=== PATIENT | male | born 1965 | race Caucasian/White ===

== ENCOUNTER 2019-10-06 18:04 | Inpatient (IN) | payer MEDICARE ==
[2019-10-06] MEDS ORDERED: SODIUM CHLORIDE 0.9% 1,000 ML IV STA (18:42)
--- NOTE | 2019-10-06 18:43 | ED ---
Neuro HPI - General Chief Complaint: Neuro Symptoms/Deficit Stated Complaint: lt sided weakness Time Seen by Provider: 10/06/19 18:40 Source: patient, RN notes reviewed, old records reviewed Mode of arrival: ambulatory Limitations: no limitations - History of Present Illness Is the patient presenting with stroke symptoms?: Yes -: days(s) Initial Comments: This is a 54-year-old male to the ER for evaluation. Patient has a long medical history coming in to the ED for some speech and left arm weakness symptoms began last night. Less than persistent and progressing. Slurred speech has worsened weakness is about the same. His appetite also slurred speech. Aside from most complaints patient has not no history of CVA no history of heart disease Location: speech, dysarthria, left arm History of same: No Place: home Severity: mild Quality: weak, tingling Improves With: none Worsens With: none Context: gradual onset Associated Symptoms: denies other symptoms Treatments Prior to Arrival: none - Related Data Allergies/Adverse Reactions: Allergies Allergy/AdvReac Type Severity Reaction Status Date / Time Unable to Assess Allergy Verified 10/06/19 18:25 Review of Systems ROS Statement: Those systems with pertinent positive or pertinent negative responses have been documented in the HPI. ROS Other: All systems not noted in ROS Statement are negative. General Exam Limitations: no limitations General appearance: alert, in no apparent distress Head exam: Present: atraumatic, normocephalic, normal inspection Eye exam: Present: normal appearance, PERRL, EOMI. Absent: scleral icterus, conjunctival injection, periorbital swelling ENT exam: Present: normal exam, mucous membranes moist Neck exam: Present: normal inspection. Absent: tenderness, meningismus, ly mphadenopathy Respiratory exam: Present: normal lung sounds bilaterally. Absent: respiratory distress, wheezes, rales, rhonchi, stridor Cardiovascular Exam: Present: regular rate, normal rhythm, normal heart sounds. Absent: systolic murmur, diastolic murmur, rubs, gallop, clicks GI/Abdominal exam: Present: soft, normal bowel sounds. Absent: distended, tenderness, guarding, rebound, rigid Extremities exam: Present: normal inspection, full ROM, normal capillary refill. Absent: tenderness, pedal edema, joint swelling, calf tenderness Back exam: Present: normal inspection Neurological exam: Present: alert, oriented X3, CN II-XII intact Psychiatric exam: Present: normal affect, normal mood Skin exam: Present: warm, dry, intact, normal color. Absent: rash Stroke MDM - Lab Data Result diagrams: 10/06/19 18:43 10/06/19 18:43 Lab Results 10/06/19 10/06/19 10/06/19 Range/Units 18:43 18:43 18:43 WBC 8.7 (3.8-10.6) k/uL RBC 4.19 L (4.30-5.90) m/uL Hgb 12.5 L (13.0-17.5) gm/dL Hct 37.7 L (39.0-53.0) % MCV 90.0 (80.0-100.0) fL MCH 29.9 (25.0-35.0) pg MCHC 33.3 (31.0-37.0) g/dL RDW 13.9 (11.5-15.5) % Plt Count 211 (150-450) k/uL Neutrophils % 84 % Lymphocytes % 8 % Monocytes % 6 % Eosinophils % 1 % Basophils % 0 % Neutrophils # 7.3 (1.3-7.7) k/uL Lymphocytes # 0.7 L (1.0-4.8) k/uL Monocytes # 0.5 (0-1.0) k/uL Eosinophils # 0.1 (0-0.7) k/uL Basophils # 0.0 (0-0.2) k/uL PT 9.6 (9.0-12.0) sec INR 0.9 (<1.2) APTT 22.0 (22.0-30.0) sec Sodium 139 (137-145) mmol/L Potassium 5.6 H (3.5-5.1) mmol/L Chloride 108 H (98-107) mmol/L Carbon Dioxide 23 (22-30) mmol/L Anion Gap 8 mmol/L BUN 51 H (9-20) mg/dL Creatinine 2.05 H (0.66-1.25) mg/dL Est GFR (CKD-EPI)AfAm 42 (>60 ml/min/1.73 sqM) Est GFR (CKD-EPI)NonAf 36 (>60 ml/min/1.73 sqM) Glucose 160 H (74-99) mg/dL Calcium 9.4 (8.4-10.2) mg/dL Total Bilirubin 0.5 (0.2-1.3) mg/dL AST 17 (17-59) U/L ALT 17 L (21-72) U/L Alkaline Phosphatase 124 (38-126) U/L Troponin I (0.000-0.034) ng/mL Total Protein 6.3 (6.3-8.2) g/dL Albumin 3.7 (3.5-5.0) g/dL Lipase 28 (23-300) U/L Urine Color Urine Appearance (Clear) Urine pH (5.0-8.0) Ur Specific [place] (1.001-1.035) Urine Protein (Negative) Urine Glucose (UA) (Negative) Urine Ketones (Negative) Urine Blood (Negative) Urine Nitrite (Negative) Urine Bilirubin (Negative) Urine Urobilinogen (<2.0) mg/dL Ur Leukocyte Esterase (Negative) Urine RBC (0-5) /hpf Urine WBC (0-5) /hpf 10/06/19 10/06/19 Range/Units 18:43 20:20 WBC (3.8-10.6) k/uL RBC (4.30-5.90) m/uL Hgb (13.0-17.5) gm/dL Hct (39.0-53.0) % MCV (80.0-100.0) fL MCH (25.0-35.0) pg MCHC (31.0-37.0) g/dL RDW (11.5-15.5) % Plt Count (150-450) k/uL Neutrophils % % Lymphocytes % % Monocytes % % Eosinophils % % Basophils % % Neutrophils # (1.3-7.7) k/uL Lymphocytes # (1.0-4.8) k/uL Monocytes # (0-1.0) k/uL Eosinophils # (0-0.7) k/uL Basophils # (0-0.2) k/uL PT (9.0-12.0) sec INR (<1.2) APTT (22.0-30.0) sec Sodium (137-145) mmol/L Potassium (3.5-5.1) mmol/L Chloride (98-107) mmol/L Carbon Dioxide (22-30) mmol/L Anion Gap mmol/L BUN (9-20) mg/dL Creatinine (0.66-1.25) mg/dL Est GFR (CKD-EPI)AfAm (>60 ml/min/1.73 sqM) Est GFR (CKD-EPI)NonAf (>60 ml/min/1.73 sqM) Glucose (74-99) mg/dL Calcium (8.4-10.2) mg/dL Total Bilirubin (0.2-1.3) mg/dL AST (17-59) U/L ALT (21-72) U/L Alkaline Phosphatase (38-126) U/L Troponin I 0.036 H* (0.000-0.034) ng/mL Total Protein (6.3-8.2) g/dL Albumin (3.5-5.0) g/dL Lipase (23-300) U/L Urine Color Yellow Urine Appearance Clear (Clear) Urine pH 6.5 (5.0-8.0) Ur Specific [place] 1.020 (1.001-1.035) Urine Protein 1+ H (Negative) Urine Glucose (UA) Negative (Negative) Urine Ketones Negative (Negative) Urine Blood Negative (Negative) Urine Nitrite Negative (Negative) Urine Bilirubin Negative (Negative) Urine Urobilinogen 2.0 (<2.0) mg/dL Ur Leukocyte Esterase Negative (Negative) Urine RBC 1 (0-5) /hpf Urine WBC 2 (0-5) /hpf - NIH Stroke Scale 1a. Level of Consciousness: (0) alert 1b. LOC Questions: (0) answers correctly 1c. LOC Commands: (0) performs tasks correctly 2. Best Gaze: (0) normal 3. Visual: (0) no visual loss 4. Facial Palsy: (0) normal symmetrical movement 5a. Motor Arm Left: (1) drift 5b. Motor Arm Right: (0) no drift 6a. Motor Leg Left: (0) no drift 6b. Motor Leg Right: (0) no drift 7. Limb Ataxia: (0) absent 8. Sensory: (0) normal 9. Best Language: (1) mild/moderate aphasia 10. Dysarthria: (1) mild/moderate dysarthria 11. Extinction/Inattention: (0) no abnormality - Thrombolytic Inclusion/Exclusion Thrombolytic Exclusion Criteria: Symptom Onset > 4.5 Hours - Medical Decision Making 54 -year-old male to ED w complicated medical history coming to the ED for evaluation of positive CVA symptoms would not for neurological evaluation monitor - Radiology Data Radiology results: report reviewed (CT brain is negative disease), image rev iewed - EKG Data -: EKG Interpreted by Me (EKG shows normal sinus over 69, LA 166, QRS 90, QTC 450) Past Medical History Past Medical History: Renal Disease Additional Past Medical History / Comment(s): pancreatitis History of Any Multi-Drug Resistant Organisms: None Reported Additional Past Surgical History / Comment(s): kidney and pancreases transplant, lt arm fistula Past Psychological History: No Psychological Hx Reported Smoking Status: Current every day smoker Past Alcohol Use History: Rare Past Drug Use History: None Reported Course Vital Signs 10/06/19 18:20 Temperature 98.2 F Pulse Rate 82 Respiratory 20 Rate Blood Pressure 161/91 O2 Sat by Pulse 98 Oximetry - Reevaluation(s) Reevaluation #1: 10/06/19 21:48 Medical history and medical record is reviewed Disposition Clinical Impression: Cerebrovascular accident (CVA) Disposition: ADMITTED IP TO THIS [facility] Condition: Fair Is patient prescribed a controlled substance at d/c from ED?: No Referrals: None,Stated [Primary Care Provider] - 1-2 days
--- NOTE | 2019-10-06 19:48 | XR ---
EXAMINATION TYPE: XR chest 2V DATE OF EXAM: 10/06/2019 COMPARISON: NONE HISTORY: Weakness TECHNIQUE: Frontal and lateral views of the chest are obtained. FINDINGS: Heart and mediastinum are within normal limits. Lungs are clear. Diaphragm is normal. Bony thorax is intact. IMPRESSION: Normal chest
--- NOTE | 2019-10-06 19:54 | CT ---
EXAMINATION TYPE: CT brain wo con for TPA DATE OF EXAM: 10/06/2019 COMPARISON: None HISTORY: possible stroke left sided weekness hx renal disease CT DLP: 1080.4 mGycm Automated exposure control for dose reduction was used. FINDINGS: There is cerebral cortical atrophy. There is no mass effect nor midline shift. There is no sign of in tracranial hemorrhage. Calvarium is intact. IMPRESSION: CEREBRAL ATROPHY. NO ACUTE INTRACRANIAL ABNORMALITY.
[2019-10-06 20:10] LABS: Basophils % (A) 0 %; Eosinophils # (A) 0.1 k/uL (0-0.7); Eosinophils % (A) 1 %; HCT 37.7 % (39.0-53.0); HGB 12.5 gm/dL (13.0-17.5); Lymphocytes # (A) 0.7 k/uL (1.0-4.8); Lymphocytes % (A) 8 %; MCH 29.9 pg (25.0-35.0); MCHC 33.3 g/dL (31.0-37.0); Mean Platelet Volume 6.2; Monocytes # (A) 0.5 k/uL (0-1.0); Monocytes % (A) 6 %; Neutrophils # (A) 7.3 k/uL (1.3-7.7); Neutrophils % (A) 84 %; Platelet Count 211 k/uL (150-450); RBC 4.19 m/uL (4.30-5.90); RDW 13.9 % (11.5-15.5); WBC 8.7 k/uL (3.8-10.6)
[2019-10-06 20:17] LABS: Albumin 3.7 g/dL (3.5-5.0); Calcium 9.4 mg/dL (8.4-10.2); Potassium 5.6 mmol/L (3.5-5.1); Total Bilirubin 0.5 mg/dL (0.2-1.3); Total Protein 6.3 g/dL (6.3-8.2)
[2019-10-06 20:26] LABS: Appearance,Urine Clear (Clear); Bilirubin,Urine Negative (Negative); Blood,Urine Negative (Negative); Color,Urine Yellow; Glucose,Urine (UA) Negative (Negative); Ketones,Urine Negative (Negative); Leukocyte Esterase,Urine Negative (Negative); Nitrite,Urine Negative (Negative); PH, Urine 6.5 (5.0-8.0); Protein,Urine 1+ (Negative); RBC,Urine 1 /hpf (0-5); WBC,Urine 2 /hpf (0-5)
[2019-10-06 20:30] LABS: INR 0.9 (<1.2); Prothrombin Time 9.6 sec (9.0-12.0)
[2019-10-06] MEDS ORDERED: ASPIRIN 325 MG TAB PO STA (21:45)
[2019-10-06] MEDS ORDERED: ASPIRIN 325 MG TAB ONE (23:43)
[2019-10-07 05:02] LABS: Glucose,Whole Blood 230 mg/dL (75-99)
[2019-10-07 06:50] LABS: Glucose,Whole Blood 137 mg/dL (75-99)
[2019-10-07 08:39] LABS: Calcium 8.7 mg/dL (8.4-10.2); Potassium 4.9 mmol/L (3.5-5.1)
[2019-10-07] MEDS ORDERED: HYDROcodone/APAP 5-325MG 1 EACH TAB PO PRN (08:58)
[2019-10-07] MEDS ORDERED: METOCLOPRAMIDE 5 MG TAB PO PRN (08:58)
[2019-10-07] MEDS ORDERED: ACETAMINOPHEN TAB 500 MG TAB PO PRN (08:58)
[2019-10-07] MEDS ORDERED: SIMETHICONE 80 MG CHEWABLE PO PRN (08:58)
[2019-10-07] MEDS ORDERED: LORATADINE 10 MG TAB PO PRN (08:58)
[2019-10-07] MEDS ORDERED: hydrALAZINE HCL 50 MG TAB PO SCH (09:00)
[2019-10-07] MEDS: SODIUM CHLORIDE 0.9% 1,000 ML IV SCH ×3 (09:42→17:28)
[2019-10-07] MEDS: SODIUM BICARBONATE TAB 650 MG TAB PO SCH ×4 (09:43→21:03)
[2019-10-07] MEDS: LOSARTAN 25 MG TAB PO SCH (09:43)
[2019-10-07] MEDS: predniSONE 5 MG TAB PO SCH (09:43)
[2019-10-07] MEDS: GABAPENTIN 300 MG CAP PO SCH ×3 (09:43→21:03)
[2019-10-07] MEDS: MYCOPHENOLATE MOFETIL 500 MG TAB PO SCH ×2 (09:44→20:46)
[2019-10-07] MEDS: TACROLIMUS 1 MG CAP PO SCH ×2 (09:44→20:47)
--- NOTE | 2019-10-07 09:46 | P.CNNES ---
History of Present Illness Consult date: 10/07/19 Reason for Consult: Stroke Chief complaint: Speech difficulty and LUE weakness History of Present Illness: HISTORY OF PRESENT ILLNESS: Thank you for allowing me to evaluate Mr. Richar Olson. Mr. Olson is a 54-year-old R-handed man with past medical history of pancreatitis and renal disease (from diabetes per patient), s/p kidney and pancreas transplant, diabetes, who presents with [facility] for having speech difficulty and left arm weakness. Initial NIH stroke scale 3. Patient states that he started having symptoms since Sunday, but he only came to the hospital yesterday because his sisters pressured him to. Patient states he still has slurred speech and some weakness in his L arm and leg, but slightly improved since yesterday. Patient denies ever having similar symptoms in the past. Denies headache, nausea, vomiting, double/blurry vision, numbness, tingling, SOB, CP, diarrhea, recent sickness or fevers. Pt does not have a PCP although his transplant and diabetes doctor recommended him to get one. PAST MEDICAL HISTORY: Pancreatitis and renal disease s/p kidney and pancreas transplant, PAST SURGICAL HISTORY: Kidney and pancreas transplant, left arm fistula HOME MEDICATIONS: Cialis, insulin pump, prednisone, atorvastatin, tacrolimus, losartan, sodium bicarbonate, hydralazine, omeprazole, CellCept, carvedilol, gabapentin, Percocet, Jachin, loratadine ALLERGIES: "a strong antibiotic" but does not remember name SOCIAL HISTORY: Current every day smoker. REVIEW OF SYSTEMS: The 14 systems are reviewed and no additional points are identified compared to the review of systems documented history and physical PHYSICAL EXAMINATION: VITAL SIGNS: T 97.9 HR 72 RR 18 BP 141/76 O2 sat 92% on RA GEN.: NAD, pleasant and cooperative HEENT: NCAT, sclera without icterus NECK: Supple, no carotid bruit SKIN AND EXTREMITIES: Warm to touch, no edema NEURO: MENTAL STATUS: Patient alert and oriented to self, place, time. Able to name the current president. Speech fluent, able to name and repeat, following all commands readily. Mild dysarthria. No right and left disorientation, neglect. CRANIAL NERVES II THROUGH XII: II: Pupils are equal and reactive to light symmetrically. No afferent pupillary defect. Visual gonzalez are intact. III, IV, : No ptosis. Extraocular movements full. No nystagmus. V: Facial sensation intact from V1-3. VII. mild L nasolabial fold flattening VIII: Hearing intact to finger rub bilaterally. IX, X: Symmetric palate elevation. XI: Shoulder shrug intact. XII: Tongue midline without fasciculation or atrophy. MOTOR: Normal bulk/tone. + LUE pronator drift. No tremor. LUE proximal strength 4/5, biceps triceps 4+5, finger gasket inspector 4+/5. LLE hip flexion 4+/5, knee flexion/extension 4/5, plantarflexion/dorsiflexion 5/5. RUE/RLE 5/5 strength. SENSORY: Decreased to light touch, temperature in LUE and LLE. Romberg is negative. REFLEXES: 2+ throughout. Toes are downgoing. COORDINATION: Finger to nose intact. No dysmetria. GAIT: Narrow-based and stable. Able to toe/heel/tandem walk DIAGNOSTIC TESTING: LABORATORY: WBC 8.7 hemoglobin 12.5 platelets 12/23/2017 and 0.6 INR 1.9 sodium 139 potassium 5.6 chloride 108 bicarb 23 BUN 51 creatinine 2.05 glucose 160 AST 17 ALT 17 alk phos 124 troponin 0.036 lipase 28 urinalysis 1+ protein TSH 2.860 Total Cholesterol 133 LDL 76 HDL 32 TG 127 IMAGING: CT head without contrast 10/06/2019: Cerebral atrophy. No acute intracranial abnormality. EKG: Normal SR. ASSESSMENT: 54-year-old R-handed man with past medical history of pancreatitis and renal disease (from diabetes per patient), s/p kidney and pancreas transplant, diabetes, who presents with [facility] for having speech difficulty and left arm weakness. Patient's NIH stroke scale today is a 4. Patient with dysarthria, LUE/LLE weakness and numbness. Most likely etiology small vessel disease. Risk factors include diabetes and current smoking status. RECOMMENDATIONS: 1. MRI brain without contrast 2. Carotid US 3. Transthoracic echocardiogram obtained. 4. Cardiac monitoring: no atrial arrhythmia since admission 5. ASA 81mg qday and Plavix 75mg qday (dual antiplatelet therapy for 3 weeks per POINT trial, then Plavix 75mg qday only as patient had been taking ASA previously) 7. increase dose of Atorvastatin 40mg qhs 8. Labs: A1C 9. PT/OT/ST per protocol 10. Discussed with patient about stroke prevention guidelines. Medication compliance, hypertension/diabetes control, lifestyle changes including no sm oking, drinking in moderation, losing weight, exercising, eating healthier 11. Neurology will continue to follow. Patient can be discharged after MRI brain and Carotid US obtained. 12. Patient needs to follow up with neurologist as outpatient with her 1-2 weeks of discharge Past Medical History Past Medical History: Dialysis, Hyperlipidemia, Renal Disease Additional Past Medical History / Comment(s): pancreatitis, last dialysis 2012, hernia, History of Any Multi-Drug Resistant Organisms: None Reported Additional Past Surgical History / Comment(s): kidney and pancreases transplant 2012, lt arm fistul which has been reserved june 2019 Past Anesthesia/Blood Transfusion Reactions: No Reported Reaction Past Psychological History: Depression Smoking Status: Current every day smoker Past Alcohol Use History: Rare Past Drug Use History: None Reported Medications and Allergies Home Medications Medication Instructions Recorded Confirmed Type Acetaminophen Tab [Tylenol Tab] 1,000 mg PO Q6HR PRN 10/06/19 10/06/19 History Atorvastatin [Lipitor] 20 mg PO HS 10/06/19 10/06/19 History Carvedilol 25 mg PO BID 10/06/19 10/06/19 History Gabapentin [Neurontin] 300 mg PO TID 10/06/19 10/06/19 History Hydrocodone/Acetaminophen [Jachin 1 tab PO Q4H PRN 10/06/19 10/06/19 History 5-325] Insulin Aspart (For Pump) [NovoLOG 0.01 unit SQ-PUMP CONTINUOUS 10/06/19 10/06/19 History (For Pump)] Loratadine 10 mg PO DAILY PRN 10/06/19 10/06/19 History Losartan [Cozaar] 25 mg PO DAILY 10/06/19 10/06/19 History Metoclopramide [Reglan] 5 mg PO TID PRN 10/06/19 10/06/19 History Mycophenolate Mofetil [Cellcept] 1,000 mg PO BID 10/06/19 10/06/19 History Omeprazole 40 mg PO DAILY 10/06/19 10/06/19 History Simethicone [Gas-X] 125 mg PO QID PRN 10/06/19 10/06/19 History Sodium Bicarbonate Tab 650 mg PO QID 10/06/19 10/06/19 History Tacrolimus [Prograf] 2 mg PO BID 10/06/19 10/06/19 History Tadalafil [Cialis] 5 mg PO DAILY PRN 10/06/19 10/06/19 History hydrALAZINE HCL [Apresoline] 50 mg PO TID 10/06/19 10/06/19 History oxyCODONE-APAP 5-325MG [Percocet 1 tab PO Q4HR PRN 10/06/19 10/06/19 History 5-325 mg] predniSONE 5 mg PO DAILY 10/06/19 10/06/19 History Allergies Allergy/AdvReac Type Severity Reaction Status Date / Time Unable to Assess Allergy Verified 10/06/19 21:59 Physical Examination - Vital Signs Vital Signs: Vital Signs Temp Pulse Resp BP Pulse Ox 10/07/19 06:00 68 18 157/89 94 L 10/07/19 05:00 68 17 155/83 93 L 10/07/19 04:00 97.9 F 72 18 141/76 92 L 10/07/19 03:00 72 17 141/76 94 L 10/07/19 02:00 74 19 155/78 94 L 10/07/19 01:00 73 22 155/78 94 L 10/07/19 00:30 73 16 160/96 95 10/07/19 00:15 75 24 96 10/07/19 00:00 97.6 F 80 21 167/87 96 10/06/19 18:20 98.2 F 82 20 161/91 98 Intake and Output 10/06/19 10/06/19 10/07/19 14:59 22:59 06:59 Intake Total 1600 Output Total 450 Balance 1150 Intake: IV 1600 Sodium Chloride 0.9% 1, 600 000 ml @ 100 mls/hr IV . Q10H [facility] Rx#:[id number] Sodium Chloride 0.9% 1, 1000 000 ml @ 999 mls/hr IV . Q1H1M STA Rx#:[id number] Output: Urine 450 Other: # Voids 1 Weight 83.915 kg 83.915 kg Results - Laboratory Findings CBC and BMP: 10/06/19 18:43 10/07/19 03:17 Abnormal Lab Findings: Abnormal Labs 11/25/19 11/25/19 11/25/19 18:43 18:43 18:43 RBC 4.19 L Hgb 12.5 L Hct 37.7 L Lymphocytes # 0.7 L Potassium 5.6 H Chloride 108 H BUN 51 H Creatinine 2.05 H Glucose 160 H POC Glucose (mg/dL) ALT 17 L Troponin I 0.036 H* Urine Protein 10/06/19 10/06/19 10/07/19 20:20 23:58 06:39 RBC Hgb Hct Lymphocytes # Potassium Chloride BUN Creatinine Glucose POC Glucose (mg/dL) 230 H 137 H ALT Troponin I Urine Protein 1+ H
[2019-10-07 09:51] LABS: Basophils % (A) 0 %; Eosinophils # (A) 0.1 k/uL (0-0.7); Eosinophils % (A) 1 %; HCT 34.1 % (39.0-53.0); HGB 11.5 gm/dL (13.0-17.5); Lymphocytes % (A) 14 %; MCH 30.3 pg (25.0-35.0); MCHC 33.6 g/dL (31.0-37.0); MCV 90.2 fL (80.0-100.0); Mean Platelet Volume 6.1; Monocytes # (A) 0.5 k/uL (0-1.0); Monocytes % (A) 7 %; Neutrophils # (A) 5.2 k/uL (1.3-7.7); Neutrophils % (A) 76 %; Platelet Count 175 k/uL (150-450); RBC 3.78 m/uL (4.30-5.90); RDW 13.9 % (11.5-15.5); WBC 6.9 k/uL (3.8-10.6)
[2019-10-07] MEDS: CARVEDILOL 12.5 MG TAB PO SCH ×2 (10:10→16:26)
[2019-10-07] MEDS: ASPIRIN 81 MG PO SCH (10:10)
[2019-10-07] MEDS: CLOPIDOGREL 75 MG TAB PO SCH (10:10)
--- NOTE | 2019-10-07 10:12 | ECHOF ---
Referral Reason:Thrombus MEASUREMENTS -------- HEIGHT: 172.7 cm WEIGHT: 83.9 kg BP: 157/89 RVIDd: 3.2 cm (< 3.3) IVSd: 1.3 cm (0.6 - 1.1) LVIDd: 4.2 cm (3.9 - 5.3) LVPWd: 1.5 cm (0.6 - 1.1) IVSs: 1.8 cm LVIDs: 3.6 cm LVPWs: 1.8 cm LA Diam: 3.3 cm (2.7 - 3.8) LAESV Index (A-L): 19.94 ml/m Ao Diam: 3.0 cm (2.0 - 3.7) AV Cusp: 1.5 cm (1.5 - 2.6) LA Diam: 4.1 cm (2.7 - 3.8) MV EXCURSION: 14.924 mm (> 18.000) MV EF SLOPE: 64 mm/s (70 - 150) EPSS: 1.2 cm MV E Magdiel: 0.68 m/s MV DecT: 171 ms MV A Magdiel: 0.75 m/s MV E/A Ratio: 0.91 RAP: 5.00 mmHg RVSP: 20.32 mmHg FINDINGS -------- Sinus rhythm. This was a technically good study. The left ventricular size is normal. There is mild concentric left ventricular hypertrophy. Overa ll left ventricular systolic function is normal with, an EF between 55 - 60 %. The right ventricle is normal in size. The left atrial size is normal. Normal LA size by volume 22+/-6 ml/m2. The right atrial size is normal. The aortic valve is trileaflet, and appears structurally normal. No aortic stenosis or regurgitation. Mild mitral annular calcification present. Mild mitral regurgitation is present. Mild tricuspid regurgitation present. There is no evidence of pulmonary hypertension. The right v entricular systolic pressure, as measured by Doppler, is 20.32mmHg. There is no pulmonic regurgitation present. The aortic root size is normal. There is no pericardial effusion. CONCLUSIONS -------- 1. Sinus rhythm. 2. This was a technically good study. 3. The left ventricular size is normal. 4. There is mild concentric left ventricular hypertrophy. 5. Overall left ventricular systolic function is normal with, an EF between 55 - 60 %. 6. The right ventricle is normal in size. 7. The left atrial size is normal. 8. Normal LA size by volume 22+/-6 ml/m2. 9. The right atrial size is normal. 10. The aortic valve is trileaflet, and appears structurally normal. No aortic stenosis or regurgitat ion. 11. Mild mitral annular calcification present. 12. Mild mitral regurgitation is present. 13. Mild tricuspid regurgitation present. 14. There is no evidence of pulmonary hypertension. 15. The right ventricular systolic pressure, as measured by Doppler, is 20.32mmHg. 16. There is no pulmonic regurgitation present. 17. The aortic root size is normal. 18. There is no pericardial effusion. WEAVING INSTRUCTOR: Rand Bazzi RDCS
--- NOTE | 2019-10-07 11:28 | P.HPIM ---
History of Present Illness this is a pleasant 54 years old male with past medical history of kidney and pancreatic transplant in 2012 , hyperlipidemia and chronic kidney disease since 2013,followed by pericardial effusion status post drainage as per patient,he presents because of his third speech and left upper extremity weakness of 2 days' duration with partial improvement prior to coming to the hospital. Patient states that he is a full [place] he came to [place] about 3 weeks ago for hunting season, Sunday morning he fell on ice, however later on he started developing weakness in his left upper and lower extremity associated with slurred speech. However he denies chest pain or dyspnea, no headache, no blurred vision or difficulty swallowing. Vitas looks stable and blood pressure is 157/89.labs show an unremarkable CBC, troponin is elevated at 0.03,liver enzymes not elevated, TSH 2.8,UA is not suspicious of infection.echocardiogram showed ejection fraction of 55-60%, mild valvular heart disease.EKG: Showed normal sinus rhythm at 69 with possible LVH. Chest x-ray: No acute process.CT of the brain showing cerebral atrophy with no acute intracranial process. neurologist already evaluated the patient and recommended an MRI of the brain without contrast, corrected Dopplex, echocardiogram, continue with aspirin and Plavix, Review of Systems CONSTITUTIONAL: No fever, no malaise, no fatigue. HEENT: No recent visual problems or hearing problems. Denied any sore throat. CARDIOVASCULAR: No orthopnea, PND, no palpitations, no syncope. PULMONARY: No shortness of breath, no cough, no hemoptysis. GASTROINTESTINAL: No diarrhea, no nausea, no vomiting, no abdominal pain. Normoactive bowel sounds. NEUROLOGICAL: No headaches, no weakness, no numbness. HEMATOLOGICAL: Denies any bleeding or petechiae. GENITOURINARY: Denies any burning micturition, frequency, or urgency. MUSCULOSKELETAL/RHEUMATOLOGICAL: Denies any joint pain, swelling, or any muscle pain. ENDOCRINE: Denies any polyuria or polydipsia. Past Medical History Past Medical History: Dialysis, Hyperlipidemia, Renal Disease Additional Past Medical History / Comment(s): pancreatitis, last dialysis 2012, hernia, History of Any Multi-Drug Resistant Organisms: None Reported Additional Past Surgical History / Comment(s): kidney and pancreases transplant 2012, lt arm fistul which has been reserved june 2019 Past Anesthesia/Blood Transfusion Reactions: No Reported Reaction Past Psychological History: Depression Smoking Status: Current every day smoker Past Alcohol Use History: Rare Past Drug Use History: None Reported Medications and Allergies Home Medications Medication Instructions Recorded Confirmed Type Acetaminophen Tab [Tylenol Tab] 1,000 mg PO Q6HR PRN 10/06/19 10/06/19 History Atorvastatin [Lipitor] 20 mg PO HS 10/06/19 10/06/19 History Carvedilol 25 mg PO BID 10/06/19 10/06/19 History Gabapentin [Neurontin] 300 mg PO TID 10/06/19 10/06/19 History Hydrocodone/Acetaminophen [[place] 1 tab PO Q4H PRN 10/06/19 10/06/19 History 5-325] Insulin Aspart (For Pump) [NovoLOG 0.01 unit SQ-PUMP CONTINUOUS 10/06/19 History (For Pump)] Loratadine 10 mg PO DAILY PRN 10/06/19 10/06/19 History Losartan [Cozaar] 25 mg PO DAILY 10/06/19 10/06/19 History Metoclopramide [Reglan] 5 mg PO TID PRN 10/06/19 10/06/19 History Mycophenolate Mofetil [Cellcept] 1,000 mg PO BID 10/06/19 10/06/19 History Omeprazole 40 mg PO DAILY 10/06/19 10/06/19 History Simethicone [Gas-X] 125 mg PO QID PRN 10/06/19 10/06/19 History Sodium Bicarbonate Tab 650 mg PO QID 10/06/19 10/06/19 History Tacrolimus [Prograf] 2 mg PO BID 10/06/19 10/06/19 History Tadalafil [Cialis] 5 mg PO DAILY PRN 10/06/19 10/06/19 History hydrALAZINE HCL [Apresoline] 50 mg PO TID 10/06/19 10/06/19 History oxyCODONE-APAP 5-325MG [Percocet 1 tab PO Q4HR PRN 10/06/19 10/06/19 History 5-325 mg] predniSONE 5 mg PO DAILY 10/06/19 10/06/19 History Allergies Allergy/AdvReac Type Severity Reaction Status Date / Time Unable to Assess Allergy Verified 10/06/19 21:59 Physical Exam Vitals: Vital Signs Temp Pulse Resp BP Pulse Ox 10/07/19 06:00 68 18 157/89 94 L 10/07/19 05:00 68 17 155/83 93 L 10/07/19 04:00 97.9 F 72 18 141/76 92 L 10/07/19 03:00 72 17 141/76 94 L 10/07/19 02:00 74 19 155/78 94 L 10/07/19 01:00 73 22 155/78 94 L 10/07/19 00:30 73 16 160/96 95 10/07/19 00:15 75 24 96 10/07/19 00:00 97.6 F 80 21 167/87 96 10/06/19 18:20 98.2 F 82 20 161/91 98 Intake and Output 10/06/19 10/07/19 10/07/19 22:59 06:59 14:59 Intake Total 1600 Output Total 450 Balance 1150 Intake: IV 1600 Sodium Chloride 0.9% 1, 600 000 ml @ 100 mls/hr IV . Q10H [facility] Rx#:[id number] Sodium Chloride 0.9% 1, 1000 000 ml @ 999 mls/hr IV . Q1H1M [facility] Rx#:[id number] Output: Urine 450 Other: Voiding Method Urinal # Voids 1 Weight 83.915 kg 83.915 kg GENERAL: The patient is alert and oriented x3, not in any acute distress. Well developed, well nourished. HEENT: Pupils are round and equally reacting to light. EOMI. No scleral icterus. No conjunctival pallor. Normocephalic, atraumatic. No pharyngeal erythema. No thyromegaly. CARDIOVASCULAR: S1 and S2 present. No murmurs, rubs, or gallops. PULMONARY: Chest is clear to auscultation, no wheezing or crackles. ABDOMEN: Soft, nontender, nondistended, normoactive bowel sounds. No palpable organomegaly. MUSCULOSKELETAL: No joint swelling or deformity. EXTREMITIES: No cyanosis, clubbing, or pedal edema. -NEUROLOGICAL: cranial nerves are grossly intact he has mild weakness in his left upper lower extremity, other extremities and limbs are 5/5 in strength. Sensation is intact. SKIN: No rashes. No petechiae Results CBC & Chem 7: 10/07/19 03:17 10/07/19 03:17 Labs: Abnormal Lab Results - Last 24 Hours (Table) 10/06/19 10/06/19 10/06/19 Range/Units 18:43 18:43 18:43 RBC 4.19 L (4.30-5.90) m/uL Hgb 12.5 L (13.0-17.5) gm/dL Hct 37.7 L (39.0-53.0) % Lymphocytes # 0.7 L (1.0-4.8) k/uL Potassium 5.6 H (3.5-5.1) mmol/L Chloride 108 H (98-107) mmol/L BUN 51 H (9-20) mg/dL Creatinine 2.05 H (0.66-1.25) mg/dL Glucose 160 H (74-99) mg/dL POC Glucose (mg/dL) (75-99) mg/dL ALT 17 L (21-72) U/L Troponin I 0.036 H* (0.000-0.034) ng/mL HDL Cholesterol (40-60) mg/dL Urine Protein (Negative) 10/06/19 10/06/19 10/07/19 Range/Units 20:20 23:58 03:17 RBC (4.30-5.90) m/uL Hgb (13.0-17.5) gm/dL Hct (39.0-53.0) % Lymphocytes # (1.0-4.8) k/uL Potassium (3.5-5.1) mmol/L Chloride (98-107) mmol/L BUN (9-20) mg/dL Creatinine (0.66-1.25) mg/dL Glucose (74-99) mg/dL POC Glucose (mg/dL) 230 H (75-99) mg/dL ALT (21-72) U/L Troponin I (0.000-0.034) ng/mL HDL Cholesterol 32 L (40-60) mg/dL Urine Protein 1+ H (Negative) 10/07/19 10/07/19 10/07/19 Range/Units 03:17 03:17 03:17 RBC 3.78 L (4.30-5.90) m/uL Hgb 11.5 L (13.0-17.5) gm/dL Hct 34.1 L (39.0-53.0) % Lymphocytes # (1.0-4.8) k/uL Potassium (3.5-5.1) mmol/L Chloride 112 H (98-107) mmol/L BUN 45 H (9-20) mg/dL Creatinine 1.95 H (0.66-1.25) mg/dL Glucose 173 H (74-99) mg/dL POC Glucose (mg/dL) (75-99) mg/dL ALT (21-72) U/L Troponin I 0.039 H* (0.000-0.034) ng/mL HDL Cholesterol (40-60) mg/dL Urine Protein (Negative) 10/07/19 Range/Units 06:39 RBC (4.30-5.90) m/uL Hgb (13.0-17.5) gm/dL Hct (39.0-53.0) % Lymphocytes # (1.0-4.8) k/uL Potassium (3.5-5.1) mmol/L Chloride (98-107) mmol/L BUN (9-20) mg/dL Creatinine (0.66-1.25) mg/dL Glucose (74-99) mg/dL POC Glucose (mg/dL) 137 H (75-99) mg/dL ALT (21-72) U/L Troponin I (0.000-0.034) ng/mL HDL Cholesterol (40-60) mg/dL Urine Protein (Negative) Thrombosis Risk Factor Assmnt - Choose All That Apply Any of the Below Risk Factors Present?: Yes Each Factor Represents 1 point: Age 41-60 years, Medical pt on bed rest, Obesity (BMI >25) Other Risk Factors: No Other congenital or acquired thrombophilia - If yes, enter type in comment: Yes Each Risk Factor Represents 5 Points: Stroke (< 1 month) Thrombosis Risk Factor Assessment Total Risk Factor Score: 8 Thrombosis Risk Factor Assessment Level: High Risk Assessment and Plan Assessment: acute cerebrovascular accident with left hemiparesis elevated troponin status post kidney and pancreatic transplant, since 2013 Chronic kidney disease, patient has elevated creatinine with unknown baseline. Plan: this is a pleasant 54 years old male who presents with acute stroke. continue with aspirin and Plavix, follow-up recommendation by neurologist and pulmonary/critical care team.elevated troponincall cardiology consult. Labs and medication were reviewed.. Continue same treatment. Continue with symptomatic treatment. Resume home medication. Monitor lytes and vitals. DVT and GI prophylaxis. Further recommendations of the clinical course of the patient DVT prophylaxis: Subcutaneous heparin GI Prophylaxis: Pepcid PT/OT: Pending Prognosis is guarded
[2019-10-07 11:43] LABS: Glucose,Whole Blood 167 mg/dL (75-99)
--- NOTE | 2019-10-07 12:35 | MR ---
MR brain without contrast HISTORY: Slurred speech, cerebrovascular accident, left-sided weakness and numbness Multiplanar multisequence imaging through the brain. Correlation to CT brain 10/06/2019. There is restricted diffusion in the brainstem to the right of midline in the manjeet with corresponding abnormal increased signal seen on inversion recovery T2-weighted sequences, intermediate signal on T 1-weighted images. No significant mass effect. Scattered and confluent periventricular, pericallosal, subcortical hyperintensity present on inversion recovery T2-weighted sequences. Corpus callosum, pit uitary, cervical measurement junction, cerebellopontine angles are unremarkable. Some focal encephalo malacia is present in the manjeet on the left. There are normal vascular flow voids. There is no hemorrh age or hydrocephalus. Orbits show symmetric appearance. Paranasal sinuses and mastoid air cells are w ell aerated. There is cortical atrophy. IMPRESSION: Subacute infarct. Evidence of chronic small vessel ischemia.
[2019-10-07] MEDS ORDERED: INSULIN PUMP BASAL RATES 1 EACH MISC MISCELLANE PRN (14:51)
[2019-10-07] MEDS ORDERED: INSPUCOR MISCELLANE PRN (14:51)
[2019-10-07] MEDS ORDERED: INSULIN PUMP TARGET GLUCOSE 1 EACH MISC MISCELLANE PRN (14:51)
[2019-10-07] MEDS ORDERED: INSULIN ASPART (NovoLOG) 100 UNIT/ML VIAL SQ PRN (14:51)
[2019-10-07] MEDS ORDERED: INSULIN PUMP ACTIVE INSULIN 1 EACH MISC MISCELLANE PRN (14:51)
--- NOTE | 2019-10-07 14:52 | US ---
EXAMINATION TYPE: US carotid duplex BILAT DATE OF EXAM: 10/07/2019 COMPARISON: NONE CLINICAL HISTORY: Stenosis. TIA EXAM MEASUREMENTS: RIGHT: Peak Systolic Velocity (PSV) cm/sec ----- Right CCA: 69.7 ----- Right ICA: 79.8 ----- Right ECA: 98.7 ICA/CCA ratio: 1.1 RIGHT: End Diastole cm/sec ----- Right CCA: 14.4 ----- Right ICA: 26.0 ----- Right ECA: 7.1 LEFT: Peak Systolic Velocity (PSV) cm/sec ----- Left CCA: 63.8 ----- Left ICA: 58.0 ----- Left ECA: 85.6 ICA/CCA ratio: 0.9 LEFT: End Diastole cm/sec ----- Left CCA: 11.5 ----- Left ICA: 18.8 ----- Left ECA: 14.4 VERTEBRALS (direction of flow): Right Vertebral: Antegrade Left Vertebral: Antegrade Rhythm: Normal No significant stenosis seen IMPRESSION: No evidence for hemodynamically significant stenosis. Criteria for Assigning % of Stenosis / Diameter reduction (Estimation based on the indirect measurements of the internal carotid artery velocities (ICA PSV). 1. Normal (no stenosis)=ICA PSV < 125 cm/s: ratio < 2.0: ICA EDV<40 cm/s. 2. Less than 50% stenosis=ICA PSV < 125 cm/s: ratio < 2.0: ICA EDV<40 cm/s. 3. 50 to 69% stenosis=ICA PSV of 125 to 230 cm/s: ration 2.0 ? 4.0: ICA EDV 40-100 cm/s. 4. Greater than 70% stenosis to near occlusion= ICA PSV > 230 cm/s: ratio > 4.0: ICA EDV > 100 cm/s. 5. Near occlusion= ICA PSV velocities may be low or undetectable: variable ratio and ICA EDV. 6. Total occlusion=unable to detect flow.
--- NOTE | 2019-10-07 14:52 | CONS ---
CONSULTATION Mr. Olson is a 54-year-old male who is visiting from [place], has a history of pancreatic and renal transplant but apparently his pancreas is not working, who presented with slurred speech and numbness and weakness on the left side. Cardiology consultation was requested because of mild elevation of the troponin. The patient denies any prior history of obstructive coronary artery disease. Apparently, he had pericardial effusion in the past with strain, but he had no evidence of obstructive coronary artery disease. According to him, he has no significant chest discomfort. His breathing has been stable. No dizziness. No palpitation. He has chronic peripheral edema unchanged. He has no history of PND or orthopnea. His coronary risk factors are positive for chronic tobacco user, diabetes and hyperlipidemia and hypertension. MEDICATIONS: Include Coreg 25 mg twice a day, CellCept, [place], Neurontin, Apresoline 50 mg 3 times a day, sodium bicarb, Percocet, losartan 25 mg daily, Reglan, Prograf, Lipitor 20 mg daily, prednisone, Cialis, and insulin. REVIEW OF SYSTEMS: RESPIRATORY SYSTEM: He has dyspnea on exertion. No recent wheezing or cough. GI SYSTEM: No recent GI bleed. No peptic ulcer disease. SYSTEM: No dysuria, hematuria. NERVOUS SYSTEM: No prior history of stroke or seizure. He feels that his numbness and weakness have improved. PHYSICAL EXAMINATION: He is a 54-year-old male, alert, oriented, in no apparent distress. Blood pressure running in the 150s with a diastolic of 100. Heart rate in the 60s. HEAD: Normocephalic. EYES: Sclerae nonicteric NECK: Good upstroke, no bruit. LUNGS: Clear to auscultation. HEART: Regular rate and rhythm, S1, S2. No S3 with a systolic murmur 2/6 heard at the base. No diastolic murmur no rub. ABDOMEN: Soft, nontender. Positive bowel sounds, no organomegaly. EXTREMITIES: +1 edema, intact pulses. LAB DATA: Revealed a BUN and creatinine of 51 and 2.05. Troponin 0.036 and 0.039. Cholesterol 133, LDL of 76, potassium 4.9, hemoglobin of 11.5. Echocardiogram revealed a preserved left ventricular size systolic function with no significant valvular disease. EKG revealed a sinus mechanism with evidence of limb fibers in and nonspecific ST-T wave changes. The brain MRI shows evidence of subacute infarct and evidence of chronic small-vessel disease. IMPRESSION: 1. Evidence to suggestive cerebrovascular accident with slurred speech and numbness and weakness on the left side with recovery. 2. Mild troponin elevation with no evidence of acute coronary artery syndrome, could be related to his chronic kidney disease. Patient has a high risk of having obstructive lung disease in view of multiple risk factors we had no clear symptoms. 3. Status post pancreatic and renal transplant. 4. History of hypertension. 5. Hyperlipidemia. 6. Diabetes mellitus. 7. Chronic tobacco use. RECOMMENDATION: From the cardiac standpoint, I will increase the dose of his hydralazine in view of his elevated blood pressure. Continue with his medical regimen. I discussed with the patient smoking cessation. I have discussed with him the importance of followup with a dragline engineer when he gets back in [place] and he may benefit from a nuclear scan that can be done as an outpatient. Thank you for this consult. Will follow with you. EVELIN / ION: [id number] /
[2019-10-07] MEDS: hydrALAZINE HCL 50 MG TAB PO SCH ×2 (16:26→21:03)
[2019-10-07 16:43] LABS: Glucose,Whole Blood 99 mg/dL (75-99)
[2019-10-07] MEDS: INSULIN PUMP MEAL BOLUS 1 UNIT MISC MISCELLANE SCH (17:30)
[2019-10-07 18:50] LABS: Hemoglobin A1C 11.1 % (4.0-6.0)
[2019-10-07] MEDS: FAMOTIDINE 20 MG/2 ML VIAL IV SCH (20:47)
[2019-10-07] MEDS: HEPARIN SODIUM,PORCINE 5,000 UNIT/ML 1 ML VIAL SQ SCH (20:50)
[2019-10-07 20:53] LABS: Glucose,Whole Blood 145 mg/dL (75-99)
[2019-10-07] MEDS ORDERED: ATORVASTATIN 20 MG TAB PO SCH (21:00)
[2019-10-07] MEDS ORDERED: ATORVASTATIN 40 MG TAB PO SCH (21:00)
[2019-10-07] MEDS ORDERED: ASPIRIN 325 MG TAB PO SCH (21:00)
[2019-10-08] MEDS: SODIUM CHLORIDE 0.9% 1,000 ML IV SCH (02:28)
[2019-10-08 05:46] LABS: HCT 34.7 % (39.0-53.0); MCH 29.2 pg (25.0-35.0); MCHC 31.8 g/dL (31.0-37.0); MCV 92.1 fL (80.0-100.0); Mean Platelet Volume 6.8; Platelet Count 170 k/uL (150-450); RBC 3.77 m/uL (4.30-5.90); RDW 13.8 % (11.5-15.5); WBC 6.2 k/uL (3.8-10.6)
[2019-10-08 05:56] LABS: Potassium 5.6 mmol/L (3.5-5.1)
[2019-10-08 05:57] LABS: Albumin 2.9 g/dL (3.5-5.0); Calcium 8.5 mg/dL (8.4-10.2); Total Bilirubin 0.5 mg/dL (0.2-1.3); Total Protein 5.3 g/dL (6.3-8.2)
[2019-10-08 06:57] LABS: Glucose,Whole Blood 386 mg/dL (75-99)
[2019-10-08] MEDS: INSULIN PUMP MEAL BOLUS 1 UNIT MISC MISCELLANE SCH ×3 (07:30→11:54)
--- NOTE | 2019-10-08 07:41 | PN ---
PROGRESS NOTE Mr. Olson is a 54-year-old male status post pancreatic and renal transplant who presented with left arm weakness and numbness with slurred speech. His symptoms have resolved. He is feeling well today. He denies any chest pain. He is breathing stable. He denies any dizziness, palpitation. He denies any nausea. He continues to be at this time on aspirin 81 mg daily, Lipitor 40 mg daily, carvedilol 25 mg twice a day, Plavix 75 mg daily, hydralazine 75 mg 3 times a day, losartan 25 mg daily, prednisone 5 mg daily, Prograf. PHYSICAL EXAMINATION: Blood pressure running in the 150s with a heart rate in the 70s. LUNGS: Clear. HEART: Regular rate and rhythm, S1, S2. No S3. No rub appreciated. ABDOMEN: Soft, nontender. EXTREMITIES: No edema. LAB DATA: Revealed BUN and creatinine 35 and 1.7, potassium 5.6, hemoglobin of 11. His carotid duplex scan revealed no evidence of significant obstructive carotid disease. IMPRESSION: 1. Evidence of neurological event with left arm weakness and numbness. 2. Mild troponin elevation with no evidence for acute coronary syndrome in a patient with multiple risk factors. 3. Status post pancreatic and renal transplant. 4. Hypertension. 5. Hyperlipidemia. 6. Diabetes mellitus. 7. Chronic tobacco use. RECOMMENDATION: I have discussed with the patient the need for smoking cessation. I will add to his regimen isosorbide mononitrate 60 mg daily to optimize his blood pressure control with a combination with hydralazine. I would expect he should be able to be discharged home soon and he is fine to return to [place] and we encouraged him to see a curriculum and assessment director in [place]. Patient will benefit from a further evaluation for his chronic effusion. MMODL / IJN: [id number] /
[2019-10-08] MEDS: CARVEDILOL 12.5 MG TAB PO SCH (07:51)
[2019-10-08] MEDS: CLOPIDOGREL 75 MG TAB PO SCH (07:52)
[2019-10-08] MEDS: ASPIRIN 81 MG PO SCH (07:52)
[2019-10-08] MEDS: FAMOTIDINE 20 MG/2 ML VIAL IV SCH (07:53)
[2019-10-08] MEDS: GABAPENTIN 300 MG CAP PO SCH (07:53)
[2019-10-08] MEDS: hydrALAZINE HCL 50 MG TAB PO SCH (07:53)
[2019-10-08] MEDS: LOSARTAN 25 MG TAB PO SCH (07:56)
[2019-10-08] MEDS: HEPARIN SODIUM,PORCINE 5,000 UNIT/ML 1 ML VIAL SQ SCH (07:57)
[2019-10-08] MEDS: MYCOPHENOLATE MOFETIL 500 MG TAB PO SCH (07:58)
[2019-10-08] MEDS: predniSONE 5 MG TAB PO SCH (07:58)
[2019-10-08] MEDS: SODIUM BICARBONATE TAB 650 MG TAB PO SCH ×2 (07:58→12:29)
[2019-10-08] MEDS: TACROLIMUS 1 MG CAP PO SCH (07:59)
[2019-10-08] MEDS ORDERED: ASPIRIN 81 MG PO SCH (09:00)
[2019-10-08] MEDS ORDERED: ISOSORBIDE MONONITRATE ER 30 MG TAB.ER.24H PO SCH (09:00)
[2019-10-08 09:06] VITALS: RESP 16
[2019-10-08 09:58] VITALS: BMI 28.0
[2019-10-08 10:25] LABS: Glucose,Whole Blood 73 mg/dL (75-99)
--- NOTE | 2019-10-08 10:56 | P.NPCON ---
History of Present Illness - Reason for Consult acute renal failure - History of Present Illness Reason for consultation: Chronic kidney disease and renal transplant management History of present illness: Patient is a 54-year-old male seen in renal consultation for chronic kidney disease and renal transplant management. Patient presented to the hospital on October 06 due to difficulty with his speech and generalized weakness. There was concern for stroke. Patient's brain CT was negative. However brain MRI revealed subacute infarct. He is being followed by neurology. Patient underwent simultaneous kidney and pancreatic transplant in 2012 in [place]. Patient states his pancreatic transplant failed and is currently on an insulin pump for diabetes. He denies any rejection episodes in his renal allograft. Patient states his baseline creatinine is near 2. Patient lives in [place] and is visiting here for the month of September. He denies chest pain or shortness of breath. Oral intake is good. Urine output is good. No hematuria or dysuria. Denies use of nonsteroidals. Hemodynamically stable. Blood sugars are in the 300s. Potassium was also slightly elevated. Vital signs are stable. General: The patient appeared well nourished and normally developed. HEENT: Head exam is unremarkable. Neck is without jugular venous distension. LUNGS: Lungs are clear to auscultation and percussion. Breath sounds decreased. HEART: Rate and Rhythm are regular. First and second heart sounds normal. No murmurs, rubs or gallops. ABDOMEN: Abdominal exam reveals normal bowel sounds. Non-tender and non- distended. No evidence of peritonitis. EXTREMITITES: No clubbing, cyanosis, or edema. Past Medical History Past Medical History: Dialysis, Hyperlipidemia, Renal Disease Additional Past Medical History / Comment(s): pancreatitis, last dialysis 2012, hernia, History of Any Multi-Drug Resistant Organisms: None Reported Additional Past Surgical History / Comment(s): kidney and pancreases transplant 2012, lt arm fistul which has been reserved june 2019 Past Anesthesia/Blood Transfusion Reactions: No Reported Reaction Past Psychological History: Depression Smoking Status: Current every day smoker Past Alcohol Use History: Rare Past Drug Use History: None Reported Medications and Allergies Home Medications Medication Instructions Recorded Confirmed Type Acetaminophen Tab [Tylenol Tab] 1,000 mg PO Q6HR PRN 10/06/19 10/06/19 History Atorvastatin [Lipitor] 20 mg PO HS 10/06/19 10/06/19 History Carvedilol 25 mg PO BID 10/06/19 10/06/19 History Gabapentin [Neurontin] 300 mg PO TID 10/06/19 10/06/19 History Hydrocodone/Acetaminophen [[place] 1 tab PO Q4H PRN 10/06/19 10/06/19 History 5-325] Insulin Aspart (For Pump) [NovoLOG 0.01 unit SQ-PUMP CONTINUOUS 10/06/19 10/06/19 History (For Pump)] Loratadine 10 mg PO DAILY PRN 10/06/19 10/06/19 History Losartan [Cozaar] 25 mg PO DAILY 10/06/19 10/06/19 History Metoclopramide [Reglan] 5 mg PO TID PRN 10/06/19 10/06/19 History Mycophenolate Mofetil [Cellcept] 1,000 mg PO BID 10/06/19 10/06/19 History Omeprazole 40 mg PO DAILY 10/06/19 10/06/19 History Simethicone [Gas-X] 125 mg PO QID PRN 10/06/19 10/06/19 History Sodium Bicarbonate Tab 650 mg PO QID 10/06/19 10/06/19 History Tacrolimus [Prograf] 2 mg PO BID 10/06/19 10/06/19 History Tadalafil [Cialis] 5 mg PO DAILY PRN 10/06/19 10/06/19 History hydrALAZINE HCL [Apresoline] 50 mg PO TID 10/06/19 10/06/19 History oxyCODONE-APAP 5-325MG [Percocet 1 tab PO Q4HR PRN 10/06/19 10/06/19 History 5-325 mg] predniSONE 5 mg PO DAILY 10/06/19 10/06/19 History Allergies Allergy/AdvReac Type Severity Reaction Status Date / Time No Known Drug Allergies Allergy Unknown Verified 10/07/19 12:31 Physical Exam Vitals: Vital Signs Temp Pulse Resp BP Pulse Ox 10/08/19 08:00 97.1 F L 76 16 146/83 95 10/08/19 06:30 71 18 10/08/19 06:00 67 26 H 10/08/19 05:30 80 23 10/08/19 05:00 70 31 H 10/08/19 04:30 70 19 163/82 10/08/19 04:00 76 19 10/08/19 03:30 72 18 10/08/19 03:00 70 20 156/77 10/08/19 02:30 82 20 156/77 10/08/19 02:00 82 13 156/77 10/08/19 01:30 66 19 156/77 10/08/19 01:00 66 18 10/08/19 00:30 98.1 F 66 17 156/77 10/08/19 00:00 65 19 10/07/19 23:30 66 19 10/07/19 23:00 66 15 10/07/19 22:30 68 18 10/07/19 22:05 71 20 162/90 10/07/19 22:00 72 18 10/07/19 21:30 67 8 L 10/07/19 21:00 97.8 F 74 17 162/90 10/07/19 20:30 72 15 10/07/19 20:00 69 19 10/07/19 16:00 97.9 F 80 14 156/82 96 10/07/19 13:45 72 18 171/91 10/07/19 13:30 75 27 H 171/91 96 10/07/19 13:15 82 158/106 96 10/07/19 12:00 68 22 158/106 96 Intake and Output 10/07/19 10/08/19 10/08/19 22:59 06:59 14:59 Intake Total 700 150 Output Total 1350 775 350 Balance -650 -625 -350 Intake: IV 200 150 Sodium Chloride 0.9% 1, 200 150 000 ml @ 75 mls/hr IV . [id number] [facility] Rx#:[id number] Oral 500 Output: Urine 1350 500 350 Post Void Residual 275 Other: Voiding Method Urinal Urinal Urinal # Voids 1 Weight 83.5 kg 83.5 kg Results - Lab Results Most recent lab results Calcium 8.5 mg/dL (8.4-10.2) 10/08/19 05:19 10/08/19 05:16 10/08/19 05:19 Assessment and Plan Plan: Assessment: 1. Mild acute allograft dysfunction mostly prerenal improved with IV hydration. Creatinine 1.75 today. 2. Chronic kidney disease stage III with baseline creatinine near 2 per the patient. He follows with transplant team in [place]. 3. Status post simultaneous kidney and pancreatic transplant in 2012. 4. Subacute CVA. Maintained on aspirin and Plavix. Neurology following. 5. Insulin-dependent diabetes mellitus. Patient has an insulin pump. 6. Hypertension with chronic kidney disease. 7. Mild hyperkalemia secondary to hyperglycemia. 8. Metabolic acidosis hyperchloremic, secondary to IV fluids. Maintained on oral sodium bicarbonate. Plan: Hep-Lock IV fluids. Tight blood sugar control. Repeat potassium level receiving. Maintain home antirejection medications. Continue to monitor renal function and urine output. Increase hydralazine 200 mg 3 times daily. Thank you for the consultation. I will continue to follow patient with you during his hospital stay.
[2019-10-08 11:38] LABS: Glucose,Whole Blood 77 mg/dL (75-99)
[2019-10-08 12:07] VITALS: BP 118/82; PULSE 72; TEMP 97.6
--- NOTE | 2019-10-08 13:34 | P.PN ---
Progress Note - Text Progress Note Date: 10/08/19 SUBJECTIVE/INTERVAL EVENTS: No acute overnight events. Denies any headache, nausea, vomiting, worsening/new weakness, numbness or tingling, dizziness. Patient states that he basically has gotten used to the L-sided symptoms. No complaints. Discussed with patient again in depth about his diabetes control and need to quit smoking. PHYSICAL EXAMINATION: VITAL SIGNS: T 97.1 HR 76 RR 16 BP 146/83 O2 sat 95% on RA GEN.: NAD, pleasant and cooperative HEENT: NCAT, sclera without icterus NECK: Supple, no carotid bruit SKIN AND EXTREMITIES: Warm to touch, no edema NEURO: MENTAL STATUS: Patient alert and oriented to self, place, time. Able to name the current president. Speech fluent, able to name and repeat, following all commands readily. Mild dysarthria. No right and left disorientation, neglect. CRANIAL NERVES II THROUGH XII: II: Pupils are equal and reactive to light symmetrically. No afferent pupillary defect. Visual gonzalez are intact. III, IV, : No ptosis. Extraocular movements full. No nystagmus. V: Facial sensation intact from V1-3. VII. mild L nasolabial fold flattening VIII: Hearing intact to finger rub bilaterally. IX, X: Symmetric palate elevation. XI: Shoulder shrug intact. XII: Tongue midline without fasciculation or atrophy. MOTOR: Normal bulk/tone. + LUE pronator drift. No tremor. LUE proximal strength 4/5, biceps triceps 4+5, finger farm management professor 4+/5. LLE hip flexion 4+/5, knee flexion/extension 4/5, plantarflexion/dorsiflexion 5/5. RUE/RLE 5/5 strength. SENSORY: Decreased to light touch, temperature in LUE and LLE. Romberg is negative. REFLEXES: 2+ throughout. Toes are downgoing. COORDINATION: Finger to nose intact. No dysmetria. GAIT: Narrow-based and stable. Able to toe/heel/tandem walk DIAGNOSTIC TESTING: LABORATORY: WBC 8.7 hemoglobin 12.5 platelets 12/23/2017 and 0.6 INR 1.9 sodium 139 potassium 5.6 chloride 108 bicarb 23 BUN 51 creatinine 2.05 glucose 160 AST 17 ALT 17 alk phos 124 troponin 0.036 lipase 28 urinalysis 1+ protein TSH 2.860 Total Cholesterol 133 LDL 76 HDL 32 TG 127 A1C 11.1 IMAGING: MRI brain without contrast 10/07/2019: Subacute infarct in the right manjeet. Evidence of chronic small vessel ischemia. CT head without contrast 10/06/2019: Cerebral atrophy. No acute intracranial abnormality. Carotid Doppler bilateral 10/07/2019: No evidence for hemodynamically significant stenosis. TTE 10/07/2019: Sinus rhythm. LA, RA, RV, LV sizes are normal. EF 55-60%. EKG: Normal SR. Cardiac monitoring: no atrial arrhythmia since admission ASSESSMENT: 54-year-old R-handed man with past medical history of pancreatitis and renal disease (from diabetes per patient), s/p kidney and pancreas transplant, diabetes, who presents with Dana Hagerman for having speech difficulty and left arm weakness. Patient's NIH stroke scale today is a 4. Patient with dysarthria, LUE/LLE weakness and numbness. Most likely etiology small vessel disease. Risk factors include diabetes and current smoking status. MRI brain without contrast showing a subacute infarct in the right manjeet. RECOMMENDATIONS: 1. ASA 81mg qday and Plavix 75mg qday (dual antiplatelet therapy for 3 weeks per POINT trial, then Plavix 75mg qday only as patient had been taking ASA previously) 2. c/w Atorvastatin 40mg qhs 3. PT/OT/ST per protocol 4. Discussed with patient about stroke prevention guidelines. Medication compliance, hypertension/diabetes control, lifestyle changes including no smo gus, drinking in moderation, losing weight, exercising, eating healthier 5. Neurology will sign off at this time. Please feel free to contact Neurology again if with additional questions or concerns. 6. Patient needs to follow up with neurologist as outpatient with her 1-2 weeks of discharge
[2019-10-08] MEDS ORDERED: hydrALAZINE HCL 50 MG TAB PO SCH (16:00)
--- NOTE | 2019-10-08 23:11 | DS ---
DISCHARGE SUMMARY DATE OF SERVICE: 10/08/2019 FINAL DIAGNOSES: 1. Acute left-sided stroke caused by right hemispheric lesion. 2. Elevated troponin. 3. Status post kidney and pancreatic transplant since 2012. 4. Chronic kidney disease, stage III. 5. Transplant kidney disease. 6. Anemia, normocytic; anemia of chronic disease. 7. Mild hyperkalemia. 8. Hyponatremia. 9. NO CODE, NO CPR, NO VENT. DISCHARGE DISPOSITION: The patient will be discharged in stable condition with guarded prognosis. Total time taken 35 minutes. Patient is extremely keen on going home. Discharge cleared by multiple consultants on the case. HISTORY OF PRESENT ILLNESS: This 54-year-old gentleman with past medical history of multiple medical problems was admitted with weakness on the left side and right subcortical subacute infarct was considered. The patient was seen by Neurology, Cardiology and nephrology. The patient improved significantly. A brain MRI was done which showed a subacute infarct, evidence of chronic small ischemia, also. The patient is extremely keen on going home at this time. The patient will be discharged by multiple consultants. Please refer to the consultation notes and progress notes for further details. So the patient will be discharged in a stable condition with guarded prognosis. Other neurovascular workup was basically negative. On exam, vitals are stable. CARDIOVASCULAR SYSTEM: S1, S2 muffled. ABDOMEN: Soft. NERVOUS SYSTEM: Minimal weakness on the left side. The patient is able to ambulate without support. DISCHARGE ADVICE AND MEDICATIONS: 1. Diet is cardiac. 2. Activity limited until followup. 3. Follow up with Dr. Gomez, primary physician, in 2-3 days. 4. Follow up with Dr. Hyde in one week. 5. Coreg 25 mg p.o. b.i.d. 6. CellCept 1000 mg p.o. b.i.d. 7. Cialis 5 mg p.r.n. 8. Cozaar 25 mg p.o. daily. 9. Gas-X 120 mg q.i.d. p.r.n. 10.Neurontin 300 mg p.o. t.i.d. 11.[place] 5 mg q.4 p.r.n. 12.NovoLog insulin pump. 13.Omeprazole 40 mg p.o. daily. 14.Percocet 5 mg q.4 p.r.n. 15.Prednisone 5 mg p.o. daily. 16.Prograf 2 mg p.o. b.i.d. 17.Reglan 5 mg p.o. t.i.d. p.r.n. 18.Sodium bicarb 650 mg p.o. q.i.d. 19.Tylenol 1000 mg q.6 p.r.n. 20.Apresoline 100 mg p.o. t.i.d. 21.Aspirin 81 mg p.o. daily. 22.Imdur 30 mg p.o. daily. 23.Lipitor 40 mg at bedtime. 24.Plavix 75 mg p.o. daily. 25.Follow up with Nephrology as recommended. Once again, the patient will be discharged in stable condition with guarded prognosis. MMODL / IJN: [id number] /
[2019-10-09] MEDS ORDERED: FAMOTIDINE 20 MG TAB PO SCH (09:00)
== END 2019-10-08 16:02 | disposition home or self-care (01) | DRG 65 ==
LOC: EC 18:04 → 2SICU 21:45
PROVIDERS: ADMIT Hospitalist; ATTEND Hospitalist
DX: I63.89 Other cerebral infarction (principal); G81.94 Hemiplegia, unspecified affecting left nondominant side; Z94.0 Kidney transplant status; T86.891 Other transplanted tissue failure; N17.9 Acute kidney failure, unspecified; E87.2 Acidosis; E87.1 Hypo-osmolality and hyponatremia; E11.22 Type 2 diabetes mellitus with diabetic chronic kidney disease; N18.3 Chronic kidney disease, stage 3 (moderate); E11.51 Type 2 diabetes mellitus with diabetic peripheral angiopathy without gangrene; E87.8 Other disorders of electrolyte and fluid balance, not elsewhere classified; R47.01 Aphasia; E11.65 Type 2 diabetes mellitus with hyperglycemia; E87.5 Hyperkalemia; Z66 Do not resuscitate; I12.9 Hypertensive chronic kidney disease with stage 1 through stage 4 chronic kidney disease, or unspecified chronic kidney disease; R47.1 Dysarthria and anarthria; R40.2363 Coma scale, best motor response, obeys commands, at hospital admission; R40.2143 Coma scale, eyes open, spontaneous, at hospital admission; R40.2253 Coma scale, best verbal response, oriented, at hospital admission; R29.703 NIHSS score 3; D63.1 Anemia in chronic kidney disease; F32.9 Major depressive disorder, single episode, unspecified; E78.5 Hyperlipidemia, unspecified; R79.89 Other specified abnormal findings of blood chemistry; F17.200 Nicotine dependence, unspecified, uncomplicated; Z71.6 Tobacco abuse counseling; Z79.4 Long term (current) use of insulin; Z79.52 Long term (current) use of systemic steroids; Z79.899 Other long term (current) drug therapy; Z96.41 Presence of insulin pump (external) (internal); Z87.19 Personal history of other diseases of the digestive system; Z86.79 Personal history of other diseases of the circulatory system; Z88.1 Allergy status to other antibiotic agents; W00.0XXA Fall on same level due to ice and snow, initial encounter; Y92.73 Farm field as the place of occurrence of the external cause; Y83.0 Surgical operation with transplant of whole organ as the cause of abnormal reaction of the patient, or of later complication, without mention of misadventure at the time of the procedure
CPT/HCPCS: 36415; 70450; 70551; 71046; 80048; 80053; 80061; 81001; 83036; 83690; 84132; 84443; 84484; 85025; 85027; 85610; 85730; 93005; 93306; 93880; 96360; 96361; 99285

== ENCOUNTER 2023-09-03 10:13 | Inpatient (IN) | payer MEDICARE ==
--- NOTE | 2023-09-03 11:06 | ED ---
General Adult HPI - General Chief complaint: Recheck/Abnormal Lab/Rx Stated complaint: hernia pain Time Seen by Provider: 09/03/23 10:37 Source: patient Mode of arrival: ambulatory Limitations: no limitations - History of Present Illness Initial comments: 58-year-old male with a past medical history significant for coronary artery disease and status post pancreas and kidney transplant presents to the ED with a chief complaint of leg swelling. Patient states for the past week has had swelling of his bilateral lower extremity up to his abdomen. Additionally notes increased dyspnea. Denies chest, shortness of breath. No abdominal pain. No changes in bowel or bladder habits. No other complaints. - Related Data Home Medications Medication Instructions Recorded Confirmed Acetaminophen Tab [Tylenol] 1,000 mg PO Q6HR PRN 10/06/19 10/06/19 Gabapentin [Neurontin] 300 mg PO TID 10/06/19 10/06/19 Hydrocodone/Acetaminophen [[place] 1 tab PO Q4H PRN 10/06/19 10/06/19 5-325] Insulin Aspart (For Pump) [NovoLOG 0.01 unit SQ-PUMP CONTINUOUS 10/06/19 10/06/19 (For Pump)] Loratadine 10 mg PO DAILY PRN 10/06/19 10/06/19 Losartan [Cozaar] 25 mg PO DAILY 10/06/19 10/06/19 Metoclopramide [Reglan] 5 mg PO TID PRN 10/06/19 10/06/19 Omeprazole 40 mg PO DAILY 10/06/19 10/06/19 Simethicone [Gas-X] 125 mg PO QID PRN 10/06/19 10/06/19 Sodium Bicarbonate Tab 650 mg PO QID 10/06/19 10/06/19 Tacrolimus [Prograf] 2 mg PO BID 10/06/19 10/06/19 carvediloL 25 mg PO BID 10/06/19 10/06/19 mycophenolate mofetiL [Cellcept] 1,000 mg PO BID 10/06/19 10/06/19 oxyCODONE-APAP 5-325MG [Percocet 1 tab PO Q4HR PRN 10/06/19 10/06/19 5-325 mg] predniSONE 5 mg PO DAILY 10/06/19 10/06/19 tadalafiL [Cialis] 5 mg PO DAILY PRN 10/06/19 10/06/19 Previous Rx's Medication Instructions Recorded Aspirin 81 mg PO DAILY #30 chew 10/08/19 Atorvastatin [Lipitor] 40 mg PO HS #30 tab 10/08/19 Clopidogrel [Plavix] 75 mg PO DAILY #30 tab 10/08/19 Insulin Aspart (For Pump) [NovoLOG 0.01 unit SQ-PUMP CONTINUOUS #1 10/08/19 (For Pump)] vial Isosorbide Mononitrate ER [Imdur] 30 mg PO DAILY #30 tab.er.24h 10/08/19 hydrALAZINE HCL [Apresoline] 100 mg PO TID #30 tab 10/08/19 Allergies Allergy/AdvReac Type Severity Reaction Status Date / Time No Known Drug Allergies Allergy Unknown Verified 09/03/23 10:32 Review of Systems ROS Statement: Those systems with pertinent positive or pertinent negative responses have been documented in the HPI. ROS Other: All systems not noted in ROS Statement are negative. Past Medical History Past Medical History: Dialysis, Hyperlipidemia, Renal Disease Additional Past Medical History / Comment(s): pancreatitis, last dialysis 2012, hernia, History of Any Multi-Drug Resistant Organisms: None Reported Additional Past Surgical History / Comment(s): kidney and pancreases transplant 2012, lt arm fistul which has been reserved june 2019 Past Anesthesia/Blood Transfusion Reactions: No Reported Reaction Past Psychological History: Depression Smoking Status: Current every day smoker Past Alcohol Use History: Occasional Past Drug Use History: None Reported General Exam Limitations: no limitations General appearance: alert, in no apparent distress ENT exam: Present: mucous membranes moist Respiratory exam: Present: rhonchi (Right ) GI/Abdominal exam: Present: soft Extremities exam: Present: other (2+ pitting edema bilaterally. Tenderness to palpation. Negative Homans sign.) Neurological exam: Present: alert, oriented X3 Skin exam: Present: warm, dry Course Vital Signs 09/03/23 10:30 Temperature 98.4 F Pulse Rate 70 Respiratory 24 Rate Blood Pressure 142/78 O2 Sat by Pulse 92 L Oximetry Medical Decision Making - Medical Decision Making Was pt. sent in by a medical professional or institution (, PA, STEAM ROLLER OPERATOR, urgent care, hospital, or halfway...) When possible be specific @ -No Did you speak to anyone other than the patient for history (EMS, parent, family, police, friend...)? What history was obtained from this source @ -No Did you review nursing and triage notes (agree or disagree)? Why? @ -I reviewed and agree with nursing and triage notes Were old charts reviewed (outside hosp., previous admission, EMS record, old EKG, old radiological studies, urgent care reports/EKG's, halfway records)? Report findings @ -No old charts were reviewed Differential Diagnosis (chest pain, altered mental status, abdominal pain women, abdominal pain men, vaginal bleeding, weakness, fever, dyspnea, syncope, headache, dizziness, GI bleed, back pain, seizure, CVA, palpatations, mental health, musculoskeletal)? @ -Differential Dyspnea: Coronary syndrome, arrhythmia, tamponade, asthma, COPD, pulmonary embolism, pneumonia, pneumothorax, pulmonary effusion, anaphylaxis, diabetic ketoacidosis, flailed chest, pulmonary contusion, diaphragmatic rupture, anemia, neuromuscular, this is not meant to be an all-inclusive list. EKG interpreted by me (3pts min.). @ -As above X-rays interpreted by me (1pt min.). @ -Chest x-ray interpreted by me showing bilateral pleural effusions. CT interpreted by me (1pt min.). @ -None done U/S interpreted by me (1pt. min.). @ -Doppler ultrasound by me showing no evidence of DVT. What testing was considered but not performed or refused? (CT, X-rays, U/S, labs)? Why? @ -None What meds were considered but not given or refused? Why? @ -None Did you discuss the management of the patient with other professionals (professionals i.e. , PA, STEAM ROLLER OPERATOR, lab, RT, psych nurse, sr. social media & mobile manager, river pilot, teacher, investment officer, adult protective caseworker)? Give summary @ -Case discussed with Dr. Hugo, who accepts admission Was smoking cessation discussed for >3mins.? @ -No Was critical care preformed (if so, how long)? @ -No Were there social determinants of health that impacted care today? How? (Homelessness, low income, unemployed, alcoholism, drug addiction, transportat ion, low edu. Level, literacy, decrease access to med. care, detention, rehab)? @ -No Was there de-escalation of care discussed even if they declined (Discuss DNR or withdrawal of care, Hospice)? DNR status @ -No What co-morbidities impacted this encounter? (DM, HTN, Smoking, COPD, CAD, Cancer, CVA, ARF, Chemo, Hep., AIDS, mental health diagnosis, sleep apnea, morbid obesity)? @ -Renal transplant Was patient admitted / discharged? Hospital course, mention meds given and route, prescriptions, significant lab abnormalities, going to OR and other pertinent info. @ -Admission 68-year-old male presents to the ED with complaints of bilateral lower extremity edema and dyspnea. Chest x-ray did show bilateral pleural effusion. Laboratory studies significant for an elevated potassium of 6.5, BUN of 94, creatinine of 4.02, BNP of 64,900. Hyperkalemia treatment initiated here in the ED. Patient will be admitted with consults to nephrology and cardiology. Plan of care discussed with patient and family who are in agreement. Undiagnosed new problem with uncertain prognosis? @ -No Drug Therapy requiring intensive monitoring for toxicity (Heparin, Nitro, Insulin, Cardizem)? @ -No Were any procedures done? @ -No Diagnosis/symptom? @ -Congestive heart failure, acute kidney injury Acute, or Chronic, or Acute on Chronic? @ -Acute on chronic Uncomplicated (without systemic symptoms) or Complicated (systemic symptoms)? @ -Complicated Side effects of treatment? @ -No Exacerbation, Progression, or Severe Exacerbation? @ -Exacerbation Poses a threat to life or bodily function? How? (Chest pain, [place], [place], pneumonia, PE, COPD, DKA, ARF, appy, cholecystitis, CVA, Diverticulitis, Homicidal, Suicidal, threat to staff... and all critical care pts) @ -Yes, hyperkalemia - Lab Data Result diagrams: 09/03/23 11:32 09/03/23 11:32 Lab Results 09/03/23 09/03/23 09/03/23 Range/Units 11:32 11:32 11:32 WBC 5.7 (3.8-10.6) k/uL RBC 2.61 L (4.30-5.90) m/uL Hgb 8.0 L (13.0-17.5) gm/dL Hct 26.7 L (39.0-53.0) % MCV 102.0 H (80.0-100.0) fL MCH 30.7 (25.0-35.0) pg MCHC 30.1 L (31.0-37.0) g/dL RDW 14.8 (11.5-15.5) % Plt Count 169 (150-450) k/uL MPV 8.8 Neutrophils % 82 % Lymphocytes % 9 % Monocytes % 6 % Eosinophils % 1 % Basophils % 0 % Neutrophils # 4.7 (1.3-7.7) k/uL Lymphocytes # 0.5 L (1.0-4.8) k/uL Monocytes # 0.4 (0-1.0) k/uL Eosinophils # 0.1 (0-0.7) k/uL Basophils # 0.0 (0-0.2) k/uL Hypochromasia Marked Macrocytosis Slight PT 11.5 (10.0-12.5) sec INR 1.1 (<1.2) APTT 23.4 (22.0-30.0) sec Sodium 138 (137-145) mmol/L Potassium 6.5 H* (3.5-5.1) mmol/L Chloride 112 H (98-107) mmol/L Carbon Dioxide 16 L (22-30) mmol/L Anion Gap 10 mmol/L BUN 94 H (9-20) mg/dL Creatinine 4.02 H (0.66-1.25) mg/dL Est GFR (CKD-EPI)AfAm 18 (>60 ml/min/1.73 sqM) Est GFR (CKD-EPI)NonAf 16 (>60 ml/min/1.73 sqM) Glucose 252 H (74-99) mg/dL Plasma Lactic Acid Kulwant (0.7-2.0) mmol/L Calcium 8.5 (8.4-10.2) mg/dL Total Bilirubin 0.5 (0.2-1.3) mg/dL AST 39 (17-59) U/L ALT 29 (4-49) U/L Alkaline Phosphatase 174 H (38-126) U/L Troponin I (0.000-0.034) ng/mL NT-Pro-B Natriuret Pep 53278 pg/mL Total Protein 5.3 L (6.3-8.2) g/dL Albumin 3.1 L (3.5-5.0) g/dL 09/03/23 09/03/23 Range/Units 11:32 11:32 WBC (3.8-10.6) k/uL RBC (4.30-5.90) m/uL Hgb (13.0-17.5) gm/dL Hct (39.0-53.0) % MCV (80.0-100.0) fL MCH (25.0-35.0) pg MCHC (31.0-37.0) g/dL RDW (11.5-15.5) % Plt Count (150-450) k/uL MPV Neutrophils % % Lymphocytes % % Monocytes % % Eosinophils % % Basophils % % Neutrophils # (1.3-7.7) k/uL Lymphocytes # (1.0-4.8) k/uL Monocytes # (0-1.0) k/uL Eosinophils # (0-0.7) k/uL Basophils # (0-0.2) k/uL Hypochromasia Macrocytosis PT (10.0-12.5) sec INR (<1.2) APTT (22.0-30.0) sec Sodium (137-145) mmol/L Potassium (3.5-5.1) mmol/L Chloride (98-107) mmol/L Carbon Dioxide (22-30) mmol/L Anion Gap mmol/L BUN (9-20) mg/dL Creatinine (0.66-1.25) mg/dL Est GFR (CKD-EPI)AfAm (>60 ml/min/1.73 sqM) Est GFR (CKD-EPI)NonAf (>60 ml/min/1.73 sqM) Glucose (74-99) mg/dL Plasma Lactic Acid Kulwant 1.1 (0.7-2.0) mmol/L Calcium (8.4-10.2) mg/dL Total Bilirubin (0.2-1.3) mg/dL AST (17-59) U/L ALT (4-49) U/L Alkaline Phosphatase (38-126) U/L Troponin I 0.032 (0.000-0.034) ng/mL NT-Pro-B Natriuret Pep pg/mL Total Protein (6.3-8.2) g/dL Albumin (3.5-5.0) g/dL - EKG Data EKG Comments: G shows a sinus rhythm with nonspecific ST and T-wave changes compared to prior. 67 bpm, IL 180, QRS 110, QT/QTc 411/427. Disposition Clinical Impression: Kidney failure, Heart failure Disposition: ADMITTED IP TO THIS HOSP Referrals: None,Stated [Primary Care Provider] - 1-2 days Time of Disposition: 13:04
--- NOTE | 2023-09-03 11:19 | XR ---
EXAMINATION TYPE: XR chest 2V DATE OF EXAM: 09/03/2023 11:13 AM CLINICAL INDICATION:Male, 58 years old with history of difficulty breathing; [facility] COMPARISON: Chest radiographs from 12/06/2018 TECHNIQUE: XR chest 2V Frontal and lateral views of the chest. FINDINGS: Lungs/Pleura: No evidence of focal consolidation or pneumothorax. Blunting of the costophrenic angles is present. Pulmonary vascularity: Pulmonary vascular congestion. Heart/mediastinum: Cardiomediastinal silhouette is enlarged and stable. Musculoskeletal: No acute osseous pathology. Other findings: None IMPRESSION: Small bilateral pleural effusions which are new. Given cardiomegaly and some pulmonary edema correlat e for congestive heart failure
[2023-09-03 11:43] LABS: Basophils % (A) 0 %; Eosinophils # (A) 0.1 k/uL (0-0.7); Eosinophils % (A) 1 %; HCT 26.7 % (39.0-53.0); Hypochromasia Marked; Lymphocytes # (A) 0.5 k/uL (1.0-4.8); Lymphocytes % (A) 9 %; MCH 30.7 pg (25.0-35.0); MCHC 30.1 g/dL (31.0-37.0); Macrocytosis Slight; Mean Platelet Volume 8.8; Monocytes # (A) 0.4 k/uL (0-1.0); Monocytes % (A) 6 %; Neutrophils # (A) 4.7 k/uL (1.3-7.7); Neutrophils % (A) 82 %; Platelet Count 169 k/uL (150-450); RBC 2.61 m/uL (4.30-5.90); RDW 14.8 % (11.5-15.5); WBC 5.7 k/uL (3.8-10.6)
[2023-09-03 11:53] LABS: ALT 29 U/L (4-49); AST 39 U/L (17-59); African American GFR (CKD) 18 (>60 ml/min/1.73 sqM); Albumin 3.1 g/dL (3.5-5.0); Alkaline Phosphatase 174 U/L (38-126); Anion Gap 10 mmol/L; Blood Urea Nitrogen 94 mg/dL (9-20); Calcium 8.5 mg/dL (8.4-10.2); Carbon Dioxide 16 mmol/L (22-30); Chloride 112 mmol/L (98-107); Glucose 252 mg/dL (74-99); Non-African American GFR(CKD) 16 (>60 ml/min/1.73 sqM); Sodium 138 mmol/L (137-145); Total Bilirubin 0.5 mg/dL (0.2-1.3); Total Protein 5.3 g/dL (6.3-8.2)
--- NOTE | 2023-09-03 12:13 | US ---
EXAMINATION TYPE: US venous doppler duplex LE BI DATE OF EXAM: 09/03/2023 11:23 AM COMPARISON: NONE CLINICAL INDICATION: Male, 58 years old with history of r/o dvt; SIDE PERFORMED: Bilateral TECHNIQUE: The lower extremity deep venous system is examined utilizing real time linear array sonog wade with graded compression, doppler sonography and color-flow sonography. VESSELS IMAGED: Common Femoral Vein Deep Femoral Vein Greater Saphenous Vein * Femoral Vein Popliteal Vein Small Saphenous Vein * Proximal Calf Veins (* superficial vessels) Right Leg: Negative for DVT Left Leg: Negative for DVTGrayscale, color doppler, spectral doppler imaging performed of the deep v eins of the lower extremities. There is normal flow, compressibility, vascular waveforms. Subcutaneous edema bilaterally. IMPRESSION: 1. Negative for DVT 2. Subcutaneous edema bilaterally.
[2023-09-03 12:16] LABS: INR 1.1 (<1.2); Partial Thromboplastin Time 23.4 sec (22.0-30.0); Prothrombin Time 11.5 sec (10.0-12.5)
[2023-09-03 12:22] LABS: NT-Pro-B-Type Natriuretic Pept 64900 pg/mL; Potassium 6.5 mmol/L (3.5-5.1)
[2023-09-03] MEDS ORDERED: ALBUTEROL NEB (CONC) 2.5 MG/0.5 ML INHALATION ONE (12:48)
[2023-09-03] MEDS ORDERED: SODIUM ZIRCONIUM CYCLOSILICATE 10 GM PACKET PO ONE ×2 (12:48→17:46)
[2023-09-03] MEDS ORDERED: CALCIUM GLUCONATE IN NACL 1 GM in SALINE 1 100ML.BAG IVPB ONE (12:48)
[2023-09-03] MEDS ORDERED: INSULIN REGULAR 100 UNIT/ML VIAL (IV) IV ONE ×2 (12:48→17:46)
[2023-09-03] MEDS ORDERED: NALOXONE 0.4 MG/ML 1 ML VIAL IV PRN (13:05)
[2023-09-03] MEDS ORDERED: FUROSEMIDE 10 MG/ML 10 ML VIAL IV STA (13:48)
[2023-09-03 15:02] LABS: Bacteria,Urine Rare /hpf; Mucus,Urine Rare /hpf; RBC,Urine 8 /hpf (0-5); WBC,Urine 1 /hpf (0-5)
[2023-09-03] MEDS ORDERED: ONDANSETRON 4 MG/2 ML VIAL IVP PRN (15:04)
[2023-09-03] MEDS ORDERED: TEMAZEPAM 15 MG CAP PO PRN (15:04)
[2023-09-03] MEDS ORDERED: MELATONIN 3 MG TABLET PO PRN (15:04)
[2023-09-03 15:07] LABS: Appearance,Urine Clear (Clear); Bilirubin,Urine Negative (Negative); Color,Urine Yellow; Glucose,Urine (UA) Negative (Negative); Ketones,Urine Negative (Negative); PH, Urine 5.5 (5.0-8.0); Protein,Urine 1+ (Negative)
[2023-09-03 15:08] LABS: Blood,Urine Small (Negative); Leukocyte Esterase,Urine Negative (Negative); Nitrite,Urine Negative (Negative); Urobilinogen,Urine <2.0 mg/dL (<2.0)
--- NOTE | 2023-09-03 15:14 | P.HPIM ---
History of Present Illness H&P Date: 09/03/23 Patient is a 58 -year-old male with history of diabetes currently on insulin pump status post pancreatic transplant, end-stage renal disease, CVA, coronary artery disease status post 2 stents, and multiple other comorbid conditions who presented with concerns about inguinal hernia is due to increased edema in his scrotal area and lower extremities. In the ER he underwent an extensive evaluation. On arrival his vital signs within normal limits. Laboratory analysis included CBC, coags, basic metabolic profile, AST, ALT, troponin, and BNP which was remarkable for hemoglobin 6, potassium 6.5, chloride 112, carbon dioxide 16, BUN 94, creatinine 4.02, glucose 252, troponin 0.032, and BNP 64,900. In the ER he was given temporizing measures for his hyperkalemia including IV insulin, calcium gluconate, and albuterol. Arrangements are made for admission. Patient seen and examined at bedside. He reports that for the last 1 week he has noted increasing lower extremity edema. His scrotal area now is significantly enlarged and he was worried about having hernias there. He also reports shortness of breath with exertion that has been getting worse, increased lethargy, and shaking starting in his upper extremities. He denies any recent cough, cold, fever, flu. He had his pancreatic and renal transplant in 2013. His pancreatic transplant has failed and he now requires an insulin pump. He follows with a sawmill relief worker out of [facility] on her and states that his kidney function is at 30% but he is unsure when his last creatinine was. He last saw him approximately 2 weeks ago. He also states that he was told he has a "weak heart" after an episode of hospitalization several years ago. He denies any known history of congestive heart failure and states he recently had an echocardiogram performed that his inside sales account manager office. Vital signs reviewed General: nontoxic, no distress, appears at stated age Derm: warm, dry Eyes: EOMI, no lid lag, anicteric sclera, pupils equal round reactive to light ENT: Nose and ears atraumatic, no thrush, no pharyngeal erythema Cardiovascular: S1S2 reg, no murmur, positive posterior tibial pulse bilateral, 4+ lower extremity edema, capillary refill less than 2 seconds Lungs: Coarse breath sounds bilateral, no rhonchi, no rales, no wheeze, no accessory muscle use Abdominal: soft, nontender to palpation, no guarding, no appreciable organomegaly, normal bowel sounds Ext: no gross muscle atrophy, no contractures Neuro: CN II-XII grossly intact, no focal neuro deficits Psych: Alert, oriented, appropriate affect Assessment/Plan: Acute fluid overload suspect secondary to congestive heart failure, unknown ejection fraction Acute kidney injury on probable chronic kidney disease status post renal transplant Hyperkalemia Non-anion gap metabolic acidosis -Case discussed with ER clinician. Admit to 3 S. -Obtain records from patient's inside sales account manager for most recent echocardiogram and transplant sawmill relief worker her most recent creatinine -Patient has already received albuterol 10 mg, insulin regular 10 units IV, and low, 5 mg -Start Lasix 60 mg IV every 12 hours, first dose now -Patient does report some difficulty urinating due to his significant scrotal edema. Insert Koroma catheter -Nephrology to determine whether or not we should ultrasound his renal trans plant -Case discussed with Dr. Garcia. Check mycophenolate and tacrolimus levels in a.m. Agrees with Lasix. Patient is appropriate to remain on our facility. - Check his nose, daily weights -Check echocardiogram -Resume home tacrolimus 2 mg at night and 3 mg in the morning, mycophenolate 720 mg twice daily, sodium bicarb 1300 mg 3 times daily, and prednisone 5 mg daily -Hold Cozaar given hyperkalemia - check UA -Repeat BMP hi1002 and in a.m. Diabetes mellitus type 2, insulin requiring status post pancreatic transplant -Accu-Cheks every before meals and at bedtime, check A1c, patient to continue with his home insulin pump. We will continue to monitor Accu-Cheks despite him having a [employer] Kathleen monitor to ensure there are no signs of insulin toxicity such as hypoglycemia. Coronary artery disease History of CVA Dyslipidemia -Plavix 75 mg daily, Coreg 25 mg oral daily, hydralazine 100 mg oral 3 times daily Imaging: Largely Doppler: Negative for DVT, subcutaneous edema bilaterally Chest x-ray as reviewed by myself: Increased pulmonary vasculature, bilateral pleural effusion left greater than right EKG is reviewed by myself shows sinus rhythm at a rate of 67, normal intervals, normal access with significant T-wave inversion V4 through V6, lead 2, 3, and aVF Data Review: As per HPI The patient is admitted with an anticipated greater than 2 midnight stay for evaluation of Renal failure Surrogate decision-maker: CODE STATUS: Full DVT prophylaxis: [SCDs] Discussed with: Patient, family, nursing, Dr. Garcia Anticipated discharge date: Pending Clinical Course Anticipated discharge place: Pending Clinical Course This dictation was prepared using [employer] voice recognition software. Though every attempt is made to correct errors during dictation some may still exist. Past Medical History Past Medical History: CVA/TIA, Hyperlipidemia, Hypertension, Renal Disease Additional Past Medical History / Comment(s): pancreatitis, last dialysis 2012, hernia, DM, CAD, CVA History of Any Multi-Drug Resistant Organisms: None Reported Additional Past Surgical History / Comment(s): kidney and pancreases transplant 2012, lt arm fistula, peritoneal dialysis catheter inserted and removed Past Anesthesia/Blood Transfusion Reactions: No Reported Reaction Past Psychological History: Depression Smoking Status: Current every day smoker Past Alcohol Use History: Occasional Past Drug Use History: None Reported Medications and Allergies Home Medications Medication Instructions Recorded Confirmed Type Gabapentin [Neurontin] 300 mg PO TID 10/06/19 09/03/23 History Losartan [Cozaar] 25 mg PO DAILY 10/06/19 09/03/23 History Metoclopramide [Reglan] 5 mg PO TID 10/06/19 09/03/23 History Omeprazole 40 mg PO DAILY 10/06/19 09/03/23 History Sodium Bicarbonate Tab 1,300 mg PO TID 10/06/19 09/03/23 History Tacrolimus [Prograf] 3 mg PO DAILY 10/06/19 09/03/23 History carvediloL 25 mg PO BID 10/06/19 09/03/23 History predniSONE 5 mg PO DAILY 10/06/19 09/03/23 History Atorvastatin [Lipitor] 40 mg PO HS #30 tab 10/08/19 09/03/23 Rx Clopidogrel [Plavix] 75 mg PO DAILY #30 tab 10/08/19 09/03/23 Rx Insulin Aspart (For Pump) [NovoLOG 0.01 unit SQ-PUMP CONTINUOUS #1 10/08/19 09/03/23 Rx (For Pump)] vial Mycophenolate Sodium [Mycophenolic 720 mg PO BID 09/03/23 09/03/23 History Acid] Tacrolimus [Prograf] 2 mg PO HS 09/03/23 09/03/23 History hydrALAZINE HCL [Apresoline] 100 mg PO TID 09/03/23 09/03/23 History Allergies Allergy/AdvReac Type Severity Reaction Status Date / Time No Known Drug Allergies Allergy Unknown Verified 09/03/23 13:26 Physical Exam Osteopathic Statement: *. No significant issues noted on an osteopathic structural exam other than those noted in the History and Physical/Consult. Vitals: Vital Signs Temp Pulse Resp BP Pulse Ox 09/03/23 14:13 66 15 125/63 09/03/23 13:55 72 09/03/23 13:45 70 09/03/23 10:30 98.4 F 70 24 142/78 92 L Intake and Output 09/03/23 09/03/23 09/03/23 06:59 14:59 22:59 Other: Weight 83.915 kg Results CBC & Chem 7: 09/03/23 11:32 09/03/23 11:32 Labs: Abnormal Lab Results - Last 24 Hours (Table) 09/03/23 09/03/23 09/03/23 Range/Units 11:32 11:32 14:15 RBC 2.61 L (4.30-5.90) m/uL Hgb 8.0 L (13.0-17.5) gm/dL Hct 26.7 L (39.0-53.0) % MCV 102.0 H (80.0-100.0) fL MCHC 30.1 L (31.0-37.0) g/dL Lymphocytes # 0.5 L (1.0-4.8) k/uL Potassium 6.5 H* (3.5-5.1) mmol/L Chloride 112 H (98-107) mmol/L Carbon Dioxide 16 L (22-30) mmol/L BUN 94 H (9-20) mg/dL Creatinine 4.02 H (0.66-1.25) mg/dL Glucose 252 H (74-99) mg/dL Alkaline Phosphatase 174 H (38-126) U/L Total Protein 5.3 L (6.3-8.2) g/dL Albumin 3.1 L (3.5-5.0) g/dL Urine RBC 8 H (0-5) /hpf Urine Bacteria Rare H (None) /hpf Urine Mucus Rare H (None) /hpf
[2023-09-03 16:04] LABS: Glucose,Whole Blood 93 mg/dL (70-110)
[2023-09-03] MEDS: hydrALAZINE HCL 50 MG TAB PO SCH ×2 (16:04→21:42)
[2023-09-03] MEDS: SODIUM BICARBONATE TAB 650 MG TAB PO SCH ×2 (16:05→21:42)
[2023-09-03] MEDS: METOCLOPRAMIDE 5 MG TAB PO SCH ×2 (16:06→21:42)
[2023-09-03] MEDS: HEPARIN SODIUM,PORCINE 5,000 UNIT/ML 1 ML VIAL SQ SCH (16:06)
[2023-09-03] MEDS: GABAPENTIN 300 MG CAP PO SCH ×2 (16:07→21:41)
[2023-09-03] MEDS ORDERED: SODIUM BICARB 8.4% 50 ML SYR (1 MEQ/ML) IV STA (17:46)
[2023-09-03] MEDS ORDERED: DEXTROSE 50% SYRINGE 50 ML IVP STA (17:46)
[2023-09-03] MEDS: Insulin Aspart (For Pump) 100 UNIT/ML VIAL SQ-PUMP SCH (17:49)
[2023-09-03 21:36] LABS: Glucose,Whole Blood 162 mg/dL (70-110)
[2023-09-03] MEDS: TACROLIMUS 1 MG CAP PO SCH (21:42)
[2023-09-03] MEDS: carvediloL 12.5 MG TAB PO SCH (21:42)
[2023-09-03] MEDS: ATORVASTATIN 40 MG TAB PO SCH (21:42)
[2023-09-03] MEDS: MYCOPHENOLATE SODIUM DR 180 MG TABLET.DR PO SCH (21:43)
[2023-09-03 23:59] LABS: African American GFR (CKD) 19 (>60 ml/min/1.73 sqM); Anion Gap 11 mmol/L; Blood Urea Nitrogen 94 mg/dL (9-20); Calcium 8.2 mg/dL (8.4-10.2); Carbon Dioxide 15 mmol/L (22-30); Chloride 112 mmol/L (98-107); Glucose 162 mg/dL (74-99); Non-African American GFR(CKD) 16 (>60 ml/min/1.73 sqM); Sodium 138 mmol/L (137-145)
[2023-09-04 00:08] LABS: Potassium 6.6 mmol/L (3.5-5.1)
[2023-09-04] MEDS: HEPARIN SODIUM,PORCINE 5,000 UNIT/ML 1 ML VIAL SQ SCH ×4 (00:34→21:54)
[2023-09-04] MEDS ORDERED: DEXTROSE 50% SYRINGE 50 ML IVP STA (06:07)
[2023-09-04] MEDS ORDERED: SODIUM BICARB 8.4% 50 ML SYR (1 MEQ/ML) IV STA (06:07)
[2023-09-04] MEDS ORDERED: SODIUM POLYSTYRENE SULFONATE 15 GM/60 ML BOTTLE PO STA (06:07)
[2023-09-04] MEDS ORDERED: INSULIN REGULAR 100 UNIT/ML VIAL (IM/SQ) SQ ONE (06:15)
[2023-09-04] MEDS ORDERED: CALCIUM GLUCONATE IN NACL 1 GM in SALINE 1 100ML.BAG IVPB ONE (07:00)
--- NOTE | 2023-09-04 07:03 | P.CRDCN ---
History of Present Illness History of present illness: HISTORY OF PRESENT ILLNESS: This is a 58-year-old male with a past medical history significant for hypertension, hyperlipidemia, subacute CVA, diabetes, and kidney and pancreatic transplant in 2012 in [place]. Patient does not follow with a linux security administrator. We have been asked to see the patient in consultation for congestive heart failure. Patient examined at the bedside. * EKG reveals []. * Chest xray small bilateral pleural effusions which are new. Given cardiomeg lucian and some pulmonary edema, correlate for congestive heart failure * Venous Doppler: Negative for DVT bilaterally * Laboratory data: WBC 5.7. Hemoglobin 8.0. Platelet count 169. Sodium 138. Potassium 6.5. BUN 94. Creatinine 4.02. Troponin 0.032. ProBNP 64,900. * Current home cardiac medications include Lipitor 40 mg at night, losartan 25 mg daily, Plavix 75 mg daily, carvedilol 25 mg twice a day, hydralazine 100 mg 3 times a day * Most recent echocardiogram obtained in September 2019 revealing ejection fraction 55-60%, mild MR, mild TR REVIEW OF SYSTEMS: At the time of my exam: CONSTITUTIONAL: Denies fever or chills. HEENT: Denies blurred vision, vision changes, or eye pain. Denies hemoptysis CARDIOVASCULAR: Denies chest pain. Denies orthopnea. Denies PND. Denies palpitations RESPIRATORY: Denies shortness of breath. GASTROINTESTINAL: Denies abdominal pain. Denies nausea or vomiting. HEMATOLOGIC: Denies bleeding disorders. GENITOURINARY: Denies any blood in urine. SKIN: Denies pruitis. Denies rash. PHYSICAL EXAM: VITAL SIGNS: Reviewed. GENERAL: Well-developed in no acute distress. HEENT: Head is normocephalic. Pupils are equal, round. Sclerae anicteric. Mucous membranes of the mouth are moist. Neck supple. No JVD or thyromegaly LUNGS: Respirations even and unlabored. Lungs essentially clear to auscultation bilaterally. HEART: Regular rate and rhythm. S1 and S2 heard. ABDOMEN: Soft. Nondistended. Nontender. EXTREMITIES: Normal range of motion. No clubbing or cyanosis. Peripheral pulses intact. No lower extremity edema NEUROLOGIC: Awake and alert. Oriented x 3. ASSESSMENT: Shortness of breath with increased lower extremity edema Volume overload secondary to acute renal failure proBNP 64,900 Hyperkalemia Acute on chronic renal failure Hypertension Hyperlipidemia History of subacute CVA, on Plavix outpatient Diabetes History of kidney and pancreatic transplant in 2012, in [place] Anemia PLAN: [] Nurse practitioner note has been reviewed by physician. Signing provider agrees with the documented findings, assessment, and plan of care. Past Medical History Past Medical History: Dialysis, Hyperlipidemia, Renal Disease Additional Past Medical History / Comment(s): pancreatitis, last dialysis 2012, hernia, History of Any Multi-Drug Resistant Organisms: None Reported Additional Past Surgical History / Comment(s): kidney and pancreases transplant 2012, lt arm fistul which has been reserved june 2019 Past Anesthesia/Blood Transfusion Reactions: No Reported Reaction Past Psychological History: Depression Smoking Status: Current every day smoker Past Alcohol Use History: Occasional Past Drug Use History: None Reported Medications and Allergies Home Medications Medication Instructions Recorded Confirmed Type Gabapentin [Neurontin] 300 mg PO TID 10/06/19 09/03/23 History Losartan [Cozaar] 25 mg PO DAILY 10/06/19 09/03/23 History Metoclopramide [Reglan] 5 mg PO TID 10/06/19 09/03/23 History Omeprazole 40 mg PO DAILY 10/06/19 09/03/23 History Sodium Bicarbonate Tab 1,300 mg PO TID 10/06/19 09/03/23 History Tacrolimus [Prograf] 3 mg PO DAILY 10/06/19 09/03/23 History carvediloL 25 mg PO BID 10/06/19 09/03/23 History predniSONE 5 mg PO DAILY 10/06/19 09/03/23 History Atorvastatin [Lipitor] 40 mg PO HS #30 tab 10/08/19 09/03/23 Rx Clopidogrel [Plavix] 75 mg PO DAILY #30 tab 10/08/19 09/03/23 Rx Insulin Aspart (For Pump) [NovoLOG 0.01 unit SQ-PUMP CONTINUOUS #1 10/08/19 09/03/23 Rx (For Pump)] vial Mycophenolate Sodium [Mycophenolic 720 mg PO BID 09/03/23 09/03/23 History Acid] Tacrolimus [Prograf] 2 mg PO HS 09/03/23 09/03/23 History hydrALAZINE HCL [Apresoline] 100 mg PO TID 09/03/23 09/03/23 History Allergies Allergy/AdvReac Type Severity Reaction Status Date / Time No Known Drug Allergies Allergy Unknown Verified 09/03/23 13:26 Physical Exam Vitals: Vital Signs Temp Pulse Resp BP Pulse Ox 09/03/23 13:55 72 09/03/23 13:45 70 09/03/23 10:30 98.4 F 70 24 142/78 92 L Intake and Output 09/02/23 09/03/23 09/03/23 22:59 06:59 14:59 Other: Weight 83.915 kg Results 09/03/23 11:32 09/03/23 11:32 Cardiac Enzymes 09/03/23 09/03/23 Range/Units 11:32 11:32 AST 39 (17-59) U/L Troponin I 0.032 (0.000-0.034) ng/mL Coagulation 09/03/23 Range/Units 11:32 PT 11.5 (10.0-12.5) sec APTT 23.4 (22.0-30.0) sec CBC 09/03/23 Range/Units 11:32 WBC 5.7 (3.8-10.6) k/uL RBC 2.61 L (4.30-5.90) m/uL Hgb 8.0 L (13.0-17.5) gm/dL Hct 26.7 L (39.0-53.0) % Plt Count 169 (150-450) k/uL Comprehensive Metabolic Panel 09/03/23 Range/Units 11:32 Sodium 138 (137-145) mmol/L Potassium 6.5 H* (3.5-5.1) mmol/L Chloride 112 H (98-107) mmol/L Carbon Dioxide 16 L (22-30) mmol/L BUN 94 H (9-20) mg/dL Creatinine 4.02 H (0.66-1.25) mg/dL Glucose 252 H (74-99) mg/dL Calcium 8.5 (8.4-10.2) mg/dL AST 39 (17-59) U/L ALT 29 (4-49) U/L Alkaline Phosphatase 174 H (38-126) U/L Total Protein 5.3 L (6.3-8.2) g/dL Albumin 3.1 L (3.5-5.0) g/dL Current Medications Generic Name Dose Route Start Last Admin Trade Name Freq PRN Reason Stop Dose Admin Naloxone HCl 0.2 mg 09/03/23 13:05 Naloxone 0.4 Mg/Ml 1 Ml Vial IV Q2M PRN Opioid Reversal Intake and Output 09/02/23 09/03/23 09/03/23 22:59 06:59 14:59 Other: Weight 83.915 kg Patient Weight 09/04/23 06:59 Weight 83.915 kg 09/03/23 11:32 09/03/23 11:32
[2023-09-04] MEDS: FUROSEMIDE 10 MG/ML 10 ML VIAL IV SCH ×2 (08:09→21:53)
[2023-09-04 09:00] LABS: HCT 25.4 % (39.0-53.0); HGB 7.7 gm/dL (13.0-17.5); Hypochromasia Marked; MCH 31.2 pg (25.0-35.0); MCHC 30.4 g/dL (31.0-37.0); MCV 102.6 fL (80.0-100.0); Macrocytosis Slight; Mean Platelet Volume 8.6; Platelet Count 166 k/uL (150-450); RBC 2.47 m/uL (4.30-5.90); RDW 14.8 % (11.5-15.5); WBC 6.7 k/uL (3.8-10.6)
[2023-09-04 09:05] LABS: ALT 24 U/L (4-49); AST 20 U/L (17-59); African American GFR (CKD) 19 (>60 ml/min/1.73 sqM); Alkaline Phosphatase 124 U/L (38-126); Anion Gap 13 mmol/L; Blood Urea Nitrogen 92 mg/dL (9-20); Calcium 8.5 mg/dL (8.4-10.2); Carbon Dioxide 15 mmol/L (22-30); Chloride 112 mmol/L (98-107); Glucose 209 mg/dL (74-99); Non-African American GFR(CKD) 16 (>60 ml/min/1.73 sqM); Potassium 5.5 mmol/L (3.5-5.1); Sodium 140 mmol/L (137-145); Total Bilirubin 0.5 mg/dL (0.2-1.3)
[2023-09-04] MEDS: PANTOPRAZOLE 40 MG TABLET PO SCH (09:55)
[2023-09-04] MEDS: hydrALAZINE HCL 50 MG TAB PO SCH ×3 (09:55→21:52)
[2023-09-04] MEDS: SODIUM BICARBONATE TAB 650 MG TAB PO SCH ×3 (09:55→21:54)
[2023-09-04] MEDS: METOCLOPRAMIDE 5 MG TAB PO SCH ×3 (09:56→21:51)
[2023-09-04] MEDS: carvediloL 12.5 MG TAB PO SCH ×2 (09:56→17:08)
[2023-09-04] MEDS: CLOPIDOGREL 75 MG TAB PO SCH (09:56)
[2023-09-04] MEDS: TACROLIMUS 1 MG CAP PO SCH ×2 (09:58→21:53)
[2023-09-04] MEDS: predniSONE 5 MG TAB PO SCH (09:58)
[2023-09-04] MEDS: MYCOPHENOLATE SODIUM DR 180 MG TABLET.DR PO SCH ×2 (09:59→21:52)
--- NOTE | 2023-09-04 11:25 | P.NPCON ---
History of Present Illness - Reason for Consult acute renal failure - History of Present Illness Patient is a 58-year-old male who is visiting from [place] for hunting. Patient has a history of simultaneous kidney pancreas transplant in 2012. The pancreas transplant has failed and patient's GFR has been around 30 about 4 weeks ago per patient. Patient is admitted to the hospital with history of increased swelling in the legs and shortness of breath as well. Patient states that his legs have been pr ogressively getting worse over the last 1-2 months. No previous history of CHF No urinary symptoms Maintained on prednisone Prograf and CellCept. EF 55% on previous echocardiogram from [place]. Blood pressure has not been low Patient is being diuresed. Lasix is at 60 mg IV every 12 hours. Serum creatinine was 4.0 on admission and it is 3.8 today. Potassium was also elevated at 6.8 and it is 5.5 this morning. Patient has an indwelling Koroma catheter which was placed in the ER for Is and Os. No obvious retention noted. Review of Systems As per HPI Past Medical History Past Medical History: Dialysis, Hyperlipidemia, Renal Disease Additional Past Medical History / Comment(s): pancreatitis, last dialysis 2012, hernia, History of Any Multi-Drug Resistant Organisms: None Reported Additional Past Surgical History / Comment(s): kidney and pancreases transplant 2012, lt arm fistul which has been reserved june 2019 Past Anesthesia/Blood Transfusion Reactions: No Reported Reaction Past Psychological History: Depression Smoking Status: Current every day smoker Past Alcohol Use History: Occasional Past Drug Use History: None Reported Medications and Allergies Home Medications Medication Instructions Recorded Confirmed Type Gabapentin [Neurontin] 300 mg PO TID 10/06/19 09/03/23 History Losartan [Cozaar] 25 mg PO DAILY 10/06/19 09/03/23 History Metoclopramide [Reglan] 5 mg PO TID 10/06/19 09/03/23 History Omeprazole 40 mg PO DAILY 10/06/19 09/03/23 History Sodium Bicarbonate Tab 1,300 mg PO TID 10/06/19 09/03/23 History Tacrolimus [Prograf] 3 mg PO DAILY 10/06/19 09/03/23 History carvediloL 25 mg PO BID 10/06/19 09/03/23 History predniSONE 5 mg PO DAILY 10/06/19 09/03/23 History Atorvastatin [Lipitor] 40 mg PO HS #30 tab 10/08/19 09/03/23 Rx Clopidogrel [Plavix] 75 mg PO DAILY #30 tab 10/08/19 09/03/23 Rx Insulin Aspart (For Pump) [NovoLOG 0.01 unit SQ-PUMP CONTINUOUS #1 10/08/19 09/03/23 Rx (For Pump)] vial Mycophenolate Sodium [Mycophenolic 720 mg PO BID 09/03/23 09/03/23 History Acid] Tacrolimus [Prograf] 2 mg PO HS 09/03/23 09/03/23 History hydrALAZINE HCL [Apresoline] 100 mg PO TID 09/03/23 09/03/23 History Allergies Allergy/AdvReac Type Severity Reaction Status Date / Time No Known Drug Allergies Allergy Unknown Verified 09/03/23 13:26 Physical Exam Vitals: Vital Signs Temp Pulse Pulse Resp BP BP Pulse Ox 09/04/23 08:00 98.1 F 70 20 157/81 95 09/04/23 04:15 97.9 F 69 18 118/57 92 L 09/04/23 00:51 63 17 143/73 96 09/03/23 22:00 65 21 140/92 96 09/03/23 21:45 68 20 138/71 95 09/03/23 21:40 67 22 138/71 94 L 09/03/23 18:00 18 149/83 95 09/03/23 17:00 127/70 96 09/03/23 16:00 112/65 09/03/23 15:11 18 83 L 09/03/23 14:13 66 15 125/63 09/03/23 13:55 72 09/03/23 13:45 70 Intake and Output 09/03/23 09/04/23 09/04/23 22:59 06:59 14:59 Intake Total 358 Output Total 950 Balance -950 358 Intake: Oral 358 Output: Urine 950 Other: Voiding Method Indwelling Catheter Weight 83.915 kg Patient is awake, alert oriented 3 No acute distress Examination of the heart S1 and S2 Examination of the lungs bilateral breath sounds are heard with decreased breath sounds at the bases and basal crackles. Abdomen is soft distended Examination of the lower extremities shows significant edema 2-3+ bilaterally LEATHER HEEL BREASTER exam grossly intact Results - Lab Results Most recent lab results Calcium 8.5 mg/dL (8.4-10.2) 09/04/23 08:20 Phosphorus 4.9 mg/dL (2.5-4.5) H 09/04/23 08:20 09/04/23 08:20 09/04/23 08:20 Assessment and Plan Assessment: 1. Acute kidney injury, most likely cardiorenal with an element of ATN. Currently nonoliguric. Patient is being diuresed. The UA shows 1+ protein. Previous creatinine 1.7 on 10/08/2019. Per patient his GFR was around 30 about 4 weeks ago. Tacrolimus level is ordered. 2. Status post simultaneous kidney pancreas transplant with failed pancreatic transplant and functioning kidney transplant with chronic kidney disease NKF stage IIIB to 4. Maintained on prednisone Prograf and CellCept. 3. 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 4. Hyperkalemia associated with use of tacrolimus along with metabolic acidosis and acute kidney injury. Rule out GI bleed. 5. Anemia rule out iron deficiency, no obvious bleeding noted. Rule out GI bleed 6. Volume overload currently being diuresed. EF 55% on echocardiogram from [place] Plan: Continue with IV Lasix Repeat potassium this evening Continue with oral sodium bicarb Check ultrasound of transplant kidney Check iron profile Add Aranesp Repeat labs in a.m. May continue with Koroma catheter for now. Follow-up on tacrolimus level Thank you for the consultation. We will continue to follow the patient with you during his hospitalization.
[2023-09-04 11:43] LABS: Glucose,Whole Blood 173 mg/dL (70-110)
--- NOTE | 2023-09-04 12:25 | US ---
EXAMINATION TYPE: US kidneys/renal and bladder DATE OF EXAM: 09/04/2023 COMPARISON: NONE CLINICAL INDICATION: Male, 58 years old with history of transplant kidney; Retention of water - abdom en, legs, and feet. Patient denies any other signs and symptoms. EXAM MEASUREMENTS: Right Kidney: 5.92 x 5.17 x 2.99 cm Left Kidney: 5.64 x 3.22 x 3.44 cm Right Kidney: 5.92 x 5.17 x 2.99 cm Left Kidney: 5.64 x 3.22 x 3.44 cm Bladder: WNL as vis - arias seen within There is no evidence for hydronephrosis at this point in time. No nephrolithiasis is seen. No maximilian s are identified. The urinary bladder is anechoic. Bilateral ureteral jets are seen. IMPRESSION: 1. No evidence for obstructive uropathy. 2. Arias catheter in place.
--- NOTE | 2023-09-04 12:48 | P.CRDCN ---
History of Present Illness Consult date: 09/04/23 History of present illness: HISTORY OF PRESENT ILLNESS: This is a 58-year-old male with a past medical history significant for coronary artery disease hypertension, hyperlipidemia, subacute CVA, diabetes, peripheral vascular disease and kidney and pancreatic transplant in 2012 in [place]. Patient does not follow with a job interviewer. We have been asked to see the patient in consultation for congestive heart failure. The patient lives in [place] and states he is in [place] for hunting. He has had lower extremity edema for the past 1-1/2 weeks. He states he has occasional shortness of breath. No chest pain. He has had swelling in the past in his lower legs but not this severe. Patient is currently on IV Lasix 60 mg every 12 hours and nephrology is cherelle cesar. EKG reveals sinus rhythm. Chest xray small bilateral pleural effusions which are new. Given cardiomegaly and some pulmonary edema, correlate for congestive heart failure Venous Doppler: Negative for DVT bilaterally Laboratory data: WBC 5.7. Hemoglobin 8.0. Platelet count 169. Sodium 138. Po tassium 6.5. BUN 94. Creatinine 4.02. Troponin 0.032. ProBNP 64,900. Current home cardiac medications include Lipitor 40 mg at night, losartan 25 mg daily, Plavix 75 mg daily, carvedilol 25 mg twice a day, hydralazine 100 mg 3 times a day Most recent echocardiogram obtained in September 2019 revealing ejection fraction 55-60%, mild MR, mild TR Echocardiogram performed in [place] 05/29/2023, reveals EF 50-55% with mild hypokinesis of the basal to mild anterior lateral and basal to mid inferior lateral monsalve grade 2 diastolic dysfunction mild left atrial enlargement, aortic sclerosis without stenosis with MR, RVSP 38 mmHg, mild TR. REVIEW OF SYSTEMS: At the time of my exam: CONSTITUTIONAL: Denies fever or chills. HEENT: Denies blurred vision, vision changes, or eye pain. Denies hemoptysis CARDIOVASCULAR: Denies chest pain. Denies orthopnea. Denies PND. Denies palpitations, lower extremity edema RESPIRATORY: Mild shortness of breath. GASTROINTESTINAL: Denies abdominal pain. Denies nausea or vomiting. HEMATOLOGIC: Denies bleeding disorders. GENITOURINARY: Denies any blood in urine. SKIN: Denies pruitis. Denies rash. PHYSICAL EXAM: VITAL SIGNS: Reviewed. GENERAL: Well-developed in no acute distress. HEENT: Head is normocephalic. Pupils are equal, round. Sclerae anicteric. Mucous membranes of the mouth are moist. Neck supple. No JVD or thyromegaly LUNGS: Decreased breath sounds at the bases. Lungs essentially clear to auscultation bilaterally. HEART: Regular rate and rhythm. S1 and S2 heard. ABDOMEN: Soft. Nondistended. Nontender. EXTREMITIES: No clubbing or cyanosis. Peripheral pulses intact. 2-3+ lower extremity edema NEUROLOGIC: Awake and alert. Oriented x 3. ASSESSMENT: Volume overload secondary to acute renal failure proBNP 64,900 Hyperkalemia Acute on chronic renal failure Hypertension Hyperlipidemia History of subacute CVA, on Plavix outpatient Diabetes History of kidney and pancreatic transplant in 2012, in [place] Anemia PLAN: Continue IV Lasix Monitor I&O, daily weights, electrolytes and renal function No need to repeat echocardiogram Further recommendations pending patient's progress Nurse practitioner note has been reviewed by physician. Signing provider agrees with the documented findings, assessment, and plan of care. Past Medical History Past Medical History: Dialysis, Hyperlipidemia, Renal Disease Additional Past Medical History / Comment(s): pancreatitis, last dialysis 2012, hernia, History of Any Multi-Drug Resistant Organisms: None Reported Additional Past Surgical History / Comment(s): kidney and pancreases transplant 2012, lt arm fistul which has been reserved june 2019 Past Anesthesia/Blood Transfusion Reactions: No Reported Reaction Past Psychological History: Depression Smoking Status: Current every day smoker Past Alcohol Use History: Occasional Past Drug Use History: None Reported Medications and Allergies Home Medications Medication Instructions Recorded Confirmed Type Gabapentin [Neurontin] 300 mg PO TID 10/06/19 09/03/23 History Losartan [Cozaar] 25 mg PO DAILY 10/06/19 09/03/23 History Metoclopramide [Reglan] 5 mg PO TID 10/06/19 09/03/23 History Omeprazole 40 mg PO DAILY 10/06/19 09/03/23 History Sodium Bicarbonate Tab 1,300 mg PO TID 10/06/19 09/03/23 History Tacrolimus [Prograf] 3 mg PO DAILY 10/06/19 09/03/23 History carvediloL 25 mg PO BID 10/06/19 09/03/23 History predniSONE 5 mg PO DAILY 10/06/19 09/03/23 History Atorvastatin [Lipitor] 40 mg PO HS #30 tab 10/08/19 09/03/23 Rx Clopidogrel [Plavix] 75 mg PO DAILY #30 tab 10/08/19 09/03/23 Rx Insulin Aspart (For Pump) [NovoLOG 0.01 unit SQ-PUMP CONTINUOUS #1 10/08/19 09/03/23 Rx (For Pump)] vial Mycophenolate Sodium [Mycophenolic 720 mg PO BID 09/03/23 09/03/23 History Acid] Tacrolimus [Prograf] 2 mg PO HS 09/03/23 09/03/23 History hydrALAZINE HCL [Apresoline] 100 mg PO TID 09/03/23 09/03/23 History Allergies Allergy/AdvReac Type Severity Reaction Status Date / Time No Known Drug Allergies Allergy Unknown Verified 09/03/23 13:26 Physical Exam Vitals: Vital Signs Temp Pulse Pulse Resp BP BP Pulse Ox 09/04/23 04:15 97.9 F 69 18 118/57 92 L 09/04/23 00:51 63 17 143/73 96 09/03/23 22:00 65 21 140/92 96 09/03/23 21:45 68 20 138/71 95 09/03/23 21:40 67 22 138/71 94 L 09/03/23 18:00 18 149/83 95 09/03/23 17:00 127/70 96 09/03/23 16:00 112/65 09/03/23 15:11 18 83 L 09/03/23 14:13 66 15 125/63 09/03/23 13:55 72 09/03/23 13:45 70 09/03/23 10:30 98.4 F 70 24 142/78 92 L Intake and Output 09/03/23 09/04/23 09/04/23 22:59 06:59 14:59 Output Total 950 Balance -950 Output: Urine 950 Other: Weight 83.915 kg Results 09/04/23 08:20 09/04/23 08:20 Cardiac Enzymes 09/03/23 09/03/23 Range/Units 11:32 11:32 AST 39 (17-59) U/L Troponin I 0.032 (0.000-0.034) ng/mL Coagulation 09/03/23 Range/Units 11:32 PT 11.5 (10.0-12.5) sec APTT 23.4 (22.0-30.0) sec CBC 09/03/23 Range/Units 11:32 WBC 5.7 (3.8-10.6) k/uL RBC 2.61 L (4.30-5.90) m/uL Hgb 8.0 L (13.0-17.5) gm/dL Hct 26.7 L (39.0-53.0) % Plt Count 169 (150-450) k/uL Comprehensive Metabolic Panel 09/03/23 09/03/23 09/03/23 Range/Units 11:32 16:35 22:39 Sodium 138 138 (137-145) mmol/L Potassium 6.5 H* 6.8 H* 6.6 H* (3.5-5.1) mmol/L Chloride 112 H 112 H (98-107) mmol/L Carbon Dioxide 16 L 15 L (22-30) mmol/L BUN 94 H 94 H (9-20) mg/dL Creatinine 4.02 H 3.91 H (0.66-1.25) mg/dL Glucose 252 H 162 H (74-99) mg/dL Calcium 8.5 8.2 L (8.4-10.2) mg/dL AST 39 (17-59) U/L ALT 29 (4-49) U/L Alkaline Phosphatase 174 H (38-126) U/L Total Protein 5.3 L (6.3-8.2) g/dL Albumin 3.1 L (3.5-5.0) g/dL Current Medications Generic Name Dose Route Start Last Admin Trade Name Elijahq PRN Reason Stop Dose Admin Acetaminophen 650 mg 09/03/23 15:04 Acetaminophen Tab 325 Mg Tab PO Q6HR PRN Mild Pain or Fever > 100.5 Atorvastatin Calcium 40 mg 09/03/23 21:00 09/03/23 21:42 Atorvastatin 40 Mg Tab PO 40 mg HS GIA Administration Carvedilol 25 mg 09/03/23 17:30 09/03/23 21:42 Carvedilol 12.5 Mg Tab PO 25 mg BID-W/MEALS GIA Administration Clopidogrel Bisulfate 75 mg 09/04/23 09:00 Clopidogrel 75 Mg Tab PO DAILY GIA Gabapentin 300 mg 09/03/23 16:00 09/03/23 21:41 Gabapentin 300 Mg Cap PO 300 mg TID GIA Administration Heparin Sodium (Porcine) 5,000 unit 09/03/23 16:00 09/04/23 00:34 Heparin Sodium,Porcine 5,000 Unit/Ml 1 Ml Vial SQ Not Given Q8HR GIA Hydralazine HCl 100 mg 09/03/23 16:00 09/03/23 21:42 Hydralazine Hcl 50 Mg Tab PO 100 mg TID GIA Administration Calcium Gluconate/Sodium 100 mls @ 100 mls/hr 09/04/23 07:00 09/04/23 06:42 Chloride 1 gm/ IV Solution IVPB 09/04/23 07:59 100 mls/hr ONCE ONE Administration Insulin Aspart 0.01 unit 09/03/23 15:15 09/03/23 17:49 Insulin Aspart (For Pump) 100 Unit/Ml Vial SQ-PUMP Not Given CONTINUOUS GIA Melatonin 3 mg 09/03/23 15:04 Melatonin 3 Mg Tablet PO HS PRN Insomnia Metoclopramide HCl 5 mg 09/03/23 16:00 09/03/23 21:42 Metoclopramide 5 Mg Tab PO 5 mg TID GIA Administration Mycophenolate Sodium 720 mg 09/03/23 21:00 09/03/23 21:[address] 180 Mg Tablet.Dr PO 720 mg BID GIA Administration Naloxone HCl 0.2 mg 09/03/23 13:05 Naloxone 0.4 Mg/Ml 1 Ml Vial IV Q2M PRN Opioid Reversal Ondansetron HCl 4 mg 09/03/23 15:04 Ondansetron 4 Mg/2 Ml Vial IVP Q8HR PRN Nausea And Vomiting Pantoprazole Sodium 40 mg 09/04/23 07:30 Pantoprazole 40 Mg Tablet PO AC-BRKFST GIA Prednisone 5 mg 09/04/23 09:00 Prednisone 5 Mg Tab PO DAILY GIA Sodium Bicarbonate 1,300 mg 09/03/23 16:00 09/03/23 21:42 Sodium Bicarbonate Tab 650 Mg Tab PO 1,300 mg TID GIA Administration Tacrolimus 2 mg 09/03/23 21:00 09/03/23 21:42 Tacrolimus 1 Mg Cap PO 2 mg HS GIA Administration Tacrolimus 3 mg 09/04/23 09:00 Tacrolimus 1 Mg Cap PO DAILY GIA Temazepam 15 mg 09/03/23 15:04 Temazepam 15 Mg Cap PO HS PRN Insomnia Intake and Output 10/23/23 10/24/23 10/24/23 22:59 06:59 14:59 Output Total 950 Balance -950 Output: Urine 950 Other: Weight 83.915 kg 09/03/23 11:32 09/03/23 22:39
[2023-09-04] MEDS: DARBEPOETIN ALFA 60 MCG/0.3 ML SYRINGE SQ SCH (14:33)
[2023-09-04 16:44] LABS: Glucose,Whole Blood 147 mg/dL (70-110)
[2023-09-04] MEDS: Insulin Aspart (For Pump) 100 UNIT/ML VIAL SQ-PUMP SCH (17:09)
[2023-09-04 17:22] LABS: % Iron Saturation 31.53 (15.00-50.00)
--- NOTE | 2023-09-04 19:24 | P.PN ---
Subjective Progress Note Date: 09/04/23 (delayed charting seen at 1120) Patient is a 58 -year-old male with history of diabetes currently on insulin pump status post pancreatic transplant, end-stage renal disease, CVA, coronary artery disease status post 2 stents, and multiple other comorbid conditions who presented with concerns about inguinal hernia is due to increased edema in his scrotal area and lower extremities. In the ER he underwent an extensive evaluation. On arrival his vital signs within normal limits. Laboratory analysis included CBC, coags, basic metabolic profile, AST, ALT, troponin, and BNP which was remarkable for hemoglobin 6, potassium 6.5, chloride 112, carbon dioxide 16, BUN 94, creatinine 4.02, glucose 252, troponin 0.032, and BNP 64,900. In the ER he was given temporizing measures for his hyperkalemia including IV insulin, calcium gluconate, and albuterol. Arrangements were made for admission. Case was discussed with nephrology. He required multiple doses of Lasix and lokalema for improvement in his potassium. Patient seen and examined at bedside. He continues to have some lower extremity edema, his breathing is better than yesterday. He denies being nausea or vomit ing. Vital signs reviewed General: nontoxic, no distress, appears at stated age Cardiovascular: S1S2 reg, no murmur, positive posterior tibial pulse bilateral, Lungs: Coarse breath sounds bilateral, no rhonchi, no rales , no accessory muscle use Abdominal: soft, nontender to palpation, no guarding, no appreciable organomegaly Ext: no gross muscle atrophy, 4+ lower extremity edema, no contractures Neuro: CN II-XI grossly intact, no focal neuro deficits Psych: Alert, oriented, appropriate affect Assessment/Plan: Acute fluid overload suspect secondary to congestive heart failure, unknown ejection fraction Acute kidney injury on probable chronic kidney disease status post renal transplant Hyperkalemia Non-anion gap metabolic acidosis - Lasix 60 mg IV every 12 hours, first dose now - Case dsicssed with neprho will continue current treatment regiment -Nephrology to determine whether or not we should ultrasound his renal transplant - Strict I and O, daily weights -Await echocardiogram -tacrolimus 2 mg at night and 3 mg in the morning, mycophenolate 720 mg twice daily, sodium bicarb 1300 mg 3 times daily, and prednisone 5 mg daily -Continue to hold Cozaar given hyperkalemia -Repeat BMP in a.m. Diabetes mellitus type 2, insulin requiring status post pancreatic transplant -Accu-Cheks every before meals and at bedtime, check A1c, patient to continue with his home insulin pump. We will continue to monitor Accu-Cheks despite him having a [employer] Kathleen monitor to ensure there are no signs of insulin toxicity such as hypoglycemia. Coronary artery disease History of CVA Dyslipidemia -Plavix 75 mg daily, Coreg 25 mg oral daily, hydralazine 100 mg oral 3 times daily Imaging: None new Data Review: Labs reviewed are CBC, CMP, iron studies which are remarkable for hemoglobin 7.7, potassium 5.5, chloride 112, carbon dioxide 15, anion gap 13, creatinine 3.84, BUN 92, phosphorus 4.9. DVT prophylaxis: Hepairn Anticipated discharge date: Pending Clinical Course Anticipated discharge place: Pending Clinical Course This dictation was prepared using [employer] voice recognition software. Though every attempt is made to correct errors during dictation some may still exist. Objective - Vital Signs Vital signs: Vital Signs Temp 97.6 F 09/04/23 16:47 Pulse 63 09/04/23 16:47 Resp 20 09/04/23 16:47 BP 139/74 09/04/23 16:47 Pulse Ox 95 09/04/23 16:47 FiO2 Intake & Output 09/04/23 09/04/23 09/05/23 06:59 18:59 06:59 Intake Total 594 Output Total 950 2325 Balance -950 -1731 Weight 83.915 kg Intake: Oral 594 Output: Urine 950 2325 Other: Voiding Method Indwelling Catheter - Labs CBC & Chem 7: 09/04/23 08:20 09/04/23 08:20 Labs: Abnormal Lab Results - Last 24 Hours (Table) 09/03/23 09/03/23 09/04/23 Range/Units 21:34 22:39 08:20 RBC 2.47 L (4.30-5.90) m/uL Hgb 7.7 L (13.0-17.5) gm/dL Hct 25.4 L (39.0-53.0) % MCV 102.6 H (80.0-100.0) fL MCHC 30.4 L (31.0-37.0) g/dL Potassium 6.6 H* (3.5-5.1) mmol/L Chloride 112 H (98-107) mmol/L Carbon Dioxide 15 L (22-30) mmol/L BUN 94 H (9-20) mg/dL Creatinine 3.91 H (0.66-1.25) mg/dL Glucose 162 H (74-99) mg/dL POC Glucose (mg/dL) 162 H (70-110) mg/dL Calcium 8.2 L (8.4-10.2) mg/dL Phosphorus (2.5-4.5) mg/dL Total Protein (6.3-8.2) g/dL Albumin (3.5-5.0) g/dL 09/04/23 09/04/23 09/04/23 Range/Units 08:20 08:20 11:41 RBC (4.30-5.90) m/uL Hgb (13.0-17.5) gm/dL Hct (39.0-53.0) % MCV (80.0-100.0) fL MCHC (31.0-37.0) g/dL Potassium 5.5 H (3.5-5.1) mmol/L Chloride 112 H (98-107) mmol/L Carbon Dioxide 15 L (22-30) mmol/L BUN 92 H (9-20) mg/dL Creatinine 3.84 H (0.66-1.25) mg/dL Glucose 209 H (74-99) mg/dL POC Glucose (mg/dL) 173 H (70-110) mg/dL Calcium (8.4-10.2) mg/dL Phosphorus 4.9 H (2.5-4.5) mg/dL Total Protein 5.0 L (6.3-8.2) g/dL Albumin 3.0 L (3.5-5.0) g/dL 09/04/23 Range/Units 16:42 RBC (4.30-5.90) m/uL Hgb (13.0-17.5) gm/dL Hct (39.0-53.0) % MCV (80.0-100.0) fL MCHC (31.0-37.0) g/dL Potassium (3.5-5.1) mmol/L Chloride (98-107) mmol/L Carbon Dioxide (22-30) mmol/L BUN (9-20) mg/dL Creatinine (0.66-1.25) mg/dL Glucose (74-99) mg/dL POC Glucose (mg/dL) 147 H (70-110) mg/dL Calcium (8.4-10.2) mg/dL Phosphorus (2.5-4.5) mg/dL Total Protein (6.3-8.2) g/dL Albumin (3.5-5.0) g/dL
[2023-09-04 20:09] LABS: Glucose,Whole Blood 203 mg/dL (70-110)
[2023-09-04 21:31] LABS: African American GFR (CKD) 18 (>60 ml/min/1.73 sqM); Anion Gap 10 mmol/L; Blood Urea Nitrogen 91 mg/dL (9-20); Calcium 8.2 mg/dL (8.4-10.2); Carbon Dioxide 20 mmol/L (22-30); Chloride 108 mmol/L (98-107); Glucose 175 mg/dL (74-99); Non-African American GFR(CKD) 15 (>60 ml/min/1.73 sqM); Sodium 138 mmol/L (137-145)
[2023-09-04] MEDS: ATORVASTATIN 40 MG TAB PO SCH (21:52)
--- NOTE | 2023-09-04 22:18 | CA ---
Transthoracic Echo Report Name: Richar Olson Age: 58 Gender: M : 1965 Exam Date: 09/04/2023 12:43 Exam Location: [facility] Ht (in): 66 Wt (lb): 185 Ordering Physician: Wilda Street Attending/Referring Phys: [id number], Yenifer Call Box Wirer Procedure CPT: Indications: LVF Cardiac Hx: Technical Quality: Fair Contrast 1: Total Dose (mL): Contrast 2: Total Dose (mL): MEASUREMENTS (Male / Female) Normal Values 2D ECHO LV Diastolic Diameter PLAX 4.9 cm 4.2 - 5.9 / 3.9 - 5.3 cm LV Systolic Diameter PLAX 3.9 cm IVS Diastolic Thickness 0.9 cm 0.6 - 1.0 / 0.6 - 0.9 cm LVPW Diastolic Thickness 1.1 cm 0.6 - 1.0 / 0.6 - 0.9 cm LV Relative Wall Thickness 0.4 RV Internal Dim ED PLAX 3.2 cm LVOT Diameter 2.1 cm Aortic Root Diameter 2.6 cm LA Systolic Diameter LX 3.1 cm 3.0 - 4.0 / 2.7 - 3.8 cm LV Diastolic Volume MOD BP 102.0 cm??? 67 - 155 / 56 - 104 cm??? LV Systolic Volume MOD BP 46.9 cm??? - / 19 - 49 cm??? LV Ejection Fraction MOD BP 54.0 % >= 55 % LV Cardiac Index MOD BP 1814.5 cm???/min???m??? LV Diastolic Volume MOD 4C 107.5 cm??? LV Systolic Volume MOD 4C 57.9 cm??? LV Ejection Fraction MOD 4C 46.1 % LV Cardiac Index MOD 4C 1635.0 cm???/min???m??? LV Diastolic Length 4C 8.6 cm LV Systolic Length 4C 7.5 cm LV Diastolic Volume MOD 2C 96.3 cm??? LV Systolic Volume MOD 2C 38.3 cm??? LV Ejection Fraction MOD 2C 60.2 % LV Cardiac Index MOD 2C 1911.5 cm???/min???m??? LV Diastolic Length 2C 8.6 cm LV Systolic Length 2C 7.5 cm LA Volume 58.1 cm??? - / 22 - 52 cm??? LA Volume Index 29.0 cm???/m??? 16 - 28 cm???/m??? Ascending Aorta Diameter 2.9 cm DOPPLER AV Peak Velocity 173.6 cm/s AV Peak Gradient 12.1 mmHg LVOT Peak Velocity 107.5 cm/s LVOT Peak Gradient 4.6 mmHg LVOT Velocity Time Integral 25.0 cm LVOT Stroke Volume 83.5 cm??? LVOT Stroke Volume Index 43.1 ml/m??? LVOT Cardiac Index 2752.8 cm???/min???m??? AV Area Cont Eq pk 2.1 cm??? MV Peak Velocity 169.3 cm/s MV Peak Gradient 11.5 mmHg MV Mean Velocity 65.7 cm/s MV Mean Gradient 2.4 mmHg MV Velocity Time Integral 51.8 cm MR Peak Velocity 390.0 cm/s MR Peak Gradient 60.8 mmHg Mitral E Point Velocity 132.2 cm/s Mitral A Point Velocity 93.9 cm/s Mitral E to A Ratio 1.4 MV Deceleration Time 182.3 ms MV E' Velocity 5.9 cm/s Mitral E to MV E' Ratio 22.4 TR Peak Velocity 318.9 cm/s TR Peak Gradient 40.7 mmHg Right Ventricular Systolic Press 45.7 mmHg PV Peak Velocity 156.3 cm/s PV Peak Gradient 9.8 mmHg FINDINGS Left Ventricle Normal LV size and wall thickness. Left ventricular ejection fraction is estimated at 45-50 %. Mid to basal inferior wall appears hypokinetic Right Ventricle Normal right ventricular size. RVSP= 46mmHg. Right Atrium Normal right atrial size. Left Atrium Mildly increased left atrial volume. LA volume index= 30ml/m2 Mitral Valve Structurally normal mitral valve. Aortic Valve Trileaflet aortic valve. No aortic valve stenosis or regurgitation. Tricuspid Valve Structurally normal tricuspid valve. Moderate to severe TR. Pulmonic Valve Pulmonic valve not well visualized. Mild PI. Pericardium Normal pericardium. Aorta Normal size aortic root and proximal ascending aorta. CONCLUSIONS Left ventricular ejection fraction is estimated at 45-50 %. Mid to basal inferior wall appears hypokinetic. RVSP= 46mmHg. Moderate TR Previewed by: Dr Isaiah Frank (Electronically Signed) Final Date: 04 September 2023 22:17
[2023-09-05 06:08] LABS: Glucose,Whole Blood 155 mg/dL (70-110)
[2023-09-05] MEDS: carvediloL 12.5 MG TAB PO SCH ×2 (07:58→17:49)
[2023-09-05] MEDS: PANTOPRAZOLE 40 MG TABLET PO SCH (07:58)
[2023-09-05 09:44] LABS: HCT 24.8 % (39.0-53.0); HGB 7.8 gm/dL (13.0-17.5); Hypochromasia Marked; MCH 31.5 pg (25.0-35.0); MCHC 31.3 g/dL (31.0-37.0); MCV 100.5 fL (80.0-100.0); Macrocytosis Slight; Mean Platelet Volume 8.2; Platelet Count 175 k/uL (150-450); RBC 2.47 m/uL (4.30-5.90); RDW 14.4 % (11.5-15.5); WBC 6.6 k/uL (3.8-10.6)
[2023-09-05] MEDS: HEPARIN SODIUM,PORCINE 5,000 UNIT/ML 1 ML VIAL SQ SCH ×2 (10:19→17:49)
[2023-09-05] MEDS: MYCOPHENOLATE SODIUM DR 180 MG TABLET.DR PO SCH ×2 (10:20→22:29)
[2023-09-05] MEDS: SODIUM BICARBONATE TAB 650 MG TAB PO SCH ×3 (10:20→22:11)
[2023-09-05] MEDS: CLOPIDOGREL 75 MG TAB PO SCH (10:20)
[2023-09-05] MEDS: hydrALAZINE HCL 50 MG TAB PO SCH ×3 (10:20→22:11)
[2023-09-05] MEDS: FUROSEMIDE 10 MG/ML 10 ML VIAL IV SCH ×2 (10:20→22:11)
[2023-09-05] MEDS: TACROLIMUS 1 MG CAP PO SCH ×2 (10:21→22:30)
[2023-09-05] MEDS: METOCLOPRAMIDE 5 MG TAB PO SCH ×3 (10:21→22:12)
[2023-09-05] MEDS: predniSONE 5 MG TAB PO SCH (10:21)
[2023-09-05 10:28] LABS: African American GFR (CKD) 18 (>60 ml/min/1.73 sqM); Anion Gap 11 mmol/L; Blood Urea Nitrogen 91 mg/dL (9-20); Calcium 8.3 mg/dL (8.4-10.2); Carbon Dioxide 19 mmol/L (22-30); Chloride 109 mmol/L (98-107); Glucose 180 mg/dL (74-99); Non-African American GFR(CKD) 16 (>60 ml/min/1.73 sqM); Potassium 5.4 mmol/L (3.5-5.1); Sodium 139 mmol/L (137-145)
[2023-09-05 11:29] LABS: Glucose,Whole Blood 178 mg/dL (70-110)
--- NOTE | 2023-09-05 11:37 | P.PN ---
Subjective Progress Note Date: 09/05/23 HISTORY OF PRESENT ILLNESS: This is a 58-year-old male with a past medical history significant for coronary artery disease hypertension, hyperlipidemia, subacute CVA, diabetes, peripheral vascular disease and kidney and pancreatic transplant in 2012 in [place]. 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 We have been asked to see the patient in consultation for congestive heart failure. The patient lives in [place] and states he is in [place] for hunting. He has had lower extremity edema for the past 1-1/2 weeks. He states he has occasional shortness of breath. No chest pain. He has had swelling in the past in his lower legs but not this severe. Patient is currently on IV Lasix 60 mg every 12 hours and nephrology is following. EKG reveals sinus rhythm. Chest xray small bilateral pleural effusions which are new. Given cardiomegaly and some pulmonary edema, correlate for congestive heart failure Venous Doppler: Negative for DVT bilaterally Laboratory data: WBC 5.7. Hemoglobin 8.0. Platelet count 169. Sodium 138. Potassium 6.5. BUN 94. Creatinine 4.02. Troponin 0.032. ProBNP 64,900. Current home cardiac medications include Lipitor 40 mg at night, losartan 25 mg daily, Plavix 75 mg daily, carvedilol 25 mg twice a day, hydralazine 100 mg 3 times a day Most recent echocardiogram obtained in September 2019 revealing ejection fraction 55-60%, mild MR, mild TR Echocardiogram performed in [place] 05/29/2023, reveals EF 50-55% with mild hypokinesis of the basal to mild anterior lateral and basal to mid inferior lateral monsalve grade 2 diastolic dysfunction mild left atrial enlargement, aortic sclerosis without stenosis with MR, RVSP 38 mmHg, mild TR. 09/05 Patient is seen today in follow-up. He states his breathing is okay and he does not have any chest pain. His only concern is about the lower extremity edema which she continues to have and it slowly improving. Koroma catheter in place. Patient relates today that he did have stents done to his heart year ago. Ec hocardiogram reveals EF of 45-50%. Mid to basal inferior wall hypokinetic. RVSP 46 mmHg. Moderate TR. Renal ultrasound revealed no obstructive uropathy. Repeat blood work reveals hemoglobin of 7.8, BUN 91 creatinine 3.97, potassium 5.4. Patient is currently on Lasix 60 mg IV every 12 hours. PHYSICAL EXAM: VITAL SIGNS: Reviewed. GENERAL: Well-developed in no acute distress. HEENT: Head is normocephalic. Pupils are equal, round. Sclerae anicteric. No JVD or thyromegaly LUNGS: Decreased breath sounds at the bases. Lungs essentially clear to auscultation bilaterally. HEART: Regular rate and rhythm. S1 and S2 heard. ABDOMEN: Soft. Nondistended. Nontender. EXTREMITIES: No clubbing or cyanosis. Peripheral pulses intact. 2-3+ lower extremity edema NEUROLOGIC: Awake and alert. Oriented x 3. ASSESSMENT: Volume overload secondary to acute renal failure proBNP 64,900 Hyperkalemia Acute on chronic renal failure History of coronary artery disease with previous stent 1 year ago Hypertension Hyperlipidemia History of subacute CVA, on Plavix outpatient Diabetes History of kidney and pancreatic transplant in 2013, in [place] Anemia PLAN: Continue IV Lasix Monitor I&O, daily weights, electrolytes and renal function No need to repeat echocardiogram Further recommendations pending patient's progress Nurse practitioner note has been reviewed by physician. Signing provider agrees with the documented findings, assessment, and plan of care. Objective - Vital Signs Vital signs: Vital Signs Temp 98.3 F 09/05/23 08:45 Pulse 72 09/05/23 08:45 Resp 18 09/05/23 08:45 BP 125/60 09/05/23 08:45 Pulse Ox 96 09/05/23 08:45 FiO2 Intake & Output 09/04/23 09/05/23 09/05/23 18:59 06:59 18:59 Intake Total 594 240 Output Total 2325 2200 Balance -1731 -2200 240 Weight 82 kg Intake: Oral 594 240 Output: Urine 2325 2200 Other: Voiding Method Indwelling Catheter Indwelling Catheter - Labs CBC & Chem 7: 09/05/23 08:56 09/05/23 08:56 Labs: Abnormal Lab Results - Last 24 Hours (Table) 09/04/23 09/04/23 09/04/23 Range/Units 11:41 16:42 20:06 Potassium (3.5-5.1) mmol/L Chloride (98-107) mmol/L Carbon Dioxide (22-30) mmol/L BUN (9-20) mg/dL Creatinine (0.66-1.25) mg/dL Glucose (74-99) mg/dL POC Glucose (mg/dL) 173 H 147 H 203 H (70-110) mg/dL Calcium (8.4-10.2) mg/dL 09/04/23 09/05/23 Range/Units 20:28 06:06 Potassium 6.0 H (3.5-5.1) mmol/L Chloride 108 H (98-107) mmol/L Carbon Dioxide 20 L (22-30) mmol/L BUN 91 H (9-20) mg/dL Creatinine 4.10 H (0.66-1.25) mg/dL Glucose 175 H (74-99) mg/dL POC Glucose (mg/dL) 155 H (70-110) mg/dL Calcium 8.2 L (8.4-10.2) mg/dL
[2023-09-05] MEDS: LACTULOSE 20 GM/30 ML CUP PO SCH ×2 (12:55→22:10)
[2023-09-05 16:10] LABS: Glucose,Whole Blood 304 mg/dL (70-110)
--- NOTE | 2023-09-05 17:09 | P.PN ---
Subjective Progress Note Date: 09/05/23 (delayed charting seen at 1030 ) Patient is a 58 -year-old male with history of diabetes currently on insulin pump status post pancreatic transplant, end-stage renal disease, CVA, coronary artery disease status post 2 stents, and multiple other comorbid conditions who presented with concerns about inguinal hernia is due to increased edema in his scrotal area and lower extremities. In the ER he underwent an extensive evaluation. On arrival his vital signs within normal limits. Laboratory analysis included CBC, coags, basic metabolic profile, AST, ALT, troponin, and BNP which was remarkable for hemoglobin 6, potassium 6.5, chloride 112, carbon dioxide 16, BUN 94, creatinine 4.02, glucose 252, troponin 0.032, and BNP 64,900. In the ER he was given temporizing measures for his hyperkalemia including IV insulin, calcium gluconate, and albuterol. Arrangements were made for admission. Case was discussed with nephrology. He required multiple doses of Lasix and lokalema for improvement in his potassium. He had good diuresis with lasix 60 mg IVP. His echo showed EF of 45-50%. Patient seen and examined at bedside. He has no complaints. He is still having some swelling, breathing is doing well. Vital signs reviewed General: nontoxic, no distress, appears at stated age Cardiovascular: S1S2 reg, no murmur, positive posterior tibial pulse bilateral, Lungs: Coarse breath sounds bilateral, no rhonchi, no rales , no accessory mus kirsty use Abdominal: soft, nontender to palpation, no guarding, no appreciable organomegaly Ext: no gross muscle atrophy, 4+ lower extremity edema, no contractures Neuro: CN II-XI grossly intact, no focal neuro deficits Psych: Alert, oriented, appropriate affect Assessment/Plan: Acute fluid overload suspect secondary to congestive systolic and diastolic heart failure, EF 45-50% Acute kidney injury on probable chronic kidney disease status post renal transplant Hyperkalemia Non-anion gap metabolic acidosis - Lasix 60 mg IV every 12 hours - Await further nephrology recs - Renal US without obstructive uropathy - Strict I and O, daily weights -tacrolimus 2 mg at night and 3 mg in the morning, mycophenolate 720 mg twice daily, sodium bicarb 1300 mg 3 times daily, and prednisone 5 mg daily -Continue to hold Cozaar given hyperkalemia -Cardio note reviewed: continue IV Lasix -Repeat BMP in a.m. Diabetes mellitus type 2, insulin requiring status post pancreatic transplant -Accu-Cheks every before meals and at bedtime, Awair A1c, patient to continue with his home insulin pump. We will continue to monitor Accu-Cheks despite him having a [employer] Kathleen monitor to ensure there are no signs of insulin toxicity such as hypoglycemia. Coronary artery disease History of CVA Dyslipidemia -Plavix 75 mg daily, Coreg 25 mg oral daily, hydralazine 100 mg oral 3 times daily Imaging: Echo- EF 45-50% with basal inferior wall hypokinesis, RVSP 46. Renal US: No evidence of obstructive uropathy, arias in place Data Review: Labs reviewed include CBC and BMP remarkable for HgB 7.8, K+5.4, CO2 19, BUN 91, and Cr 3.97, tacro level 8.5. DVT prophylaxis: Hepairn Anticipated discharge date: Pending Clinical Course Anticipated discharge place: Pending Clinical Course This dictation was prepared using [employer] voice recognition software. Though every attempt is made to correct errors during dictation some may still exist. Objective - Vital Signs Vital signs: Vital Signs Temp 98.5 F 09/05/23 12:00 Pulse 102 H 09/05/23 12:00 Resp 16 09/05/23 12:00 BP 150/84 09/05/23 12:00 Pulse Ox 94 L 09/05/23 12:00 FiO2 Intake & Output 09/04/23 09/05/23 09/05/23 18:59 06:59 18:59 Intake Total 594 480 Output Total 2325 2200 2350 Balance -1731 -2200 -1870 Weight 82 kg Intake: Oral 594 480 Output: Urine 2325 2200 2350 Other: Voiding Method Indwelling Catheter Indwelling Catheter Indwelling Catheter - Labs CBC & Chem 7: 09/05/23 08:56 09/05/23 08:56 Labs: Abnormal Lab Results - Last 24 Hours (Table) 09/04/23 09/04/23 09/05/23 Range/Units 20:06 20:28 06:06 RBC (4.30-5.90) m/uL Hgb (13.0-17.5) gm/dL Hct (39.0-53.0) % MCV (80.0-100.0) fL Potassium 6.0 H (3.5-5.1) mmol/L Chloride 108 H (98-107) mmol/L Carbon Dioxide 20 L (22-30) mmol/L BUN 91 H (9-20) mg/dL Creatinine 4.10 H (0.66-1.25) mg/dL Glucose 175 H (74-99) mg/dL POC Glucose (mg/dL) 203 H 155 H (70-110) mg/dL Calcium 8.2 L (8.4-10.2) mg/dL 09/05/23 09/05/23 09/05/23 Range/Units 08:56 08:56 11:28 RBC 2.47 L (4.30-5.90) m/uL Hgb 7.8 L (13.0-17.5) gm/dL Hct 24.8 L (39.0-53.0) % MCV 100.5 H (80.0-100.0) fL Potassium 5.4 H (3.5-5.1) mmol/L Chloride 109 H (98-107) mmol/L Carbon Dioxide 19 L (22-30) mmol/L BUN 91 H (9-20) mg/dL Creatinine 3.97 H (0.66-1.25) mg/dL Glucose 180 H (74-99) mg/dL POC Glucose (mg/dL) 178 H (70-110) mg/dL Calcium 8.3 L (8.4-10.2) mg/dL 09/05/23 Range/Units 16:08 RBC (4.30-5.90) m/uL Hgb (13.0-17.5) gm/dL Hct (39.0-53.0) % MCV (80.0-100.0) fL Potassium (3.5-5.1) mmol/L Chloride (98-107) mmol/L Carbon Dioxide (22-30) mmol/L BUN (9-20) mg/dL Creatinine (0.66-1.25) mg/dL Glucose (74-99) mg/dL POC Glucose (mg/dL) 304 H (70-110) mg/dL Calcium (8.4-10.2) mg/dL
[2023-09-05] MEDS: Insulin Aspart (For Pump) 100 UNIT/ML VIAL SQ-PUMP SCH (17:50)
[2023-09-05 19:39] LABS: Glucose,Whole Blood 349 mg/dL (70-110)
--- NOTE | 2023-09-05 20:04 | P.PN ---
Subjective Patient is seen for f/u for MARIO on top of kidney diseas. S/p donor allograft 10 years ago. Visiting from [place]. Currently being diuresed for severe volume overload. Serum creatinine remains elevated.It is 3.9 today. 24 hr UOP 4.5 L Over all feeling better. BP is not low. Briefly discussed COMFORT STATION SUPERVISOR with patient if renal function continues to worsen. He is diuresing well, therefore, no plans on HD for now. Objective - Vital Signs Vital signs: Vital Signs Temp 98.5 F 09/05/23 12:00 Pulse 72 09/05/23 17:30 Resp 18 09/05/23 17:30 BP 149/69 09/05/23 17:30 Pulse Ox 94 L 09/05/23 17:30 FiO2 Intake & Output 09/05/23 09/05/23 09/06/23 06:59 18:59 06:59 Intake Total 598 Output Total 2200 2350 Balance -2200 -1752 Weight 82 kg Intake: Oral 598 Output: Urine 2200 2350 Other: Voiding Method Indwelling Catheter Indwelling Catheter - Exam Awake, comfortable, no acute distress. Alert and oriented x3 Lungs show decreased breath sounds at bases CVS S1 and S2 Abdomen is soft, nontender. Extremities show 3+ edema bilaterally. WREATH INSPECTOR exam is intact. - Labs CBC & Chem 7: 09/05/23 08:56 09/05/23 08:56 Labs: Abnormal Lab Results - Last 24 Hours (Table) 09/04/23 09/04/23 09/05/23 Range/Units 20:06 20:28 06:06 RBC (4.30-5.90) m/uL Hgb (13.0-17.5) gm/dL Hct (39.0-53.0) % MCV (80.0-100.0) fL Potassium 6.0 H (3.5-5.1) mmol/L Chloride 108 H (98-107) mmol/L Carbon Dioxide 20 L (22-30) mmol/L BUN 91 H (9-20) mg/dL Creatinine 4.10 H (0.66-1.25) mg/dL Glucose 175 H (74-99) mg/dL POC Glucose (mg/dL) 203 H 155 H (70-110) mg/dL Calcium 8.2 L (8.4-10.2) mg/dL 09/05/23 09/05/23 09/05/23 Range/Units 08:56 08:56 11:28 RBC 2.47 L (4.30-5.90) m/uL Hgb 7.8 L (13.0-17.5) gm/dL Hct 24.8 L (39.0-53.0) % MCV 100.5 H (80.0-100.0) fL Potassium 5.4 H (3.5-5.1) mmol/L Chloride 109 H (98-107) mmol/L Carbon Dioxide 19 L (22-30) mmol/L BUN 91 H (9-20) mg/dL Creatinine 3.97 H (0.66-1.25) mg/dL Glucose 180 H (74-99) mg/dL POC Glucose (mg/dL) 178 H (70-110) mg/dL Calcium 8.3 L (8.4-10.2) mg/dL 09/05/23 09/05/23 Range/Units 16:08 19:37 RBC (4.30-5.90) m/uL Hgb (13.0-17.5) gm/dL Hct (39.0-53.0) % MCV (80.0-100.0) fL Potassium (3.5-5.1) mmol/L Chloride (98-107) mmol/L Carbon Dioxide (22-30) mmol/L BUN (9-20) mg/dL Creatinine (0.66-1.25) mg/dL Glucose (74-99) mg/dL POC Glucose (mg/dL) 304 H 349 H (70-110) mg/dL Calcium (8.4-10.2) mg/dL Assessment and Plan Assessment: 1. Acute kidney injury, most likely cardiorenal with an element of ATN. Currently nonoliguric. Patient is being diuresed. The UA shows 1+ protein. Previous creatinine 1.7 on 10/08/2019. Per patient his GFR was around 30 about 4 weeks ago. Tacrolimus level is ordered. No obstruction on USS. 2. Status post simultaneous kidney pancreas transplant with failed pancreatic transplant and functioning kidney transplant with chronic kidney disease NKF stage IIIB to 4. Maintained on prednisone Prograf and CellCept. 3. 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 4. Hyperkalemia associated with use of tacrolimus along with metabolic acidosis and acute kidney injury. Rule out GI bleed. 5. Anemia rule out iron deficiency, no obvious bleeding noted. Rule out GI bleed 6. Volume overload currently being diuresed. EF 45-50% Plan: Continue with IV Lasix Continue with oral sodium bicarb Add Aranesp Repeat labs in a.m. May continue with Koroma catheter for now. Follow-up on tacrolimus level Treat constipation. Discussed RT with patient. Will continue to assess on a daily basis.
[2023-09-05] MEDS: ATORVASTATIN 40 MG TAB PO SCH (22:12)
[2023-09-06] MEDS: HEPARIN SODIUM,PORCINE 5,000 UNIT/ML 1 ML VIAL SQ SCH ×4 (00:32→22:28)
[2023-09-06 06:19] LABS: Glucose,Whole Blood 331 mg/dL (70-110)
[2023-09-06] MEDS: FUROSEMIDE 10 MG/ML 10 ML VIAL IV SCH (08:29)
[2023-09-06 08:35] LABS: HCT 25.1 % (39.0-53.0); HGB 7.7 gm/dL (13.0-17.5); Hypochromasia Moderate; MCH 30.7 pg (25.0-35.0); MCHC 30.6 g/dL (31.0-37.0); MCV 100.3 fL (80.0-100.0); Macrocytosis Slight; Mean Platelet Volume 8.8; Platelet Count 177 k/uL (150-450); RDW 14.6 % (11.5-15.5); WBC 6.3 k/uL (3.8-10.6)
[2023-09-06 09:24] LABS: African American GFR (CKD) 20 (>60 ml/min/1.73 sqM); Anion Gap 11 mmol/L; Blood Urea Nitrogen 87 mg/dL (9-20); Calcium 8.2 mg/dL (8.4-10.2); Carbon Dioxide 22 mmol/L (22-30); Chloride 104 mmol/L (98-107); Glucose 253 mg/dL (74-99); Magnesium 1.4 mg/dL (1.6-2.3); Non-African American GFR(CKD) 17 (>60 ml/min/1.73 sqM); Potassium 4.8 mmol/L (3.5-5.1); Sodium 137 mmol/L (137-145)
[2023-09-06] MEDS: SODIUM BICARBONATE TAB 650 MG TAB PO SCH ×3 (11:20→22:00)
[2023-09-06] MEDS: TACROLIMUS 1 MG CAP PO SCH ×2 (11:21→22:00)
[2023-09-06] MEDS: CLOPIDOGREL 75 MG TAB PO SCH (11:21)
[2023-09-06] MEDS: MYCOPHENOLATE SODIUM DR 180 MG TABLET.DR PO SCH ×2 (11:21→22:00)
[2023-09-06] MEDS: hydrALAZINE HCL 50 MG TAB PO SCH ×3 (11:21→21:59)
[2023-09-06] MEDS: LACTULOSE 20 GM/30 ML CUP PO SCH ×2 (11:21→22:28)
[2023-09-06] MEDS: PANTOPRAZOLE 40 MG TABLET PO SCH (11:21)
[2023-09-06] MEDS: carvediloL 12.5 MG TAB PO SCH ×2 (11:22→16:47)
[2023-09-06] MEDS: predniSONE 5 MG TAB PO SCH (11:22)
[2023-09-06] MEDS: METOCLOPRAMIDE 5 MG TAB PO SCH ×3 (11:22→22:00)
[2023-09-06] MEDS: MAGNESIUM SULFATE-D5W PMX 1 GM in DEXTROSE/WATER 1 100ML.BAG IVPB SCH ×4 (11:22→16:47)
[2023-09-06 11:24] LABS: Glucose,Whole Blood 137 mg/dL (70-110)
--- NOTE | 2023-09-06 11:39 | P.PN ---
Subjective Patient is seen for f/u for MARIO on top of kidney disease. S/p donor allograft 10 years ago. Visiting from [place]. Currently being diuresed for severe volume overload. Serum creatinine at 3.7 today. 24 hr UOP 4.6 L Patient states that his legs are still significantly swollen with difficulty in ambulation. No significant shortness of breath Briefly discussed MEDICAL OFFICE ADMINISTRATOR with patient if renal function continues to worsen. He is diuresing well, therefore, no plans on HD for now. Objective - Vital Signs Vital signs: Vital Signs Temp 98.3 F 09/06/23 08:19 Pulse 70 09/06/23 08:19 Resp 20 09/06/23 08:19 BP 130/71 09/06/23 08:19 Pulse Ox 96 09/06/23 08:19 FiO2 Intake & Output 09/05/23 09/06/23 09/06/23 18:59 06:59 18:59 Intake Total 598 480 Output Total 2350 2300 700 Balance -1752 -2300 -220 Weight 84.3 kg Intake: Oral 598 480 Output: Urine 2350 2300 700 Other: Voiding Method Indwelling Catheter Indwelling Catheter Indwelling Catheter # Bowel Movements 0 - Exam Awake, comfortable, no acute distress. Alert and oriented x3 Lungs show decreased breath sounds at bases CVS S1 and S2 Abdomen is soft, nontender. Extremities show 3+ edema bilaterally. ZONING ASSISTANT exam is intact. - Labs CBC & Chem 7: 09/06/23 07:49 09/06/23 07:49 Labs: Abnormal Lab Results - Last 24 Hours (Table) 09/05/23 09/05/23 09/06/23 Range/Units 16:08 19:37 06:14 RBC (4.30-5.90) m/uL Hgb (13.0-17.5) gm/dL Hct (39.0-53.0) % MCV (80.0-100.0) fL MCHC (31.0-37.0) g/dL BUN (9-20) mg/dL Creatinine (0.66-1.25) mg/dL Glucose (74-99) mg/dL POC Glucose (mg/dL) 304 H 349 H 331 H (70-110) mg/dL Calcium (8.4-10.2) mg/dL Magnesium (1.6-2.3) mg/dL 09/06/23 09/06/23 09/06/23 Range/Units 07:49 07:49 11:23 RBC 2.50 L (4.30-5.90) m/uL Hgb 7.7 L (13.0-17.5) gm/dL Hct 25.1 L (39.0-53.0) % MCV 100.3 H (80.0-100.0) fL MCHC 30.6 L (31.0-37.0) g/dL BUN 87 H (9-20) mg/dL Creatinine 3.71 H (0.66-1.25) mg/dL Glucose 253 H (74-99) mg/dL POC Glucose (mg/dL) 137 H (70-110) mg/dL Calcium 8.2 L (8.4-10.2) mg/dL Magnesium 1.4 L (1.6-2.3) mg/dL Assessment and Plan Assessment: 1. Acute kidney injury, most likely cardiorenal with an element of ATN. Currently nonoliguric. Patient is being diuresed. The UA shows 1+ protein. Previous creatinine 1.7 on 10/08/2019. Per patient his GFR was around 30 about 4 weeks ago. Tacrolimus level is 8.5. No obstruction on USS. 2. Status post simultaneous kidney pancreas transplant with failed pancreatic transplant and functioning kidney transplant with chronic kidney disease NKF stage IIIB to 4. Maintained on prednisone Prograf and CellCept. Tacrolimus was 8.5 therefore dose will be decreased slightly. 3. 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 4. Hyperkalemia associated with use of tacrolimus along with metabolic acidosis and acute kidney injury. Rule out GI bleed. 5. Anemia, iron replete, no obvious bleeding noted. 6. Volume overload currently being diuresed. EF 45-50% Plan: Switch to Lasix drip for about 24 hours Decrease Prograf to 2 mg twice a day Continue with oral sodium bicarb Add Aranesp Repeat labs in a.m. May continue with Koroma catheter for now. Treat constipation. Discussed RT with patient. Will continue to assess on a daily basis.
[2023-09-06] MEDS: NYSTATIN 100,000 UNIT/GM POWD 15 GM TOPICAL SCH ×3 (12:47→22:01)
--- NOTE | 2023-09-06 15:53 | P.PN ---
Subjective HISTORY OF PRESENT ILLNESS: This is a 58-year-old male with a past medical history significant for coronary artery disease hypertension, hyperlipidemia, subacute CVA, diabetes, peripheral vascular disease and kidney and pancreatic transplant in 2012 in [place]. Patient does not follow with a erecting crane operator. We have been asked to see the patient in consultation for congestive heart failure. The patient lives in [place] and states he is in [place] for hunting. He has had lower extremity edema for the past 1-1/2 weeks. He states he has occasional shortness of breath. No chest pain. He has had swelling in the past in his lower legs but not this severe. Patient is currently on IV Lasix 60 mg every 12 hours and nephrology is following. EKG reveals sinus rhythm. Chest xray small bilateral pleural effusions which are new. Given cardiomegaly and some pulmonary edema, correlate for congestive heart failure Venous Doppler: Negative for DVT bilaterally Laboratory data: WBC 5.7. Hemoglobin 8.0. Platelet count 169. Sodium 138. Potassium 6.5. BUN 94. Creatinine 4.02. Troponin 0.032. ProBNP 64,900. Current home cardiac medications include Lipitor 40 mg at night, losartan 25 mg daily, Plavix 75 mg daily, carvedilol 25 mg twice a day, hydralazine 100 mg 3 times a day Most recent echocardiogram obtained in September 2019 revealing ejection fraction 55-60%, mild MR, mild TR Echocardiogram performed in [place] 05/29/2023, reveals EF 50-55% with mild hypokinesis of the basal to mild anterior lateral and basal to mid inferior lateral monsalve grade 2 diastolic dysfunction mild left atrial enlargement, aortic sclerosis without stenosis with MR, RVSP 38 mmHg, mild TR. 09/05 Patient is seen today in follow-up. He states his breathing is okay and he does not have any chest pain. His only concern is about the lower extremity edema which she continues to have and it slowly improving. Koroma catheter in place. Patient relates today that he did have stents done to his heart year ago. Echocardiogram reveals EF of 45-50%. Mid to basal inferior wall hypokinetic. RVSP 46 mmHg. Moderate TR. Renal ultrasound revealed no obstructive uropathy. Repeat blood work reveals hemoglobin of 7.8, BUN 91 creatinine 3.97, potassium 5.4. Patient is currently on Lasix 60 mg IV every 12 hours. 09/06 Patient seen and examined. Patient continues good urine output -4 L yesterday. Denies chest pain or pressure. Creatinine remains stable 3.7. Blood pressures 120s and 130s. PHYSICAL EXAM: VITAL SIGNS: Reviewed. GENERAL: Well-developed in no acute distress. HEENT: Head is normocephalic. Pupils are equal, round. Sclerae anicteric. No JVD or thyromegaly LUNGS: Decreased breath sounds at the bases. Lungs essentially clear to auscul tation bilaterally. HEART: Regular rate and rhythm. S1 and S2 heard. ABDOMEN: Soft. Nondistended. Nontender. EXTREMITIES: No clubbing or cyanosis. Peripheral pulses intact. 2-3+ lower extremity edema NEUROLOGIC: Awake and alert. Oriented x 3. ASSESSMENT: Volume overload secondary to acute renal failure proBNP 64,900 Hyperkalemia Acute on chronic renal failure History of coronary artery disease with previous stent 1 year ago Hypertension Hyperlipidemia History of subacute CVA, on Plavix outpatient Diabetes History of kidney and pancreatic transplant in 2013, in [place] Anemia Acute on chronic diastolic heart failure, left ventricular EF 45-50% PLAN: Continue IV Lasix. May consider addition of Zaroxolyn however has been having good urine output. Monitor I&O, daily weights, electrolytes and renal function Further recommendations pending patient's progress Objective - Vital Signs Vital signs: Vital Signs Temp 98.3 F 09/06/23 08:19 Pulse 70 09/06/23 13:31 Resp 20 09/06/23 13:31 BP 135/67 09/06/23 12:00 Pulse Ox 94 L 09/06/23 12:00 FiO2 Intake & Output 09/05/23 09/06/23 09/06/23 18:59 06:59 18:59 Intake Total 598 800 Output Total 2350 2300 700 Balance -1752 -2300 100 Weight 84.3 kg Intake: Oral 598 800 Output: Urine 2350 2300 700 Other: Voiding Method Indwelling Catheter Indwelling Catheter Indwelling Catheter # Bowel Movements 0 - Labs CBC & Chem 7: 09/06/23 07:49 09/06/23 07:49 Labs: Abnormal Lab Results - Last 24 Hours (Table) 09/05/23 09/05/23 09/06/23 Range/Units 16:08 19:37 06:14 RBC (4.30-5.90) m/uL Hgb (13.0-17.5) gm/dL Hct (39.0-53.0) % MCV (80.0-100.0) fL MCHC (31.0-37.0) g/dL BUN (9-20) mg/dL Creatinine (0.66-1.25) mg/dL Glucose (74-99) mg/dL POC Glucose (mg/dL) 304 H 349 H 331 H (70-110) mg/dL Calcium (8.4-10.2) mg/dL Magnesium (1.6-2.3) mg/dL 09/06/23 09/06/23 09/06/23 Range/Units 07:49 07:49 11:23 RBC 2.50 L (4.30-5.90) m/uL Hgb 7.7 L (13.0-17.5) gm/dL Hct 25.1 L (39.0-53.0) % MCV 100.3 H (80.0-100.0) fL MCHC 30.6 L (31.0-37.0) g/dL BUN 87 H (9-20) mg/dL Creatinine 3.71 H (0.66-1.25) mg/dL Glucose 253 H (74-99) mg/dL POC Glucose (mg/dL) 137 H (70-110) mg/dL Calcium 8.2 L (8.4-10.2) mg/dL Magnesium 1.4 L (1.6-2.3) mg/dL
[2023-09-06] MEDS ORDERED: FUROSEMIDE 10 MG/ML 10 ML VIAL IV SCH (16:00)
[2023-09-06 16:22] LABS: Glucose,Whole Blood 204 mg/dL (70-110)
[2023-09-06] MEDS: Insulin Aspart (For Pump) 100 UNIT/ML VIAL SQ-PUMP SCH (16:52)
[2023-09-06] MEDS: FUROSEMIDE 100 MG in SODIUM CHLORIDE 0.9% 90 ML IV SCH (18:25)
--- NOTE | 2023-09-06 19:30 | P.PN ---
Subjective Progress Note Date: 09/06/23 (delayed charting seen at 1030) Patient is a 58 -year-old male with history of diabetes currently on insulin pump status post pancreatic transplant, end-stage renal disease, CVA, coronary artery disease status post 2 stents, and multiple other comorbid conditions who presented with concerns about inguinal hernia is due to increased edema in his scrotal area and lower extremities. In the ER he underwent an extensive evaluation. On arrival his vital signs within normal limits. Laboratory analysis included CBC, coags, basic metabolic profile, AST, ALT, troponin, and BNP which was remarkable for hemoglobin 6, potassium 6.5, chloride 112, carbon dioxide 16, BUN 94, creatinine 4.02, glucose 252, troponin 0.032, and BNP 64,900. In the ER he was given temporizing measures for his hyperkalem ia including IV insulin, calcium gluconate, and albuterol. Arrangements were made for admission. Case was discussed with nephrology. He required multiple doses of Lasix and lokalema for improvement in his potassium. He had good diuresis with lasix 60 mg IVP. His echo showed EF of 45-50%. Patient seen and examined at bedside. He has no complaints. He is still having some swelling, breathing is doing well. Vital signs reviewed General: nontoxic, no distress, appears at stated age Cardiovascular: S1S2 reg, no murmur, positive posterior tibial pulse bilateral, Lungs: Coarse breath sounds bilateral, no rhonchi, no rales , no accessory muscle use Abdominal: soft, nontender to palpation, no guarding, no appreciable organomegaly Ext: no gross muscle atrophy, 4+ lower extremity edema, no contractures Neuro: CN II-XI grossly intact, no focal neuro deficits Psych: Alert, oriented, appropriate affect Assessment/Plan: Acute fluid overload suspect secondary to congestive systolic and diastolic heart failure, EF 45-50% Acute kidney injury on probable chronic kidney disease status post renal transplant Hyperkalemia, resolved Non-anion gap metabolic acidosis, resolved -Cardiology note reviewed: Continue with Lasix, consider adding Zaroxolyn the patient has been having good urine output. -Nephrology note reviewed. Switch to Lasix drips for 24-hour, decrease Prograf to 2 mg twice daily, add Aranesp, continue with Arias- I had increased Lasix to 40 IV TID but then nephrology recommended lasix gtt. - Renal US without obstructive uropathy - Strict I and O, daily weights -tacrolimus 2 mg at night and 2 mg in the morning, mycophenolate 720 mg twice daily, sodium bicarb 1300 mg 3 times daily, and prednisone 5 mg daily -Continue to hold Cozaar given hyperkalemia -Repeat BMP in a.m. Diabetes mellitus type 1, insulin requiring status post pancreatic transplant -Accu-Cheks every before meals and at bedtime, A1C 7.9, patient to continue with his home insulin pump. We will continue to monitor Accu-Cheks despite him having a [employer] Kathleen monitor to ensure there are no signs of insulin toxicity such as hypoglycemia. Coronary artery disease History of CVA Dyslipidemia -Plavix 75 mg daily, Coreg 25 mg oral daily, hydralazine 100 mg oral 3 times daily Imaging: None new from today Echo- EF 45-50% with basal inferior wall hypokinesis, RVSP 46. Renal US: No evidence of obstructive uropathy, arias in place Data Review: Labs reviewed from today include CBC, basic metabolic profile, hemoglobin A1c and magnesium which are remarkable for BUN 87, creatinine 3.71, glucose 253, hemoglobin 7.7, magnesium 1.4, hemoglobin 7.7, A1c 7.9 DVT prophylaxis: Hepairn Anticipated discharge date: Pending Clinical Course Anticipated discharge place: Pending Clinical Course This dictation was prepared using [employer] voice recognition software. Though every attempt is made to correct errors during dictation some may still exist. Objective - Vital Signs Vital signs: Vital Signs Temp 98.3 F 09/06/23 08:19 Pulse 64 09/06/23 16:00 Resp 20 09/06/23 16:00 BP 138/69 09/06/23 16:00 Pulse Ox 93 L 09/06/23 16:00 FiO2 Intake & Output 09/06/23 09/06/23 09/07/23 06:59 18:59 06:59 Intake Total 1120 Output Total 2300 2300 Balance -2300 -1180 Weight 84.3 kg Intake: Oral 1120 Output: Urine 2300 2300 Other: Voiding Method Indwelling Catheter Indwelling Catheter # Bowel Movements 0 - Labs CBC & Chem 7: 09/06/23 07:49 09/06/23 07:49 Labs: Abnormal Lab Results - Last 24 Hours (Table) 09/05/23 09/06/23 09/06/23 Range/Units 19:37 06:14 07:49 RBC (4.30-5.90) m/uL Hgb (13.0-17.5) gm/dL Hct (39.0-53.0) % MCV (80.0-100.0) fL MCHC (31.0-37.0) g/dL BUN (9-20) mg/dL Creatinine (0.66-1.25) mg/dL Glucose (74-99) mg/dL POC Glucose (mg/dL) 349 H 331 H (70-110) mg/dL Hemoglobin A1c 7.9 H (<=6.0) % Calcium (8.4-10.2) mg/dL Magnesium (1.6-2.3) mg/dL 09/06/23 09/06/23 09/06/23 Range/Units 07:49 07:49 11:23 RBC 2.50 L (4.30-5.90) m/uL Hgb 7.7 L (13.0-17.5) gm/dL Hct 25.1 L (39.0-53.0) % MCV 100.3 H (80.0-100.0) fL MCHC 30.6 L (31.0-37.0) g/dL BUN 87 H (9-20) mg/dL Creatinine 3.71 H (0.66-1.25) mg/dL Glucose 253 H (74-99) mg/dL POC Glucose (mg/dL) 137 H (70-110) mg/dL Hemoglobin A1c (<=6.0) % Calcium 8.2 L (8.4-10.2) mg/dL Magnesium 1.4 L (1.6-2.3) mg/dL 09/06/23 Range/Units 16:20 RBC (4.30-5.90) m/uL Hgb (13.0-17.5) gm/dL Hct (39.0-53.0) % MCV (80.0-100.0) fL MCHC (31.0-37.0) g/dL BUN (9-20) mg/dL Creatinine (0.66-1.25) mg/dL Glucose (74-99) mg/dL POC Glucose (mg/dL) 204 H (70-110) mg/dL Hemoglobin A1c (<=6.0) % Calcium (8.4-10.2) mg/dL Magnesium (1.6-2.3) mg/dL
[2023-09-06 20:37] LABS: Glucose,Whole Blood 258 mg/dL (70-110)
[2023-09-06] MEDS: ATORVASTATIN 40 MG TAB PO SCH (22:00)
[2023-09-07 05:58] LABS: Glucose,Whole Blood 207 mg/dL (70-110)
[2023-09-07 07:32] LABS: HCT 23.9 % (39.0-53.0); HGB 7.6 gm/dL (13.0-17.5); Hypochromasia Moderate; MCH 31.4 pg (25.0-35.0); Mean Platelet Volume 7.9; Platelet Count 191 k/uL (150-450); RBC 2.43 m/uL (4.30-5.90); RDW 14.2 % (11.5-15.5); WBC 6.1 k/uL (3.8-10.6)
[2023-09-07 07:48] LABS: African American GFR (CKD) 20 (>60 ml/min/1.73 sqM); Anion Gap 12 mmol/L; Blood Urea Nitrogen 86 mg/dL (9-20); Calcium 8.4 mg/dL (8.4-10.2); Carbon Dioxide 20 mmol/L (22-30); Chloride 104 mmol/L (98-107); Glucose 187 mg/dL (74-99); Non-African American GFR(CKD) 17 (>60 ml/min/1.73 sqM); Potassium 4.6 mmol/L (3.5-5.1); Sodium 136 mmol/L (137-145)
[2023-09-07] MEDS: HEPARIN SODIUM,PORCINE 5,000 UNIT/ML 1 ML VIAL SQ SCH ×2 (10:02→17:20)
[2023-09-07] MEDS: hydrALAZINE HCL 50 MG TAB PO SCH ×3 (10:06→21:25)
[2023-09-07] MEDS: CLOPIDOGREL 75 MG TAB PO SCH (10:06)
[2023-09-07] MEDS: PANTOPRAZOLE 40 MG TABLET PO SCH (10:06)
[2023-09-07] MEDS: TACROLIMUS 1 MG CAP PO SCH ×2 (10:06→21:24)
[2023-09-07] MEDS: SODIUM BICARBONATE TAB 650 MG TAB PO SCH ×3 (10:06→21:24)
[2023-09-07] MEDS: MYCOPHENOLATE SODIUM DR 180 MG TABLET.DR PO SCH ×2 (10:07→21:25)
[2023-09-07] MEDS: predniSONE 5 MG TAB PO SCH (10:07)
[2023-09-07] MEDS: METOCLOPRAMIDE 5 MG TAB PO SCH ×3 (10:07→21:25)
[2023-09-07] MEDS: LACTULOSE 20 GM/30 ML CUP PO SCH ×3 (10:07→21:34)
[2023-09-07] MEDS: carvediloL 12.5 MG TAB PO SCH ×2 (10:07→17:23)
--- NOTE | 2023-09-07 11:13 | P.PN ---
Subjective Patient is seen in follow-up for chronic kidney disease and renal transplant management. Renal function stable. On Lasix drip. Nonoliguric. Weight trending down. Denies chest pain or shortness of breath. Vital signs are stable. General: No acute distress. HEENT: Head exam is unremarkable. LUNGS: No audible rhonchi or wheezes. HEART: Rate and Rhythm are regular. ABDOMEN: Nontender. EXTREMITITES: 2+ edema. Lower extremity is wrapped. Objective - Vital Signs Vital signs: Vital Signs Temp 98.1 F 09/07/23 04:00 Pulse 70 09/07/23 04:00 Resp 20 09/07/23 04:00 BP 143/74 09/07/23 04:00 Pulse Ox 93 L 09/07/23 04:00 FiO2 Intake & Output 09/06/23 09/07/23 09/07/23 18:59 06:59 18:59 Intake Total 1120 240 Output Total 2300 1600 800 Balance -1180 -1600 -560 Weight 82.5 kg Intake: Oral 1120 240 Output: Urine 2300 1600 800 Other: Voiding Method Indwelling Catheter Indwelling Catheter # Bowel Movements 1 - Labs CBC & Chem 7: 09/07/23 06:49 09/07/23 06:49 Labs: Abnormal Lab Results - Last 24 Hours (Table) 09/06/23 09/06/23 09/06/23 Range/Units 07:49 11:23 16:20 RBC (4.30-5.90) m/uL Hgb (13.0-17.5) gm/dL Hct (39.0-53.0) % Sodium (137-145) mmol/L Carbon Dioxide (22-30) mmol/L BUN (9-20) mg/dL Creatinine (0.66-1.25) mg/dL Glucose (74-99) mg/dL POC Glucose (mg/dL) 137 H 204 H (70-110) mg/dL Hemoglobin A1c 7.9 H (<=6.0) % 09/06/23 09/07/23 09/07/23 Range/Units 20:34 05:57 06:49 RBC 2.43 L (4.30-5.90) m/uL Hgb 7.6 L (13.0-17.5) gm/dL Hct 23.9 L (39.0-53.0) % Sodium (137-145) mmol/L Carbon Dioxide (22-30) mmol/L BUN (9-20) mg/dL Creatinine (0.66-1.25) mg/dL Glucose (74-99) mg/dL POC Glucose (mg/dL) 258 H 207 H (70-110) mg/dL Hemoglobin A1c (<=6.0) % 09/07/23 Range/Units 06:49 RBC (4.30-5.90) m/uL Hgb (13.0-17.5) gm/dL Hct (39.0-53.0) % Sodium 136 L (137-145) mmol/L Carbon Dioxide 20 L (22-30) mmol/L BUN 86 H (9-20) mg/dL Creatinine 3.66 H (0.66-1.25) mg/dL Glucose 187 H (74-99) mg/dL POC Glucose (mg/dL) (70-110) mg/dL Hemoglobin A1c (<=6.0) % Assessment and Plan Plan: Assessment: 1. Acute kidney injury secondary to ATN secondary to cardiorenal syndrome. Creatinine stable at 3.61 today. Nonoliguric. Tacrolimus level VIII.5. No hyd ronephrosis on ultrasound. 2. Chronic kidney disease stage IIIB/4. 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 3. Status post simultaneous kidney and pancreatic transplant with failed pancreatic transplant and functioning kidney transplant maintained on prednisone, Prograf and CellCept. Prograf level 8.5. Dose decreased. 4. Diabetes mellitus. 5. Volume overload. 6. Acute on chronic systolic CHF with ejection fraction of 45-50% and moderate to severe tricuspid regurgitation. 7. Hypertension with chronic kidney disease. 8. Hypomagnesemia from diuresis. Replace. Better. 9. Anemia of chronic kidney disease maintained on Aranesp. Iron replete. 10. Metabolic acidosis secondary to acute kidney injury maintained on oral bicarb. Plan: Change Lasix drip to IV Lasix 60 mg every 8 hours. Add metolazone 5 mg once daily. Changed to cardiac diet per patient request and had 1500 mL fluid restriction. Strict I's and O's. Avoid nephrotoxins. Continue to monitor renal function and urine output.
[2023-09-07 12:00] LABS: Glucose,Whole Blood 213 mg/dL (70-110)
--- NOTE | 2023-09-07 12:34 | CDI ---
Documentation Clarification Form Date: 09/07/2023 12:10:21 PM From: Apoorva Mendoza RN CCDS Phone: [phone] Admit Date: 09/03/2023 12:47:00 PM Patient Name: Richar Olson Visit Number: [id number] Discharge Date: ATTENTION: The Clinical Documentation Specialists (CDI) and [facility] Coding Staff appreciate your assistance in clarifying documentation. Please respond to the clarification below the line at the bottom and electronically sign. The CDI & [facility] Coding staff will review the response and follow-up if needed. Please note: Queries are made part of the Legal Health Record. If you have any questions, please contact the author of this message via ITS. Dr. Kwasi Ibarra Conflicting documentation is documented in the 09/07, Nephrology. Chronic kidney disease stage IIIB/4. Additional clarification regarding the stage of CKD is requested. History/Risk Factors: 58 year old male presents to the ED with increased edema in his scrotal area and lower extremities. Medical History: CKD, Heart Failure, HTN, pancreatic and renal transplant, Insulin pump, DM2. H&P,09/03. 10/08/2019 Patients Historical BUN 35 CR 1.75 GFR 44 Clinical Indicators: 09/03/2023 Current BUN 94 CR 4.02 GFR: 16 Treatment: Lasix IV Drip, Strict I & Os Metolazone, 1500ml fluid restriction, Reduced Prograf dose, Avoid nephrotoxins. Please clarify the stage of the CKD, if known: [ x ] CKD Stage 3b (GFR 30-44) [ ] CKD Stage 4 (GFR 15-29) [ ] Other, please specify [ ] Unable to determine (Template Last revised: December 2020) MTDD
[2023-09-07] MEDS: FUROSEMIDE 100 MG in SODIUM CHLORIDE 0.9% 90 ML IV SCH (12:46)
[2023-09-07] MEDS: NYSTATIN 100,000 UNIT/GM POWD 15 GM TOPICAL SCH ×3 (12:46→21:26)
[2023-09-07] MEDS: FUROSEMIDE 10 MG/ML 10 ML VIAL IV SCH ×2 (13:11→17:20)
[2023-09-07] MEDS: metOLazone 5 MG TAB PO SCH (13:12)
--- NOTE | 2023-09-07 15:30 | P.PN ---
Subjective Progress Note Date: 09/07/23 HISTORY OF PRESENT ILLNESS: This is a 58-year-old male with a past medical history significant for coronary artery disease hypertension, hyperlipidemia, subacute CVA, diabetes, peripheral vascular disease and kidney and pancreatic transplant in 2012 in [place]. Patient does not follow with a field marketing director. We have been asked to see the patient in consultation for congestive heart failure. The patient lives in [place] and states he is in [place] for hunting. He has had lower extremity edema for the past 1-1/2 weeks. He states he has occasional shortness of breath. No chest pain. He has had swelling in the past in his lower legs but not this severe. Patient is currently on IV Lasix 60 mg every 12 hours and nephrology is following. EKG reveals sinus rhythm. Chest xray small bilateral pleural effusions which are new. Given cardiomegaly and some pulmonary edema, correlate for congestive heart failure Venous Doppler: Negative for DVT bilaterally Laboratory data: WBC 5.7. Hemoglobin 8.0. Platelet count 169. Sodium 138. Potassium 6.5. BUN 94. Creatinine 4.02. Troponin 0.032. ProBNP 64,900. Current home cardiac medications include Lipitor 40 mg at night, losartan 25 mg daily, Plavix 75 mg daily, carvedilol 25 mg twice a day, hydralazine 100 mg 3 times a day Most recent echocardiogram obtained in September 2019 revealing ejection fraction 55-60%, mild MR, mild TR Echocardiogram performed in [place] 05/29/2023, reveals EF 50-55% with mild hypokinesis of the basal to mild anterior lateral and basal to mid inferior lateral monsalve grade 2 diastolic dysfunction mild left atrial enlargement, aortic sclerosis without stenosis with MR, RVSP 38 mmHg, mild TR. 09/05 Patient is seen today in follow-up. He states his breathing is okay and he does not have any chest pain. His only concern is about the lower extremity edema which she continues to have and it slowly improving. Koroma catheter in place. Patient relates today that he did have stents done to his heart year ago. Ec hocardiogram reveals EF of 45-50%. Mid to basal inferior wall hypokinetic. RVSP 46 mmHg. Moderate TR. Renal ultrasound revealed no obstructive uropathy. Repeat blood work reveals hemoglobin of 7.8, BUN 91 creatinine 3.97, potassium 5.4. Patient is currently on Lasix 60 mg IV every 12 hours. 09/06 Patient seen and examined. Patient continues good urine output 4 L yesterday and contiues to diurese well today. Denies chest pain or pressure. He states he feels more relaxed. Creatinine remains stable 3.7. Blood pressures 120s and 130s. Patient continued on IV Lasix. PHYSICAL EXAM: VITAL SIGNS: Reviewed. GENERAL: Well-developed in no acute distress. HEENT: Head is normocephalic. Pupils are equal, round. Sclerae anicteric. No JVD or thyromegaly LUNGS: Decreased breath sounds at the bases. Lungs essentially clear to auscultation bilaterally. HEART: Regular rate and rhythm. S1 and S2 heard. ABDOMEN: Soft. Nondistended. Nontender. EXTREMITIES: No clubbing or cyanosis. Peripheral pulses intact. 2-3+ lower extremity edema NEUROLOGIC: Awake and alert. Oriented x 3. ASSESSMENT: Volume overload secondary to acute renal failure proBNP 64,900 Hyperkalemia Acute on chronic renal failure History of coronary artery disease with previous stent 1 year ago Hypertension Hyperlipidemia History of subacute CVA, on Plavix outpatient Diabetes History of kidney and pancreatic transplant in 2012, in [place] Anemia Acute on chronic diastolic heart failure, left ventricular EF 45-50% PLAN: Continue IV Lasix. May consider addition of Zaroxolyn however has been having good urine output. Monitor I&O, daily weights, electrolytes and renal function Further recommendations pending patient's progress Nurse practitioner note has been reviewed, I agree with the documented findings and plan of care. Patient was seen and examined. Objective - Vital Signs Vital signs: Vital Signs Temp 98.1 F 09/07/23 04:00 Pulse 70 09/07/23 08:00 Resp 20 09/07/23 08:00 BP 143/74 09/07/23 04:00 Pulse Ox 93 L 09/07/23 04:00 FiO2 Intake & Output 09/06/23 09/07/23 09/07/23 18:59 06:59 18:59 Intake Total 1120 240 Output Total 2300 1600 2100 Balance -1180 -1600 -1860 Weight 82.5 kg Intake: Oral 1120 240 Output: Urine 2300 1600 2100 Other: Voiding Method Indwelling Catheter Indwelling Catheter Indwelling Catheter # Bowel Movements 1 - Labs CBC & Chem 7: 09/07/23 06:49 09/07/23 06:49 Labs: Abnormal Lab Results - Last 24 Hours (Table) 09/06/23 09/06/23 09/06/23 Range/Units 07:49 16:20 20:34 RBC (4.30-5.90) m/uL Hgb (13.0-17.5) gm/dL Hct (39.0-53.0) % Sodium (137-145) mmol/L Carbon Dioxide (22-30) mmol/L BUN (9-20) mg/dL Creatinine (0.66-1.25) mg/dL Glucose (74-99) mg/dL POC Glucose (mg/dL) 204 H 258 H (70-110) mg/dL Hemoglobin A1c 7.9 H (<=6.0) % 09/07/23 09/07/23 09/07/23 Range/Units 05:57 06:49 06:49 RBC 2.43 L (4.30-5.90) m/uL Hgb 7.6 L (13.0-17.5) gm/dL Hct 23.9 L (39.0-53.0) % Sodium 136 L (137-145) mmol/L Carbon Dioxide 20 L (22-30) mmol/L BUN 86 H (9-20) mg/dL Creatinine 3.66 H (0.66-1.25) mg/dL Glucose 187 H (74-99) mg/dL POC Glucose (mg/dL) 207 H (70-110) mg/dL Hemoglobin A1c (<=6.0) % 09/07/23 Range/Units 11:52 RBC (4.30-5.90) m/uL Hgb (13.0-17.5) gm/dL Hct (39.0-53.0) % Sodium (137-145) mmol/L Carbon Dioxide (22-30) mmol/L BUN (9-20) mg/dL Creatinine (0.66-1.25) mg/dL Glucose (74-99) mg/dL POC Glucose (mg/dL) 213 H (70-110) mg/dL Hemoglobin A1c (<=6.0) %
[2023-09-07 16:11] LABS: Glucose,Whole Blood 256 mg/dL (70-110)
--- NOTE | 2023-09-07 16:58 | P.PN ---
Subjective Progress Note Date: 09/07/23 (delayed charting seen at 1030) Patient is a 58 -year-old male with history of diabetes currently on insulin pump status post pancreatic transplant, end-stage renal disease, CVA, coronary artery disease status post 2 stents, and multiple other comorbid conditions who presented with concerns about inguinal hernia is due to increased edema in his scrotal area and lower extremities. In the ER he underwent an extensive evaluation. On arrival his vital signs within normal limits. Laboratory analysis included CBC, coags, basic metabolic profile, AST, ALT, troponin, and BNP which was remarkable for hemoglobin 6, potassium 6.5, chloride 112, carbon dioxide 16, BUN 94, creatinine 4.02, glucose 252, troponin 0.032, and BNP 64,900. In the ER he was given temporizing measures for his hyperkalem ia including IV insulin, calcium gluconate, and albuterol. Arrangements were made for admission. Case was discussed with nephrology. He required multiple doses of Lasix and lokalema for improvement in his potassium. He had good diuresis with lasix 60 mg IVP BID. His echo showed EF of 45-50%. Patient seen and examined at bedside. He is having some improvement in lower extremity edema. He has no difficulty breathing. He has no other complaints currently other than being on the continuous infusion of Lasix and not liking this. He is asking to go back to IV push Lasix. Vital signs reviewed General: nontoxic, no distress, appears at stated age Cardiovascular: S1S2 reg, no murmur, positive posterior tibial pulse bilateral, Lungs: Coarse breath sounds bilateral, no rhonchi, no rales , no accessory muscle use Abdominal: soft, nontender to palpation, no guarding, no appreciable organo megaly Ext: no gross muscle atrophy, 4+ lower extremity edema, no contractures Neuro: CN II-XI grossly intact, no focal neuro deficits Psych: Alert, oriented, appropriate affect Assessment/Plan: Acute fluid overload suspect secondary to congestive systolic and diastolic heart failure, EF 45-50% Acute kidney injury on probable chronic kidney disease status post renal transplant Hyperkalemia, resolved Non-anion gap metabolic acidosis, resolved Chronic kidney disease stage 3/4 Anemia of chronic kidney disease -Case discussed with Dr. Ibarra. Transition back to IV Lasix 60 every 8 hours. Add metolazone 5 mg daily -Cardiology note reviewed: Consider addition of Zaroxolyn. - Renal US without obstructive uropathy - Strict I and O, daily weights -tacrolimus 2 mg at night and 2 mg in the morning, mycophenolate 720 mg twice daily, sodium bicarb 1300 mg 3 times daily, and prednisone 5 mg daily -Continue to hold Cozaar given hyperkalemia -Repeat BMP in a.m. Diabetes mellitus type 1, insulin requiring status post pancreatic transplant -Accu-Cheks every before meals and at bedtime, A1C 7.9, patient to continue with his home insulin pump. We will continue to monitor Accu-Cheks despite him having a [facility] monitor to ensure there are no signs of insulin toxicity such as hypoglycemia. Coronary artery disease History of CVA Dyslipidemia -Plavix 75 mg daily, Coreg 25 mg oral daily, hydralazine 100 mg oral 3 times daily Imaging: None new from today Course: Echo- EF 45-50% with basal inferior wall hypokinesis, RVSP 46. Renal US: No evidence of obstructive uropathy, arias in place Data Review: Labs reviewed from today are CBC, basic metabolic profile, and magnesium which are remarkable for hemoglobin 7.6, sodium 136, BUN 86, creatinine 3.66 DVT prophylaxis: Hepairn Anticipated discharge date: Pending Clinical Course Anticipated discharge place: Pending Clinical Course This dictation was prepared using [employer] voice recognition software. Though every attempt is made to correct errors during dictation some may still exist. Objective - Vital Signs Vital signs: Vital Signs Temp 97.9 F 09/07/23 12:00 Pulse 67 09/07/23 14:00 Resp 20 09/07/23 14:00 BP 128/64 09/07/23 12:00 Pulse Ox 96 09/07/23 12:00 FiO2 Intake & Output 09/06/23 09/07/23 09/07/23 18:59 06:59 18:59 Intake Total 1120 480 Output Total 2300 1600 2850 Balance -1180 -1600 -2370 Weight 82.5 kg Intake: Oral 1120 480 Output: Urine 2300 1600 2850 Other: Voiding Method Indwelling Catheter Indwelling Catheter Indwelling Catheter # Bowel Movements 1 - Labs CBC & Chem 7: 09/07/23 06:49 09/07/23 06:49 Labs: Abnormal Lab Results - Last 24 Hours (Table) 09/06/23 09/06/23 09/07/23 Range/Units 07:49 20:34 05:57 RBC (4.30-5.90) m/uL Hgb (13.0-17.5) gm/dL Hct (39.0-53.0) % Sodium (137-145) mmol/L Carbon Dioxide (22-30) mmol/L BUN (9-20) mg/dL Creatinine (0.66-1.25) mg/dL Glucose (74-99) mg/dL POC Glucose (mg/dL) 258 H 207 H (70-110) mg/dL Hemoglobin A1c 7.9 H (<=6.0) % 09/07/23 09/07/23 09/07/23 Range/Units 06:49 06:49 11:52 RBC 2.43 L (4.30-5.90) m/uL Hgb 7.6 L (13.0-17.5) gm/dL Hct 23.9 L (39.0-53.0) % Sodium 136 L (137-145) mmol/L Carbon Dioxide 20 L (22-30) mmol/L BUN 86 H (9-20) mg/dL Creatinine 3.66 H (0.66-1.25) mg/dL Glucose 187 H (74-99) mg/dL POC Glucose (mg/dL) 213 H (70-110) mg/dL Hemoglobin A1c (<=6.0) % 09/07/23 Range/Units 16:09 RBC (4.30-5.90) m/uL Hgb (13.0-17.5) gm/dL Hct (39.0-53.0) % Sodium (137-145) mmol/L Carbon Dioxide (22-30) mmol/L BUN (9-20) mg/dL Creatinine (0.66-1.25) mg/dL Glucose (74-99) mg/dL POC Glucose (mg/dL) 256 H (70-110) mg/dL Hemoglobin A1c (<=6.0) %
[2023-09-07] MEDS: Insulin Aspart (For Pump) 100 UNIT/ML VIAL SQ-PUMP SCH (17:19)
[2023-09-07 20:20] LABS: Glucose,Whole Blood 228 mg/dL (70-110)
[2023-09-07] MEDS: ATORVASTATIN 40 MG TAB PO SCH (21:26)
[2023-09-08] MEDS: HEPARIN SODIUM,PORCINE 5,000 UNIT/ML 1 ML VIAL SQ SCH ×3 (00:20→16:31)
[2023-09-08] MEDS: FUROSEMIDE 10 MG/ML 10 ML VIAL IV SCH ×3 (00:21→16:39)
[2023-09-08 06:20] LABS: Glucose,Whole Blood 220 mg/dL (70-110)
[2023-09-08] MEDS: hydrALAZINE HCL 50 MG TAB PO SCH ×3 (09:28→21:58)
[2023-09-08] MEDS: CLOPIDOGREL 75 MG TAB PO SCH (09:28)
[2023-09-08] MEDS: METOCLOPRAMIDE 5 MG TAB PO SCH ×3 (09:28→21:58)
[2023-09-08] MEDS: SODIUM BICARBONATE TAB 650 MG TAB PO SCH ×3 (09:28→21:58)
[2023-09-08] MEDS: TACROLIMUS 1 MG CAP PO SCH ×2 (09:28→21:58)
[2023-09-08] MEDS: carvediloL 12.5 MG TAB PO SCH ×2 (09:28→16:40)
[2023-09-08] MEDS: PANTOPRAZOLE 40 MG TABLET PO SCH (09:28)
[2023-09-08] MEDS: MYCOPHENOLATE SODIUM DR 180 MG TABLET.DR PO SCH ×2 (09:29→21:58)
[2023-09-08] MEDS: metOLazone 5 MG TAB PO SCH (09:30)
[2023-09-08] MEDS: predniSONE 5 MG TAB PO SCH (09:31)
[2023-09-08] MEDS: LACTULOSE 20 GM/30 ML CUP PO SCH (09:31)
[2023-09-08] MEDS ORDERED: LACTULOSE 20 GM/30 ML CUP PO PRN (09:37)
[2023-09-08] MEDS: NYSTATIN 100,000 UNIT/GM POWD 15 GM TOPICAL SCH ×3 (09:37→21:58)
[2023-09-08 09:45] LABS: African American GFR (CKD) 20 (>60 ml/min/1.73 sqM); Anion Gap 12 mmol/L; Blood Urea Nitrogen 93 mg/dL (9-20); Calcium 8.3 mg/dL (8.4-10.2); Carbon Dioxide 23 mmol/L (22-30); Chloride 101 mmol/L (98-107); Glucose 190 mg/dL (74-99); Magnesium 1.8 mg/dL (1.6-2.3); Non-African American GFR(CKD) 18 (>60 ml/min/1.73 sqM); Potassium 4.9 mmol/L (3.5-5.1); Sodium 136 mmol/L (137-145)
[2023-09-08 11:32] LABS: Glucose,Whole Blood 214 mg/dL (70-110)
--- NOTE | 2023-09-08 11:51 | P.PN ---
Subjective Progress Note Date: 09/08/23 HISTORY OF PRESENT ILLNESS: This is a 58-year-old male with a past medical history significant for coronary artery disease hypertension, hyperlipidemia, subacute CVA, diabetes, peripheral vascular disease and kidney and pancreatic transplant in 2012 in [place]. 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 We have been asked to see the patient in consultation for congestive heart failure. The patient lives in [place] and states he is in [place] for hunting. He has had lower extremity edema for the past 1-1/2 weeks. He states he has occasional shortness of breath. No chest pain. He has had swelling in the past in his lower legs but not this severe. Patient is currently on IV Lasix 60 mg every 12 hours and nephrology is following. EKG reveals sinus rhythm. Chest xray small bilateral pleural effusions which are new. Given cardiomegaly and some pulmonary edema, correlate for congestive heart failure Venous Doppler: Negative for DVT bilaterally Laboratory data: WBC 5.7. Hemoglobin 8.0. Platelet count 169. Sodium 138. Potassium 6.5. BUN 94. Creatinine 4.02. Troponin 0.032. ProBNP 64,900. Current home cardiac medications include Lipitor 40 mg at night, losartan 25 mg daily, Plavix 75 mg daily, carvedilol 25 mg twice a day, hydralazine 100 mg 3 times a day Most recent echocardiogram obtained in September 2019 revealing ejection fraction 55-60%, mild MR, mild TR Echocardiogram performed in [place] 05/29/2023, reveals EF 50-55% with mild hypokinesis of the basal to mild anterior lateral and basal to mid inferior lateral monsalve grade 2 diastolic dysfunction mild left atrial enlargement, aortic sclerosis without stenosis with MR, RVSP 38 mmHg, mild TR. 09/05 Patient is seen today in follow-up. He states his breathing is okay and he does not have any chest pain. His only concern is about the lower extremity edema which she continues to have and it slowly improving. Koroma catheter in place. Patient relates today that he did have stents done to his heart year ago. Ec hocardiogram reveals EF of 45-50%. Mid to basal inferior wall hypokinetic. RVSP 46 mmHg. Moderate TR. Renal ultrasound revealed no obstructive uropathy. Repeat blood work reveals hemoglobin of 7.8, BUN 91 creatinine 3.97, potassium 5.4. Patient is currently on Lasix 60 mg IV every 12 hours. 09/06 Patient seen and examined. Patient continues good urine output 4 L yesterday and contiues to diurese well today. Denies chest pain or pressure. He states he feels more relaxed. Creatinine remains stable 3.7. Blood pressures 120s and 130s. Patient continued on IV Lasix. 09/08 Patient has been continued on IV Lasix 60 mg every 8 hours. He continues to diurese well, slow improvement of the lower extremity edema. He has a negative fluid balance of 4000 miles. Weight is down 4 kg since admission. Renal function is improving slowly. BUN 93 creatinine 3.62, potassium 4.9. PHYSICAL EXAM: VITAL SIGNS: Reviewed. GENERAL: Well-developed in no acute distress. HEENT: Head is normocephalic. Pupils are equal, round. Sclerae anicteric. No JVD or thyromegaly LUNGS: Decreased breath sounds at the bases. Lungs essentially clear to auscultation bilaterally. HEART: Regular rate and rhythm. S1 and S2 heard. ABDOMEN: Soft. Nondistended. Nontender. EXTREMITIES: No clubbing or cyanosis. Peripheral pulses intact. 2-3+ lower extremity edema NEUROLOGIC: Awake and alert. Oriented x 3. ASSESSMENT: Volume overload secondary to acute renal failure proBNP 64,900 Hyperkalemia Acute on chronic renal failure History of coronary artery disease with previous stent 1 year ago Hypertension Hyperlipidemia History of subacute CVA, on Plavix outpatient Diabetes History of kidney and pancreatic transplant in 2013, in [place] Anemia Acute on chronic diastolic heart failure, left ventricular EF 45-50% PLAN: Continue IV Lasix. Monitor I&O, daily weights, electrolytes and renal function Further recommendations pending patient's progress Nurse practitioner note has been reviewed, I agree with the documented findings and plan of care. Patient was seen and examined. Objective - Vital Signs Vital signs: Vital Signs Temp 97.7 F 09/08/23 04:00 Pulse 70 09/08/23 08:50 Resp 16 09/08/23 08:50 BP 130/58 09/08/23 08:50 Pulse Ox 96 09/08/23 08:50 FiO2 Intake & Output 09/07/23 09/08/23 09/08/23 18:59 06:59 18:59 Intake Total 660 240 Output Total 3350 1700 600 Balance -2690 -1700 -360 Weight 79.4 kg Intake: Oral 660 240 Output: Urine 3350 1700 600 Other: Voiding Method Indwelling Catheter Indwelling Catheter - Labs CBC & Chem 7: 09/07/23 06:49 09/08/23 08:35 Labs: Abnormal Lab Results - Last 24 Hours (Table) 09/07/23 09/07/23 09/07/23 Range/Units 11:52 16:09 20:19 Sodium (137-145) mmol/L BUN (9-20) mg/dL Creatinine (0.66-1.25) mg/dL Glucose (74-99) mg/dL POC Glucose (mg/dL) 213 H 256 H 228 H (70-110) mg/dL Calcium (8.4-10.2) mg/dL 09/08/23 09/08/23 Range/Units 06:14 08:35 Sodium 136 L (137-145) mmol/L BUN 93 H (9-20) mg/dL Creatinine 3.62 H (0.66-1.25) mg/dL Glucose 190 H (74-99) mg/dL POC Glucose (mg/dL) 220 H (70-110) mg/dL Calcium 8.3 L (8.4-10.2) mg/dL
[2023-09-08] MEDS ORDERED: INSPUCOR MISCELLANE PRN (12:26)
[2023-09-08 16:25] LABS: Glucose,Whole Blood 273 mg/dL (70-110)
--- NOTE | 2023-09-08 16:44 | P.PN ---
Subjective Progress Note Date: 09/08/23 Follow-up for acute kidney injury. Urine output of 5.0 L in the last 24 hours Objective - Vital Signs Vital signs: Vital Signs Temp 98.1 F 09/08/23 12:50 Pulse 69 09/08/23 12:50 Resp 18 09/08/23 12:50 BP 136/60 09/08/23 12:50 Pulse Ox 95 09/08/23 12:50 FiO2 Intake & Output 09/07/23 09/08/23 09/08/23 18:59 06:59 18:59 Intake Total 660 240 Output Total 3350 1700 1100 Balance -2272 -1702 -020 Weight 79.4 kg Intake: Oral 660 240 Output: Urine 3350 1700 1100 Other: Voiding Method Indwelling Catheter Indwelling Catheter Indwelling Catheter - Exam No acute distress S1-S2 S1-S2 heard Decreased breath sounds Edema - Labs CBC & Chem 7: 09/07/23 06:49 09/08/23 08:35 Labs: Abnormal Lab Results - Last 24 Hours (Table) 09/07/23 09/08/23 09/08/23 Range/Units 20:19 06:14 08:35 Sodium 136 L (137-145) mmol/L BUN 93 H (9-20) mg/dL Creatinine 3.62 H (0.66-1.25) mg/dL Glucose 190 H (74-99) mg/dL POC Glucose (mg/dL) 228 H 220 H (70-110) mg/dL Calcium 8.3 L (8.4-10.2) mg/dL 09/08/23 09/08/23 Range/Units 11:30 16:22 Sodium (137-145) mmol/L BUN (9-20) mg/dL Creatinine (0.66-1.25) mg/dL Glucose (74-99) mg/dL POC Glucose (mg/dL) 214 H 273 H (70-110) mg/dL Calcium (8.4-10.2) mg/dL Assessment and Plan Assessment: #1 acute kidney injury secondary to ATN/CRS. -Baseline creatinine 2.0 MG per DL, September 2019 -Urine analysis [place] -Renal ultrasound no hydronephrosis #2 status post kidney pancreas transplant #3 diabetes mellitus #4 volume overload #5 CHF with systolic dysfunction EF of 40-45 Plan: #1 continue with diuretics. Good urine output. #2 renal function high per stable. #3 no acute indication for HYDROSTATIC TUBING TESTER.
--- NOTE | 2023-09-08 17:57 | P.PN ---
Subjective Progress Note Date: 09/08/23 (delayed charting seen at 0930) Patient is a 58 -year-old male with history of diabetes currently on insulin pump status post pancreatic transplant, end-stage renal disease, CVA, coronary artery disease status post 2 stents, and multiple other comorbid conditions who presented with concerns about inguinal hernia is due to increased edema in his scrotal area and lower extremities. In the ER he underwent an extensive evaluation. On arrival his vital signs within normal limits. Laboratory analysis included CBC, coags, basic metabolic profile, AST, ALT, troponin, and BNP which was remarkable for hemoglobin 6, potassium 6.5, chloride 112, carbon dioxide 16, BUN 94, creatinine 4.02, glucose 252, troponin 0.032, and BNP 64,900. In the ER he was given temporizing measures for his hyperkalem ia including IV insulin, calcium gluconate, and albuterol. Arrangements were made for admission. Case was discussed with nephrology. He required multiple doses of Lasix and lokalema for improvement in his potassium. He had good diuresis with lasix 60 mg IVP BID. His echo showed EF of 45-50%. He did have 24 hours of Lasix drip and then was transitioned back to IV Lasix with the addition of Zaroxolyn. Patient seen and examined at bedside. He has no complaints currently. He continues to have some lower extremity edema. His breathing is getting somewhat better. He did have a bowel movement yesterday. Vital signs reviewed General: nontoxic, no distress, appears at stated age Cardiovascular: S1S2 reg, no murmur, positive posterior tibial pulse bilateral, Lungs: Coarse breath sounds bilateral, no rhonchi, no rales , no accessory muscle use Abdominal: soft, nontender to palpation, no guarding, no appreciable organomegaly Ext: no gross muscle atrophy, 4+ lower extremity edema, no contractures Neuro: CN II-XI grossly intact, no focal neuro deficits Psych: Alert, oriented, appropriate affect Assessment/Plan: Acute fluid overload suspect secondary to MARIO and CHF Acute exacerbation of congestive diastolic heart failure, EF 45-50% Acute kidney injury on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 on immunosupression Hyperkalemia, resolved Non-anion gap metabolic acidosis, resolved Anemia of chronic kidney disease -Continue with Lasix 60 mg IV every 8 hours, Zaroxolyn 5 mg daily -Nephrology note: Continue with diuretics -Cardiology note reviewed: Continue with Lasix. - Renal US without obstructive uropathy - Strict I and O, daily weights -tacrolimus 2 mg at night and 2 mg in the morning, mycophenolate 720 mg twice daily, sodium bicarb 1300 mg 3 times daily, and prednisone 5 mg daily -Continue to hold Cozaar given hyperkalemia -Repeat BMP and magnesium in a.m. Hypomagnesium - Magnesium sulfate 2 g IV piggyback now, repeat magnesium in a.m. Diabetes mellitus type 1, insulin requiring status post pancreatic transplant -Accu-Cheks every before meals and at bedtime, A1C 7.9, patient to continue with his home insulin pump. We will continue to monitor Accu-Cheks despite him having a [employer] Kathleen monitor to ensure there are no signs of insulin toxicity such as hypoglycemia. Coronary artery disease History of CVA Dyslipidemia -Plavix 75 mg daily, Coreg 25 mg oral daily, hydralazine 100 mg oral 3 times da lissette Imaging: None new from today Course: Echo- EF 45-50% with basal inferior wall hypokinesis, RVSP 46. Renal US: No evidence of obstructive uropathy, arias in place Data Review: Labs reviewed from today are CBC, basic metabolic profile, and magnesium which are remarkable for hemoglobin 7.6, sodium 136, BUN 86, creatinine 3.66 DVT prophylaxis: Hepairn Anticipated discharge date: Pending Clinical Course Anticipated discharge place: Pending Clinical Course This dictation was prepared using [employer] voice recognition software. Though every attempt is made to correct errors during dictation some may still exist. Active Medications Acetaminophen (Acetaminophen Tab 325 Mg Tab) 650 mg PO Q6HR PRN PRN Reason: Mild Pain or Fever > 100.5 Atorvastatin Calcium (Atorvastatin 40 Mg Tab) 40 mg PO HS [facility] Last Admin: 09/07/23 21:26 Dose: 40 mg Carvedilol (Carvedilol 12.5 Mg Tab) 25 mg PO BID-W/MEALS [facility] Last Admin: 09/08/23 16:40 Dose: 25 mg Clopidogrel Bisulfate (Clopidogrel 75 Mg Tab) 75 mg PO DAILY [facility] Last Admin: 09/08/23 09:28 Dose: 75 mg Darbepoetin Asael (Darbepoetin Asael 60 Mcg/0.3 Ml Syringe) 60 mcg SQ Q7D [facility] Last Admin: 10/24/23 14:33 Dose: 60 mcg Furosemide (Furosemide 10 Mg/Ml 10 Ml Vial) 60 mg IV Q8HR [facility] Last Admin: 09/08/23 16:39 Dose: 60 mg Heparin Sodium (Porcine) (Heparin Sodium,Porcine 5,000 Unit/Ml 1 Ml Vial) 5,000 unit SQ Q8HR [facility] Last Admin: 09/08/23 16:31 Dose: Not Given Hydralazine HCl (Hydralazine Hcl 50 Mg Tab) 100 mg PO TID [facility] Last Admin: 09/08/23 16:40 Dose: 100 mg Magnesium Sulfate/Dextrose 1 (gm/ IV Solution) 100 mls @ 100 mls/hr IVPB Q1H [facility] Stop: 09/08/23 19:59 Insulin Aspart (Insulin Aspart (For Pump) 100 Unit/Ml Vial) 0.01 unit SQ-PUMP CONTINUOUS [facility] Last Admin: 09/07/23 17:19 Dose: Not Given Lactulose (Lactulose 20 Gm/30 Ml Cup) 30 gm PO BID PRN PRN Reason: Constipation Melatonin (Melatonin 3 Mg Tablet) 3 mg PO HS PRN PRN Reason: Insomnia Metoclopramide HCl (Metoclopramide 5 Mg Tab) 5 mg PO TID [facility] Last Admin: 09/08/23 16:39 Dose: 5 mg Metolazone (Metolazone 5 Mg Tab) 5 mg PO DAILY [facility] Last Admin: 09/08/23 09:30 Dose: 5 mg Miscellaneous Information (Insulin Pump Correction Bolus 1 Unit Misc) 0 unit MISCELLANE ACHS PRN; Protocol PRN Reason: Blood Sugar - High Last Admin: 09/08/23 16:41 Dose: 4 unit Mycophenolate Sodium (Mycophenolate Sodium Dr 180 Mg Tablet.Dr) 720 mg PO BID [facility] Last Admin: 09/08/23 09:29 Dose: 720 mg Naloxone HCl (Naloxone 0.4 Mg/Ml 1 Ml Vial) 0.2 mg IV Q2M PRN PRN Reason: Opioid Reversal Nystatin (Nystatin 100,000 Unit/Gm Powd 15 Gm) 1 applic TOPICAL TID [facility]; Protocol Last Admin: 09/08/23 16:40 Dose: Not Given Ondansetron HCl (Ondansetron 4 Mg/2 Ml Vial) 4 mg IVP Q8HR PRN PRN Reason: Nausea And Vomiting Pantoprazole Sodium (Pantoprazole 40 Mg Tablet) 40 mg PO AC-BRKFST [facility] Last Admin: 09/08/23 09:28 Dose: 40 mg Prednisone (Prednisone 5 Mg Tab) 5 mg PO DAILY [facility] Last Admin: 09/08/23 09:31 Dose: 5 mg Sodium Bicarbonate (Sodium Bicarbonate Tab 650 Mg Tab) 1,300 mg PO TID [facility] Last Admin: 09/08/23 16:40 Dose: 1,300 mg Tacrolimus (Tacrolimus 1 Mg Cap) 2 mg PO BID [facility] Last Admin: 09/08/23 09:28 Dose: 2 mg Temazepam (Temazepam 15 Mg Cap) 15 mg PO HS PRN PRN Reason: Insomnia Objective - Vital Signs Vital signs: Vital Signs Temp 98.1 F 09/08/23 12:50 Pulse 77 09/08/23 16:00 Resp 18 09/08/23 16:00 BP 127/61 09/08/23 16:00 Pulse Ox 93 L 09/08/23 16:00 FiO2 Intake & Output 09/07/23 09/08/23 09/08/23 18:59 06:59 18:59 Intake Total 660 960 Output Total 3350 1700 2100 Balance -2690 -1700 -1140 Weight 79.4 kg Intake: Oral 660 960 Output: Urine 3350 1700 2100 Other: Voiding Method Indwelling Catheter Indwelling Catheter Indwelling Catheter - Labs CBC & Chem 7: 09/07/23 06:49 09/08/23 08:35 Labs: Abnormal Lab Results - Last 24 Hours (Table) 09/07/23 09/08/23 09/08/23 Range/Units 20:19 06:14 08:35 Sodium 136 L (137-145) mmol/L BUN 93 H (9-20) mg/dL Creatinine 3.62 H (0.66-1.25) mg/dL Glucose 190 H (74-99) mg/dL POC Glucose (mg/dL) 228 H 220 H (70-110) mg/dL Calcium 8.3 L (8.4-10.2) mg/dL 09/08/23 09/08/23 Range/Units 11:30 16:22 Sodium (137-145) mmol/L BUN (9-20) mg/dL Creatinine (0.66-1.25) mg/dL Glucose (74-99) mg/dL POC Glucose (mg/dL) 214 H 273 H (70-110) mg/dL Calcium (8.4-10.2) mg/dL
[2023-09-08] MEDS: MAGNESIUM SULFATE-D5W PMX 1 GM in DEXTROSE/WATER 1 100ML.BAG IVPB SCH ×2 (18:35→20:00)
[2023-09-08] MEDS: Insulin Aspart (For Pump) 100 UNIT/ML VIAL SQ-PUMP SCH (19:55)
[2023-09-08 20:17] LABS: Glucose,Whole Blood 225 mg/dL (70-110)
[2023-09-08] MEDS: ATORVASTATIN 40 MG TAB PO SCH (21:58)
[2023-09-09] MEDS: FUROSEMIDE 10 MG/ML 10 ML VIAL IV SCH ×3 (00:15→22:31)
[2023-09-09] MEDS: HEPARIN SODIUM,PORCINE 5,000 UNIT/ML 1 ML VIAL SQ SCH ×3 (00:19→15:18)
[2023-09-09 05:59] LABS: Glucose,Whole Blood 173 mg/dL (70-110)
[2023-09-09 10:05] LABS: HCT 25.5 % (39.0-53.0); HGB 8.1 gm/dL (13.0-17.5); Hypochromasia Slight; Mean Platelet Volume 7.7; Platelet Count 198 k/uL (150-450); RBC 2.63 m/uL (4.30-5.90); RDW 14.1 % (11.5-15.5); WBC 5.6 k/uL (3.8-10.6)
[2023-09-09] MEDS: metOLazone 5 MG TAB PO SCH (10:05)
[2023-09-09] MEDS: CLOPIDOGREL 75 MG TAB PO SCH (10:05)
[2023-09-09] MEDS: hydrALAZINE HCL 50 MG TAB PO SCH ×3 (10:05→22:32)
[2023-09-09] MEDS: SODIUM BICARBONATE TAB 650 MG TAB PO SCH ×3 (10:05→22:32)
[2023-09-09] MEDS: PANTOPRAZOLE 40 MG TABLET PO SCH (10:05)
[2023-09-09] MEDS: carvediloL 12.5 MG TAB PO SCH ×2 (10:05→17:01)
[2023-09-09] MEDS: METOCLOPRAMIDE 5 MG TAB PO SCH ×3 (10:05→22:33)
[2023-09-09] MEDS: TACROLIMUS 1 MG CAP PO SCH ×2 (10:06→22:32)
[2023-09-09] MEDS: MYCOPHENOLATE SODIUM DR 180 MG TABLET.DR PO SCH ×2 (10:06→22:32)
[2023-09-09] MEDS: predniSONE 5 MG TAB PO SCH (10:07)
[2023-09-09] MEDS: NYSTATIN 100,000 UNIT/GM POWD 15 GM TOPICAL SCH ×3 (10:07→22:33)
[2023-09-09 10:26] LABS: African American GFR (CKD) 19 (>60 ml/min/1.73 sqM); Anion Gap 15 mmol/L; Blood Urea Nitrogen 99 mg/dL (9-20); Calcium 8.8 mg/dL (8.4-10.2); Carbon Dioxide 25 mmol/L (22-30); Chloride 97 mmol/L (98-107); Glucose 147 mg/dL (74-99); Magnesium 2.2 mg/dL (1.6-2.3); Non-African American GFR(CKD) 17 (>60 ml/min/1.73 sqM); Sodium 137 mmol/L (137-145)
[2023-09-09 11:40] LABS: Glucose,Whole Blood 146 mg/dL (70-110)
--- NOTE | 2023-09-09 13:27 | P.PN ---
Subjective HISTORY OF PRESENT ILLNESS: This is a 58-year-old male with a past medical history significant for coronary artery disease hypertension, hyperlipidemia, subacute CVA, diabetes, peripheral vascular disease and kidney and pancreatic transplant in 2012 in [place]. Patient does not follow with a welt sewer. We have been asked to see the patient in consultation for congestive heart failure. The patient lives in [place] and states he is in [place] for hunting. He has had lower extremity edema for the past 1-1/2 weeks. He states he has occasional shortness of breath. No chest pain. He has had swelling in the past in his lower legs but not this severe. Patient is currently on IV Lasix 60 mg every 12 hours and nephrology is following. EKG reveals sinus rhythm. Chest xray small bilateral pleural effusions which are new. Given cardiomegaly and some pulmonary edema, correlate for congestive heart failure Venous Doppler: Negative for DVT bilaterally Laboratory data: WBC 5.7. Hemoglobin 8.0. Platelet count 169. Sodium 138. Potassium 6.5. BUN 94. Creatinine 4.02. Troponin 0.032. ProBNP 64,900. Current home cardiac medications include Lipitor 40 mg at night, losartan 25 mg daily, Plavix 75 mg daily, carvedilol 25 mg twice a day, hydralazine 100 mg 3 times a day Most recent echocardiogram obtained in September 2019 revealing ejection fraction 55-60%, mild MR, mild TR Echocardiogram performed in [place] 05/29/2023, reveals EF 50-55% with mild hypokinesis of the basal to mild anterior lateral and basal to mid inferior lateral monsalve grade 2 diastolic dysfunction mild left atrial enlargement, aortic sclerosis without stenosis with MR, RVSP 38 mmHg, mild TR. 09/05 Patient is seen today in follow-up. He states his breathing is okay and he does not have any chest pain. His only concern is about the lower extremity edema which she continues to have and it slowly improving. Koroma catheter in place. Patient relates today that he did have stents done to his heart year ago. Echocardiogram reveals EF of 45-50%. Mid to basal inferior wall hypokinetic. RVSP 46 mmHg. Moderate TR. Renal ultrasound revealed no obstructive uropathy. Repeat blood work reveals hemoglobin of 7.8, BUN 91 creatinine 3.97, potassium 5.4. Patient is currently on Lasix 60 mg IV every 12 hours. 09/06 Patient seen and examined. Patient continues good urine output 4 L yesterday and contiues to diurese well today. Denies chest pain or pressure. He states he feels more relaxed. Creatinine remains stable 3.7. Blood pressures 120s and 130s. Patient continued on IV Lasix. 09/08 Patient has been continued on IV Lasix 60 mg every 8 hours. He continues to diurese well, slow improvement of the lower extremity edema. He has a negative fluid balance of 4000 miles. Weight is down 4 kg since admission. Renal function is improving slowly. BUN 93 creatinine 3.62, potassium 4.9. 09/09 Patient seen and examined. Patient continues to diurese well however unclear if intake is accurate. Still has significant 2+ lower extremity edema. Creatinine mildly increased up to 3.9 and Lasix was decreased to twice a day by medicine. Had been placed on the Zaroxolyn 2 days ago. PHYSICAL EXAM: VITAL SIGNS: Reviewed. GENERAL: Well-developed in no acute distress. HEENT: Head is normocephalic. Pupils are equal, round. Sclerae anicteric. No JVD or thyromegaly LUNGS: Decreased breath sounds at the bases. Lungs essentially clear to auscu ltation bilaterally. HEART: Regular rate and rhythm. S1 and S2 heard. ABDOMEN: Soft. Nondistended. Nontender. EXTREMITIES: No clubbing or cyanosis. Peripheral pulses intact. 2-3+ lower extremity edema NEUROLOGIC: Awake and alert. Oriented x 3. ASSESSMENT: Volume overload secondary to acute renal failure proBNP 64,900 Hyperkalemia Acute on chronic renal failure History of coronary artery disease with previous stent 1 year ago Hypertension Hyperlipidemia History of subacute CVA, on Plavix outpatient Diabetes History of kidney and pancreatic transplant in 2012, in [place] Anemia Acute on chronic diastolic heart failure, left ventricular EF 45-50% PLAN: Still appears significantly volume overloaded. Lasix was decreased to twice a day by medicine. Defer to nephrology. Monitor I&O, daily weights, electrolytes and renal function Further recommendations pending patient's progress Objective - Vital Signs Vital signs: Vital Signs Temp 97.4 F L 09/09/23 09:11 Pulse 67 09/09/23 12:28 Resp 18 09/09/23 12:28 BP 124/66 09/09/23 12:28 Pulse Ox 95 09/09/23 12:28 FiO2 Intake & Output 09/08/23 09/09/23 09/09/23 18:59 06:59 18:59 Intake Total 960 680 240 Output Total 2100 2200 1300 Balance -1140 -1520 -1060 Weight 75.1 kg Intake: Intake, IV Titration 100 Amount Magnesium Sulfate-D5w Pmx 100 1 gm In Dextrose/Water 1 100ml.bag @ 100 mls/hr IVPB Q1H [facility] Rx#: [id number] Oral 960 580 240 Output: Urine 2100 2200 1300 Uretheral (Koroma) 1700 Other: Voiding Method Indwelling Catheter Indwelling Catheter Indwelling Catheter - Labs CBC & Chem 7: 09/09/23 09:20 09/09/23 09:20 Labs: Abnormal Lab Results - Last 24 Hours (Table) 09/08/23 09/08/23 09/09/23 Range/Units 16:22 20:15 05:57 RBC (4.30-5.90) m/uL Hgb (13.0-17.5) gm/dL Hct (39.0-53.0) % Chloride (98-107) mmol/L BUN (9-20) mg/dL Creatinine (0.66-1.25) mg/dL Glucose (74-99) mg/dL POC Glucose (mg/dL) 273 H 225 H 173 H (70-110) mg/dL 09/09/23 09/09/23 09/09/23 Range/Units 09:20 09:20 11:35 RBC 2.63 L (4.30-5.90) m/uL Hgb 8.1 L (13.0-17.5) gm/dL Hct 25.5 L (39.0-53.0) % Chloride 97 L (98-107) mmol/L BUN 99 H (9-20) mg/dL Creatinine 3.82 H (0.66-1.25) mg/dL Glucose 147 H (74-99) mg/dL POC Glucose (mg/dL) 146 H (70-110) mg/dL
[2023-09-09] MEDS: Insulin Aspart (For Pump) 100 UNIT/ML VIAL SQ-PUMP SCH (14:24)
--- NOTE | 2023-09-09 15:20 | P.PN ---
Subjective Progress Note Date: 09/09/23 Follow-up for acute kidney injury. Urine output of 4.3 L in the last 24 hours Objective - Vital Signs Vital signs: Vital Signs Temp 97.4 F L 09/09/23 09:11 Pulse 67 09/09/23 14:56 Resp 18 09/09/23 14:56 BP 124/66 09/09/23 12:28 Pulse Ox 95 09/09/23 12:28 FiO2 Intake & Output 09/08/23 09/09/23 09/09/23 18:59 06:59 18:59 Intake Total 960 680 240 Output Total 2100 2200 1300 Balance -1140 -1520 -1060 Weight 75.1 kg Intake: Intake, IV Titration 100 Amount Magnesium Sulfate-D5w Pmx 100 1 gm In Dextrose/Water 1 100ml.bag @ 100 mls/hr IVPB Q1H [facility] Rx#: [id number] Oral 960 580 240 Output: Urine 2100 2200 1300 Uretheral (Koroma) 1700 Other: Voiding Method Indwelling Catheter Indwelling Catheter Indwelling Catheter - Exam No acute distress S1-S2 S1-S2 heard Decreased breath sounds Edema - Labs CBC & Chem 7: 09/09/23 09:20 09/09/23 09:20 Labs: Abnormal Lab Results - Last 24 Hours (Table) 09/08/23 09/08/23 09/09/23 Range/Units 16:22 20:15 05:57 RBC (4.30-5.90) m/uL Hgb (13.0-17.5) gm/dL Hct (39.0-53.0) % Chloride (98-107) mmol/L BUN (9-20) mg/dL Creatinine (0.66-1.25) mg/dL Glucose (74-99) mg/dL POC Glucose (mg/dL) 273 H 225 H 173 H (70-110) mg/dL 09/09/23 09/09/23 09/09/23 Range/Units 09:20 09:20 11:35 RBC 2.63 L (4.30-5.90) m/uL Hgb 8.1 L (13.0-17.5) gm/dL Hct 25.5 L (39.0-53.0) % Chloride 97 L (98-107) mmol/L BUN 99 H (9-20) mg/dL Creatinine 3.82 H (0.66-1.25) mg/dL Glucose 147 H (74-99) mg/dL POC Glucose (mg/dL) 146 H (70-110) mg/dL Assessment and Plan Assessment: #1 acute kidney injury secondary to ATN/CRS. -Baseline creatinine 2.0 MG per DL, September 2019 -Urine analysis [place] -Renal ultrasound no hydronephrosis #2 status post kidney pancreas transplant #3 diabetes mellitus #4 volume overload #5 CHF with systolic dysfunction EF of 40-45 Plan: #1 continue with diuretics. Good urine output. #2 renal function high but stable. #3 no acute indication for [employer].
[2023-09-09 16:31] LABS: Glucose,Whole Blood 277 mg/dL (70-110)
--- NOTE | 2023-09-09 17:26 | P.PN ---
Subjective Progress Note Date: 09/09/23 (delayed charting seen at 1045) Patient is a 58 -year-old male with history of diabetes currently on insulin pump status post pancreatic transplant, end-stage renal disease, CVA, coronary artery disease status post 2 stents, and multiple other comorbid conditions who presented with concerns about inguinal hernia is due to increased edema in his scrotal area and lower extremities. In the ER he underwent an extensive evaluation. On arrival his vital signs within normal limits. Laboratory analysis included CBC, coags, basic metabolic profile, AST, ALT, troponin, and BNP which was remarkable for hemoglobin 6, potassium 6.5, chloride 112, carbon dioxide 16, BUN 94, creatinine 4.02, glucose 252, troponin 0.032, and BNP 64,900. In the ER he was given temporizing measures for his hyperkalem ia including IV insulin, calcium gluconate, and albuterol. Arrangements were made for admission. Case was discussed with nephrology. He required multiple doses of Lasix and lokalema for improvement in his potassium. He had good diuresis with lasix 60 mg IVP BID. His echo showed EF of 45-50%. He did have 24 hours of Lasix drip and then was transitioned back to IV Lasix with the addition of Zaroxolyn. Patient seen and examined at bedside. Patient had one episode of emesis today. He is unsure why that was right after breakfast. He has no more nausea and feels as though he can eat. I discussed with him if he has a recurrence he should notify the nurse so that I can be aware immediately. Vital signs reviewed General: nontoxic, no distress, appears at stated age Cardiovascular: S1S2 reg, no murmur, positive posterior tibial pulse bilateral, Lungs: Coarse breath sounds bilateral, no rhonchi, no rales , no accessory muscle use Abdominal: soft, nontender to palpation, no guarding, no appreciable organomegaly Ext: no gross muscle atrophy, 4+ lower extremity edema, no contractures Neuro: CN II-XI grossly intact, no focal neuro deficits Psych: Alert, oriented, appropriate affect Assessment/Plan: Acute fluid overload suspect secondary to MARIO and CHF Acute exacerbation of congestive diastolic heart failure, EF 45-50% Acute kidney injury on 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 on immunosupression Hyperkalemia, resolved Non-anion gap metabolic acidosis, resolved Anemia of chronic kidney disease -Patient with good response to diuretic therapy. Creatinine slightly increased from 3.36-3.8 to decrease Lasix to 60 mg IV push twice daily, continue with Zaroxolyn 5 mg oral daily. As of 09/09 at 0700 net fluid blance -17.8L -Nephrology note reviewed: Continue with diuretics -Cardiology note reviewed: lasix decreased be medicine and patinet still fluid overloaded, defer diuretics to neprhology. - Renal US without obstructive uropathy - Strict I and O, daily weights -tacrolimus 2 mg at night and 2 mg in the morning, mycophenolate 720 mg twice daily, sodium bicarb 1300 mg 3 times daily, and prednisone 5 mg daily -Continue to hold Cozaar given hyperkalemia on admission and still borderline at 5 -Repeat BMP and magnesium in a.m. Diabetes mellitus type 1, insulin requiring status post pancreatic transplant -Accu-Cheks every before meals and at bedtime, A1C 7.9, patient to continue with his home insulin pump. We will continue to monitor Accu-Cheks despite him mimiin g a [employer] Kathleen monitor to ensure there are no signs of insulin toxicity such as hypoglycemia. Coronary artery disease History of CVA Dyslipidemia -Plavix 75 mg daily, Coreg 25 mg oral daily, hydralazine 100 mg oral 3 times daily Imaging: None new from today Course: Echo- EF 45-50% with basal inferior wall hypokinesis, RVSP 46. Renal US: No evidence of obstructive uropathy, arias in place Data Review: Labs reviewed from today are CBC, basic metabolic profile, and magnesium which are remarkable for hemoglobin 7.6, sodium 136, BUN 86, creatinine 3.66 DVT prophylaxis: Hepairn Anticipated discharge date: Pending Clinical Course Anticipated discharge place: Pending Clinical Course This dictation was prepared using [employer] voice recognition software. Though every attempt is made to correct errors during dictation some may still exist. Objective - Vital Signs Vital signs: Vital Signs Temp 97.4 F L 09/09/23 09:11 Pulse 70 09/09/23 16:50 Resp 18 09/09/23 16:50 BP 133/66 09/09/23 16:50 Pulse Ox 97 09/09/23 16:50 FiO2 Intake & Output 09/08/23 09/09/23 09/09/23 18:59 06:59 18:59 Intake Total 960 680 240 Output Total 2100 2200 2600 Balance -1140 -1520 -2360 Weight 75.1 kg Intake: Intake, IV Titration 100 Amount Magnesium Sulfate-D5w Pmx 100 1 gm In Dextrose/Water 1 100ml.bag @ 100 mls/hr IVPB Q1H [facility] Rx#: [id number] Oral 960 580 240 Output: Urine 2100 2200 2600 Uretheral ([place]) 1700 Other: Voiding Method Indwelling Catheter Indwelling Catheter Indwelling Catheter - Labs CBC & Chem 7: 09/09/23 09:20 09/09/23 09:20 Labs: Abnormal Lab Results - Last 24 Hours (Table) 09/08/23 09/09/23 09/09/23 Range/Units 20:15 05:57 09:20 RBC 2.63 L (4.30-5.90) m/uL Hgb 8.1 L (13.0-17.5) gm/dL Hct 25.5 L (39.0-53.0) % Chloride (98-107) mmol/L BUN (9-20) mg/dL Creatinine (0.66-1.25) mg/dL Glucose (74-99) mg/dL POC Glucose (mg/dL) 225 H 173 H (70-110) mg/dL 09/09/23 09/09/23 09/09/23 Range/Units 09:20 11:35 16:29 RBC (4.30-5.90) m/uL Hgb (13.0-17.5) gm/dL Hct (39.0-53.0) % Chloride 97 L (98-107) mmol/L BUN 99 H (9-20) mg/dL Creatinine 3.82 H (0.66-1.25) mg/dL Glucose 147 H (74-99) mg/dL POC Glucose (mg/dL) 146 H 277 H (70-110) mg/dL
[2023-09-09 20:03] LABS: Glucose,Whole Blood 227 mg/dL (70-110)
[2023-09-09] MEDS: ATORVASTATIN 40 MG TAB PO SCH (22:32)
[2023-09-10] MEDS: HEPARIN SODIUM,PORCINE 5,000 UNIT/ML 1 ML VIAL SQ SCH ×5 (02:41→22:53)
[2023-09-10] MEDS: ACETAMINOPHEN TAB 325 MG TAB PO PRN ×2 (04:52→22:01)
[2023-09-10 05:55] LABS: Glucose,Whole Blood 181 mg/dL (70-110)
[2023-09-10 08:39] LABS: African American GFR (CKD) 18 (>60 ml/min/1.73 sqM); Anion Gap 12 mmol/L; Calcium 8.9 mg/dL (8.4-10.2); Carbon Dioxide 26 mmol/L (22-30); Chloride 99 mmol/L (98-107); Glucose 131 mg/dL (74-99); Magnesium 2.1 mg/dL (1.6-2.3); Non-African American GFR(CKD) 16 (>60 ml/min/1.73 sqM); Sodium 137 mmol/L (137-145)
[2023-09-10 08:45] LABS: Blood Urea Nitrogen 107 mg/dL (9-20)
[2023-09-10] MEDS: SODIUM BICARBONATE TAB 650 MG TAB PO SCH ×3 (09:57→22:00)
[2023-09-10] MEDS: METOCLOPRAMIDE 5 MG TAB PO SCH ×3 (09:57→22:00)
[2023-09-10] MEDS: carvediloL 12.5 MG TAB PO SCH ×2 (09:57→17:23)
[2023-09-10] MEDS: PANTOPRAZOLE 40 MG TABLET PO SCH (09:57)
[2023-09-10] MEDS: hydrALAZINE HCL 50 MG TAB PO SCH ×3 (09:57→22:00)
[2023-09-10] MEDS: TACROLIMUS 1 MG CAP PO SCH ×2 (09:58→22:02)
[2023-09-10] MEDS: metOLazone 5 MG TAB PO SCH (09:58)
[2023-09-10] MEDS: predniSONE 5 MG TAB PO SCH (09:59)
[2023-09-10] MEDS: MYCOPHENOLATE SODIUM DR 180 MG TABLET.DR PO SCH ×2 (09:59→22:01)
[2023-09-10] MEDS: NYSTATIN 100,000 UNIT/GM POWD 15 GM TOPICAL SCH ×3 (10:00→22:02)
[2023-09-10] MEDS: CLOPIDOGREL 75 MG TAB PO SCH (10:06)
[2023-09-10] MEDS: FUROSEMIDE 10 MG/ML 10 ML VIAL IV SCH ×2 (10:07→22:01)
--- NOTE | 2023-09-10 10:51 | P.PN ---
Subjective Patient is seen in follow-up for chronic kidney disease and renal transplant management. Renal function fairly stable. On IV Lasix. Nonoliguric. Weight trending down. Denies chest pain or shortness of breath. Vital signs are stable. General: No acute distress. HEENT: Head exam is unremarkable. LUNGS: No audible rhonchi or wheezes. HEART: Rate and Rhythm are regular. ABDOMEN: Nontender. EXTREMITITES: 1+ edema. Objective - Vital Signs Vital signs: Vital Signs Temp 97.9 F 09/10/23 07:39 Pulse 69 09/10/23 10:15 Resp 17 09/10/23 10:15 BP 123/65 09/10/23 07:39 Pulse Ox 95 09/10/23 07:39 FiO2 Intake & Output 09/09/23 09/10/23 09/10/23 18:59 06:59 18:59 Intake Total 480 180 Output Total 2600 1900 550 Balance -2120 -1900 -370 Weight 73.1 kg Intake: Oral 480 180 Output: Urine 2600 1900 550 Other: Voiding Method Indwelling Catheter Indwelling Catheter Indwelling Catheter - Labs CBC & Chem 7: 09/09/23 09:20 09/10/23 07:12 Labs: Abnormal Lab Results - Last 24 Hours (Table) 09/09/23 09/09/23 09/09/23 Range/Units 11:35 16:29 20:02 BUN (9-20) mg/dL Creatinine (0.66-1.25) mg/dL Glucose (74-99) mg/dL POC Glucose (mg/dL) 146 H 277 H 227 H (70-110) mg/dL 09/10/23 09/10/23 Range/Units 05:53 07:12 BUN 107 H* (9-20) mg/dL Creatinine 3.94 H (0.66-1.25) mg/dL Glucose 131 H (74-99) mg/dL POC Glucose (mg/dL) 181 H (70-110) mg/dL Assessment and Plan Plan: Assessment: 1. Acute kidney injury secondary to ATN secondary to cardiorenal syndrome. Creatinine stable at 3.94 today. Nonoliguric. Tacrolimus level 8.5. No hydronephrosis on ultrasound. 2. Chronic kidney disease stage IIIB/4. Patient follows with music library assistant at [facility]. 3. Status post simultaneous kidney and pancreatic transplant with failed pancreatic transplant and functioning kidney transplant maintained on prednisone, Prograf and CellCept. Prograf level 8.5. Dose decreased. 4. Diabetes mellitus. 5. Volume overload. Improving with diuresis. 6. Acute on chronic systolic CHF with ejection fraction of 45-50% and moderate to severe tricuspid regurgitation. 7. Hypertension with chronic kidney disease. 8. Hypomagnesemia from diuresis. Replaced. Better. 9. Anemia of chronic kidney disease maintained on Aranesp. Iron replete. 10. Metabolic acidosis secondary to acute kidney injury maintained on oral bicarb. Improved. Plan: Maintain IV Lasix. Possibly transition to oral diuretics tomorrow. Maintain metolazone. Maintain low salt diet and 1500 mL fluid restriction. Strict I's and O's. Avoid nephrotoxins. Continue to monitor renal function and urine output. Repeat BMP and magnesium level 2-3 days postdischarge. Follow up outpatient in 1 week. Advised patient to monitor his weight closely at home and to notify physician if develops worsening edema or weight gain of more than 3-4 pounds in one week duration.
--- NOTE | 2023-09-10 11:30 | P.PN ---
Subjective HISTORY OF PRESENT ILLNESS: This is a 58-year-old male with a past medical history significant for coronary artery disease hypertension, hyperlipidemia, subacute CVA, diabetes, peripheral vascular disease and kidney and pancreatic transplant in 2012 in [place]. Patient does not follow with a earth burner. We have been asked to see the patient in consultation for congestive heart failure. The patient lives in [place] and [place]. He has had lower extremity edema for the past 1-1/2 weeks. He states he has occasional shortness of breath. No chest pain. He has had swelling in the past in his lower legs but not this severe. Patient is currently on IV Lasix 60 mg every 12 hours and nephrology is following. EKG reveals sinus rhythm. Chest xray small bilateral pleural effusions which are new. Given cardiomegaly and some pulmonary edema, correlate for congestive heart failure Venous Doppler: Negative for DVT bilaterally Laboratory data: WBC 5.7. Hemoglobin 8.0. Platelet count 169. Sodium 138. Potassium 6.5. BUN 94. Creatinine 4.02. Troponin 0.032. ProBNP 64,900. Current home cardiac medications include Lipitor 40 mg at night, losartan 25 mg daily, Plavix 75 mg daily, carvedilol 25 mg twice a day, hydralazine 100 mg 3 times a day Most recent echocardiogram obtained in September 2019 revealing ejection fraction 55-60%, mild MR, mild TR Echocardiogram performed in [place] 05/29/2023, reveals EF 50-55% with mild hypokinesis of the basal to mild anterior lateral and basal to mid inferior lateral monsalve grade 2 diastolic dysfunction mild left atrial enlargement, aortic sclerosis without stenosis with MR, RVSP 38 mmHg, mild TR. 09/05 Patient is seen today in follow-up. He states his breathing is okay and he does not have any chest pain. His only concern is about the lower extremity edema which she continues to have and it slowly improving. Koroma catheter in place. Patient relates today that he did have stents done to his heart year ago. Echocardiogram reveals EF of 45-50%. Mid to basal inferior wall hypokinetic. RVSP 46 mmHg. Moderate TR. Renal ultrasound revealed no obstructive uropathy. Repeat blood work reveals hemoglobin of 7.8, BUN 91 creatinine 3.97, potassium 5.4. Patient is currently on Lasix 60 mg IV every 12 hours. 09/06 Patient seen and examined. Patient continues good urine output 4 L yesterday and contiues to diurese well today. Denies chest pain or pressure. He states he feels more relaxed. Creatinine remains stable 3.7. Blood pressures 120s and 130s. Patient continued on IV Lasix. 09/08 Patient has been continued on IV Lasix 60 mg every 8 hours. He continues to diurese well, slow improvement of the lower extremity edema. He has a negative fluid balance of 4000 miles. Weight is down 4 kg since admission. Renal fu nction is improving slowly. BUN 93 creatinine 3.62, potassium 4.9. 09/09 Patient seen and examined. Patient continues to diurese well however unclear if intake is accurate. Still has significant 2+ lower extremity edema. Creatinine mildly increased up to 3.9 and Lasix was decreased to twice a day by medicine. Had been placed on the Zaroxolyn 2 days ago. 09/10/2023 Patient examined this morning at the bedside. She is sitting up in the chair. Patient currently denies chest pain or pressure. He currently denies shortness of breath. He remains on IV Lasix. Kidney function stable today. Vital signs are stable. PHYSICAL EXAM: VITAL SIGNS: Reviewed. GENERAL: Well-developed in no acute distress. NECK: Supple. No JVD or thyromegaly LUNGS: Respirations even and unlabored. Lungs essentially clear to auscultation bilaterally. HEART: Regular rate and rhythm. S1 and S2 heard. EXTREMITIES: Normal range of motion. No clubbing or cyanosis. Peripheral pulses intact. Trace bilateral lower extremity edema ASSESSMENT: Volume overload secondary to acute renal failure proBNP 64,900 Hyperkalemia Acute on chronic renal failure History of coronary artery disease with previous stent 1 year ago Hypertension Hyperlipidemia History of subacute CVA, on Plavix outpatient Diabetes History of kidney and pancreatic transplant in 2013, in [place] Anemia Acute on chronic diastolic heart failure, left ventricular EF 45-50% PLAN: Continue current cardiac medications Continue IV diuresis per nephrology Continue to monitor kidney function No further inpatient recommendations from a cardiac standpoint We will sign off. Please reconsult if needed. Nurse practitioner note has been reviewed by physician. Signing provider agrees with the documented findings, assessment, and plan of care. Objective - Vital Signs Vital signs: Vital Signs Temp 97.9 F 09/10/23 07:39 Pulse 69 09/10/23 07:39 Resp 17 09/10/23 07:39 BP 123/65 09/10/23 07:39 Pulse Ox 95 09/10/23 07:39 FiO2 Intake & Output 09/09/23 09/10/23 09/10/23 18:59 06:59 18:59 Intake Total 480 Output Total 2600 1900 Balance -2120 -1900 Weight 73.1 kg Intake: Oral 480 Output: Urine 2600 1900 Other: Voiding Method Indwelling Catheter Indwelling Catheter - Labs CBC & Chem 7: 09/09/23 09:20 09/10/23 07:12 Labs: Abnormal Lab Results - Last 24 Hours (Table) 09/09/23 09/09/23 09/09/23 Range/Units 09:20 09:20 11:35 RBC 2.63 L (4.30-5.90) m/uL Hgb 8.1 L (13.0-17.5) gm/dL Hct 25.5 L (39.0-53.0) % Chloride 97 L (98-107) mmol/L BUN 99 H (9-20) mg/dL Creatinine 3.82 H (0.66-1.25) mg/dL Glucose 147 H (74-99) mg/dL POC Glucose (mg/dL) 146 H (70-110) mg/dL 09/09/23 09/09/23 09/10/23 Range/Units 16:29 20:02 05:53 RBC (4.30-5.90) m/uL Hgb (13.0-17.5) gm/dL Hct (39.0-53.0) % Chloride (98-107) mmol/L BUN (9-20) mg/dL Creatinine (0.66-1.25) mg/dL Glucose (74-99) mg/dL POC Glucose (mg/dL) 277 H 227 H 181 H (70-110) mg/dL 09/10/23 Range/Units 07:12 RBC (4.30-5.90) m/uL Hgb (13.0-17.5) gm/dL Hct (39.0-53.0) % Chloride (98-107) mmol/L BUN 107 H* (9-20) mg/dL Creatinine 3.94 H (0.66-1.25) mg/dL Glucose 131 H (74-99) mg/dL POC Glucose (mg/dL) (70-110) mg/dL
[2023-09-10 11:35] LABS: Glucose,Whole Blood 122 mg/dL (70-110)
--- NOTE | 2023-09-10 12:26 | P.PN ---
Subjective Progress Note Date: 09/10/23 Patient is a 58 -year-old male with history of diabetes currently on insulin pump status post pancreatic transplant, end-stage renal disease, CVA, coronary artery disease status post 2 stents, and multiple other comorbid conditions who presented with concerns about inguinal hernia is due to increased edema in his scrotal area and lower extremities. In the ER he underwent an extensive evaluation. On arrival his vital signs within normal limits. Laboratory analysis included CBC, coags, basic metabolic profile, AST, ALT, troponin, and BNP which was remarkable for hemoglobin 6, potassium 6.5, chloride 112, carbon dioxide 16, BUN 94, creatinine 4.02, glucose 252, troponin 0.032, and BNP 64,900. In the ER he was given temporizing measures for his hyperkalemia including IV insulin, calcium gluconate, and albuterol. Arrangements were made for admission. Case was discussed with nephrology. He required multiple doses of Lasix and lokalema for improvement in his potassium. He had good diuresis with lasix 60 mg IVP BID. His echo showed EF of 45-50%. He did have 24 hours of Lasix drip and then was transitioned back to IV Lasix with the addition of Zaroxolyn. Patient seen and examined at bedside. Denies any new complaints, Arias catheter in place, making urine. Vital signs reviewed General: nontoxic, no distress, appears at stated age Cardiovascular: S1S2 reg, no murmur, positive posterior tibial pulse bilateral, Lungs: Coarse breath sounds bilateral, no rhonchi, no rales , no accessory muscle use Abdominal: soft, nontender to palpation, no guarding, no appreciable organomegaly Ext: no gross muscle atrophy, 4+ lower extremity edema, no contractures Neuro: CN II-XI grossly intact, no focal neuro deficits Psych: Alert, oriented, appropriate affect Assessment/Plan: Acute fluid overload suspect secondary to MARIO and CHF Acute exacerbation of congestive diastolic heart failure, EF 45-50% Acute kidney injury on 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 on immunosupression Hyperkalemia, resolved Non-anion gap metabolic acidosis, resolved Anemia of chronic kidney disease -Discussed management with nephrology, continue IV diuretics for another day, consider switching to oral diuretics tomorrow -On IV Lasix 60 mg twice daily, and metolazone 5 mg daily -Cardiology note reviewed, signed off -Strict I and O, daily weights -tacrolimus 2 mg at night and 2 mg in the morning, mycophenolate 720 mg twice daily, sodium bicarb 1300 mg 3 times daily, and prednisone 5 mg daily -Continue to hold Cozaar given hyperkalemia on admission and still borderline at 5 -Repeat BMP and magnesium in a.m. Diabetes mellitus type 1, insulin requiring status post pancreatic transplant -Accu-Cheks every before meals and at bedtime, A1C 7.9, patient to continue with his home insulin pump. We will continue to monitor Accu-Cheks despite him having a [employer] monitor to ensure there are no signs of insulin toxicity such as hypoglycemia. Coronary artery disease History of CVA Dyslipidemia -Plavix 75 mg daily, Coreg 25 mg oral daily, hydralazine 100 mg oral 3 times daily Imaging: None new from today Course: Echo- EF 45-50% with basal inferior wall hypokinesis, RVSP 46. Renal US: No evidence of obstructive uropathy, arias in place Data Review: Labs reviewed from today: BUN 107, Cr 3.94, BS ranged between 122-227 DVT prophylaxis: Hepairn Anticipated discharge date: Pending Clinical Course Anticipated discharge place: Pending Clinical Course Objective - Vital Signs Vital signs: Vital Signs Temp 97.3 F L 09/10/23 11:59 Pulse 68 09/10/23 11:59 Resp 16 09/10/23 11:59 BP 107/57 09/10/23 11:59 Pulse Ox 98 09/10/23 11:59 FiO2 Intake & Output 09/09/23 09/10/23 09/10/23 18:59 06:59 18:59 Intake Total 480 180 Output Total 2600 1900 550 Balance -0 -1900 -370 Weight 73.1 kg Intake: Oral 480 180 Output: Urine 2600 1900 550 Other: Voiding Method Indwelling Catheter Indwelling Catheter Indwelling Catheter - Labs CBC & Chem 7: 09/09/23 09:20 09/10/23 07:12 Labs: Abnormal Lab Results - Last 24 Hours (Table) 09/09/23 09/09/23 09/10/23 Range/Units 16:29 20:02 05:53 BUN (9-20) mg/dL Creatinine (0.66-1.25) mg/dL Glucose (74-99) mg/dL POC Glucose (mg/dL) 277 H 227 H 181 H (70-110) mg/dL 09/10/23 09/10/23 Range/Units 07:12 11:32 BUN 107 H* (9-20) mg/dL Creatinine 3.94 H (0.66-1.25) mg/dL Glucose 131 H (74-99) mg/dL POC Glucose (mg/dL) 122 H (70-110) mg/dL
[2023-09-10 13:38] VITALS: BMI 25.9
[2023-09-10] MEDS: Insulin Aspart (For Pump) 100 UNIT/ML VIAL SQ-PUMP SCH (16:28)
[2023-09-10 16:43] LABS: Glucose,Whole Blood 265 mg/dL (70-110)
[2023-09-10 20:30] LABS: Glucose,Whole Blood 296 mg/dL (70-110)
[2023-09-10] MEDS: ATORVASTATIN 40 MG TAB PO SCH (22:00)
[2023-09-11 06:13] LABS: Glucose,Whole Blood 193 mg/dL (70-110)
[2023-09-11] MEDS: CLOPIDOGREL 75 MG TAB PO SCH (08:41)
[2023-09-11] MEDS: hydrALAZINE HCL 50 MG TAB PO SCH (08:41)
[2023-09-11] MEDS: carvediloL 12.5 MG TAB PO SCH (08:42)
[2023-09-11] MEDS: SODIUM BICARBONATE TAB 650 MG TAB PO SCH (08:42)
[2023-09-11] MEDS: PANTOPRAZOLE 40 MG TABLET PO SCH (08:42)
[2023-09-11] MEDS: FUROSEMIDE 10 MG/ML 10 ML VIAL IV SCH (08:42)
[2023-09-11] MEDS: METOCLOPRAMIDE 5 MG TAB PO SCH (08:42)
[2023-09-11] MEDS: NYSTATIN 100,000 UNIT/GM POWD 15 GM TOPICAL SCH (08:43)
[2023-09-11] MEDS: predniSONE 5 MG TAB PO SCH (08:43)
[2023-09-11] MEDS: MYCOPHENOLATE SODIUM DR 180 MG TABLET.DR PO SCH (08:43)
[2023-09-11] MEDS: metOLazone 5 MG TAB PO SCH (08:43)
[2023-09-11 08:44] LABS: African American GFR (CKD) 19 (>60 ml/min/1.73 sqM); Anion Gap 11 mmol/L; Calcium 8.7 mg/dL (8.4-10.2); Carbon Dioxide 26 mmol/L (22-30); Chloride 99 mmol/L (98-107); Glucose 130 mg/dL (74-99); Magnesium 1.9 mg/dL (1.6-2.3); Non-African American GFR(CKD) 16 (>60 ml/min/1.73 sqM); Potassium 5.1 mmol/L (3.5-5.1); Sodium 136 mmol/L (137-145)
[2023-09-11] MEDS: HEPARIN SODIUM,PORCINE 5,000 UNIT/ML 1 ML VIAL SQ SCH (08:44)
[2023-09-11] MEDS: TACROLIMUS 1 MG CAP PO SCH (08:44)
[2023-09-11 08:46] LABS: Blood Urea Nitrogen 119 mg/dL (9-20)
[2023-09-11] MEDS: ACETAMINOPHEN TAB 325 MG TAB PO PRN (08:59)
[2023-09-11 09:58] VITALS: TEMP 98.1
--- NOTE | 2023-09-11 10:58 | P.PN ---
Subjective Patient is seen in follow-up for chronic kidney disease and renal transplant management. Renal function fairly stable. On IV Lasix. Nonoliguric. Weight trending down. Denies chest pain or shortness of breath. Vital signs are stable. General: No acute distress. HEENT: Head exam is unremarkable. LUNGS: No audible rhonchi or wheezes. HEART: Rate and Rhythm are regular. ABDOMEN: Nontender. EXTREMITITES: 1+ edema. Objective - Vital Signs Vital signs: Vital Signs Temp 98.1 F 09/11/23 08:40 Pulse 70 09/11/23 08:40 Resp 18 09/11/23 08:40 BP 139/68 09/11/23 08:40 Pulse Ox 97 09/11/23 08:40 FiO2 Intake & Output 09/10/23 09/11/23 09/11/23 18:59 06:59 18:59 Intake Total 720 240 Output Total 1750 1825 Balance -1030 -1825 240 Weight 73.1 kg 70.9 kg Intake: Oral 720 240 Output: Urine 1750 1825 Other: Voiding Method Indwelling Catheter Indwelling Catheter Indwelling Catheter - Labs CBC & Chem 7: 09/09/23 09:20 09/11/23 08:06 Labs: Abnormal Lab Results - Last 24 Hours (Table) 09/10/23 09/10/23 09/10/23 Range/Units 11:32 16:41 20:29 Sodium (137-145) mmol/L BUN (9-20) mg/dL Creatinine (0.66-1.25) mg/dL Glucose (74-99) mg/dL POC Glucose (mg/dL) 122 H 265 H 296 H (70-110) mg/dL 09/11/23 09/11/23 Range/Units 06:10 08:06 Sodium 136 L (137-145) mmol/L BUN 119 H* (9-20) mg/dL Creatinine 3.85 H (0.66-1.25) mg/dL Glucose 130 H (74-99) mg/dL POC Glucose (mg/dL) 193 H (70-110) mg/dL Assessment and Plan Plan: Assessment: 1. Acute kidney injury secondary to ATN secondary to cardiorenal syndrome. Creatinine stable at 3.85 today. Nonoliguric. Tacrolimus level 8.5. No hydronephrosis on ultrasound. 2. Chronic kidney disease stage IIIB/4. Patient follows with neighborhood aide at [facility]. 3. Status post simultaneous kidney and pancreatic transplant with failed pancreatic transplant and functioning kidney transplant maintained on prednisone, Prograf and CellCept. Prograf level 8.5. Dose decreased. 4. Diabetes mellitus. 5. Volume overload. Improving with diuresis. 6. Acute on chronic systolic CHF with ejection fraction of 45-50% and moderate to severe tricuspid regurgitation. 7. Hypertension with chronic kidney disease. 8. Hypomagnesemia from diuresis. Replaced. Better. 9. Anemia of chronic kidney disease maintained on Aranesp. Iron replete. 10. Metabolic acidosis secondary to acute kidney injury maintained on oral bicarb. Improved. Plan: Stop IV Lasix. Add Bumex 2 mg twice daily. Maintain metolazone. Maintain low salt diet and 1500 mL fluid restriction. Strict I's and O's. Avoid nephrotoxins. Continue to monitor renal function and urine output. Repeat BMP and magnesium level 2-3 days postdischarge. Follow up outpatient in 1 week. Advised patient to monitor his weight closely at home and to notify physician if develops worsening edema or weight gain of more than 3-4 pounds in one week duration.
--- NOTE | 2023-09-11 11:44 | P.DS ---
Providers Date of admission: 09/03/23 12:47 Expected date of discharge: 09/11/23 Attending physician: Keyon Hugo MD Consults: 09/03/23 12:49 Consult Physician Routine Consulting Provider: Winnie Garcia Consult Reason/Comments: Acute anemia, renal failure status post transplant Do you want consulting provider notified?: Yes Primary care physician: Stated None Hospital Course: Discharge Diagnosis: Acute fluid overload suspect secondary to MARIO and CHF Acute exacerbation of congestive diastolic heart failure, EF 45-50% Acute kidney injury on 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 on immunosupression Hyperkalemia, resolved Non-anion gap metabolic acidosis, resolved Anemia of chronic kidney disease Diabetes mellitus type 1, insulin requiring status post pancreatic transplant Coronary artery disease History of CVA Dyslipidemia Hospital Course: Patient is a 58 -year-old male with history of diabetes currently on insulin pump status post pancreatic transplant, end-stage renal disease status post renal transplant, CVA, coronary artery disease status post 2 stents, and multiple other comorbid conditions who presented with concerns about inguinal hernia is due to increased edema in his scrotal area and lower extremities. In the ER he underwent an extensive evaluation. On arrival his vital signs within normal limits. Laboratory analysis included CBC, coags, basic metabolic profile, AST, ALT, troponin, and BNP which was remarkable for hemoglobin 6, potassium 6.5, chloride 112, carbon dioxide 16, BUN 94, creatinine 4.02, glucose 252, troponin 0.032, and BNP 64,900. In the ER he was given temporizing measures for his hyperkalemia including IV insulin, calcium gluconate, and albuterol. Arrangements were made for admission. Case was discussed with nephrology. Cardiology also consulted. He required multiple doses of Lasix and lokalema for improvement in his potassium. He had good diuresis with lasix 60 mg IVP BID. His echo showed EF of 45-50%. He did have 24 hours of Lasix drip and then was transitioned back to IV Lasix with the addition of Zaroxolyn. Now being transitioned to oral Bumex. Continues to make adequate urine. Will likely need dialysis in the future. He needs to follow-up with his heddle machine operator in [place]. He also needs repeat BMP in 3 days, follow-up with a heddle machine operator here. Patient seen and examined at bedside. Vital signs reviewed and stable. General: nontoxic, no distress, appears at stated age Cardiovascular: S1S2 reg, no murmur, positive posterior tibial pulse bilateral, Lungs: Coarse breath sounds bilateral, no rhonchi, no rales , no accessory muscle use Abdominal: soft, nontender to palpation, no guarding, no appreciable organomegaly Ext: no gross muscle atrophy, 2+ lower extremity edema, no contractures Neuro: CN II-XI grossly intact, no focal neuro deficits Psych: Alert, oriented, appropriate affect A total of 36 minutes of time were spent preparing this complex discharge summary. Patient was discharged on 09/11/23 at 11:39. Patient Condition at Discharge: Stable Plan - Discharge Summary New Discharge Prescriptions: New Tacrolimus [Prograf] 2 mg PO BID #60 cap metOLazone [Zaroxolyn] 5 mg PO DAILY #60 tab Bumetanide [BUMEX] 2 mg PO BID #90 tab Continue predniSONE 5 mg PO DAILY Metoclopramide [Reglan] 5 mg PO TID Sodium Bicarbonate Tab 1,300 mg PO TID Omeprazole 40 mg PO DAILY carvediloL 25 mg PO BID Atorvastatin [Lipitor] 40 mg PO HS #30 tab Clopidogrel [Plavix] 75 mg PO DAILY #30 tab Insulin Aspart (For Pump) [NovoLOG (For Pump)] 0.01 unit SQ-PUMP CONTINUOUS #1 vial Mycophenolate Sodium [Mycophenolic Acid] 720 mg PO BID hydrALAZINE HCL [Apresoline] 100 mg PO TID Discontinued Tacrolimus [Prograf] 3 mg PO DAILY Losartan [Cozaar] 25 mg PO DAILY Gabapentin [Neurontin] 300 mg PO TID Tacrolimus [Prograf] 2 mg PO HS Discharge Medication List Metoclopramide [Reglan] 5 mg PO TID 10/06/19 [History] Omeprazole 40 mg PO DAILY 10/06/19 [History] Sodium Bicarbonate Tab 1,300 mg PO TID 10/06/19 [History] carvediloL 25 mg PO BID 10/06/19 [History] predniSONE 5 mg PO DAILY 10/06/19 [History] Atorvastatin [Lipitor] 40 mg PO HS #30 tab 10/08/19 [Rx] Clopidogrel [Plavix] 75 mg PO DAILY #30 tab 10/08/19 [Rx] Insulin Aspart (For Pump) [NovoLOG (For Pump)] 0.01 unit SQ-PUMP CONTINUOUS #1 vial 10/08/19 [Rx] Mycophenolate Sodium [Mycophenolic Acid] 720 mg PO BID 09/03/23 [History] hydrALAZINE HCL [Apresoline] 100 mg PO TID 09/03/23 [History] Bumetanide [BUMEX] 2 mg PO BID #90 tab 09/11/23 [Rx] Tacrolimus [Prograf] 2 mg PO BID #60 cap 09/11/23 [Rx] metOLazone [Zaroxolyn] 5 mg PO DAILY #60 tab 09/11/23 [Rx] Follow up Appointment(s)/Referral(s): None,Stated [Primary Care Provider] - 1-2 days Winnie Garcia MD [STAFF PHYSICIAN] - 1 Week Ambulatory/Diagnostic Orders: Basic Metabolic Panel [LAB.AMB] Time Frame: 3 Days, Location: None Selected Magnesium [LAB.AMB] Time Frame: 3 Days, Location: None Selected Patient Instructions/Handouts: Acute Kidney Injury (DC), Heart Failure (DC) Activity/Diet/Wound Care/Special Instructions: Please see nephrology. You need repeat blood work in 3 days. Discharge Disposition: HOME SELF-CARE
[2023-09-11] MEDS: DARBEPOETIN ALFA 60 MCG/0.3 ML SYRINGE SQ SCH (11:47)
[2023-09-11 11:51] LABS: Glucose,Whole Blood 108 mg/dL (70-110)
[2023-09-11 11:52] VITALS: BP 101/51; PULSE 69; RESP 17
[2023-09-11] MEDS ORDERED: BUMETANIDE 1 MG TAB PO SCH (21:00)
== END 2023-09-11 14:22 | disposition home or self-care (01) | DRG 291 ==
LOC: EC 10:13 → 5NMEDONC 12:47 → 3SCARD 20:35
PROVIDERS: ADMIT Student in an Organized Health Care Education/Training Program; ATTEND Student in an Organized Health Care Education/Training Program
DX: I13.2 Hypertensive heart and chronic kidney disease with heart failure and with stage 5 chronic kidney disease, or end stage renal disease (principal); I50.43 Acute on chronic combined systolic (congestive) and diastolic (congestive) heart failure; N17.0 Acute kidney failure with tubular necrosis; T86.19 Other complication of kidney transplant; T86.891 Other transplanted tissue failure; Z94.0 Kidney transplant status; E87.20 Acidosis, unspecified; Z94.83 Pancreas transplant status; Y83.0 Surgical operation with transplant of whole organ as the cause of abnormal reaction of the patient, or of later complication, without mention of misadventure at the time of the procedure; E87.5 Hyperkalemia; E11.51 Type 2 diabetes mellitus with diabetic peripheral angiopathy without gangrene; Z79.4 Long term (current) use of insulin; I25.10 Atherosclerotic heart disease of native coronary artery without angina pectoris; D64.9 Anemia, unspecified; E78.5 Hyperlipidemia, unspecified; E11.22 Type 2 diabetes mellitus with diabetic chronic kidney disease; N18.32 Chronic kidney disease, stage 3b; I1A.0 Resistant hypertension; D63.1 Anemia in chronic kidney disease; E83.42 Hypomagnesemia; F17.210 Nicotine dependence, cigarettes, uncomplicated; F32.A Depression, unspecified; I08.1 Rheumatic disorders of both mitral and tricuspid valves; G47.00 Insomnia, unspecified; K59.00 Constipation, unspecified; T50.2X5A Adverse effect of carbonic-anhydrase inhibitors, benzothiadiazides and other diuretics, initial encounter; Z79.02 Long term (current) use of antithrombotics/antiplatelets; Z79.52 Long term (current) use of systemic steroids; Z79.624 Long term (current) use of inhibitors of nucleotide synthesis; Z79.82 Long term (current) use of aspirin; Z79.899 Other long term (current) drug therapy; Z86.73 Personal history of transient ischemic attack (TIA), and cerebral infarction without residual deficits; Z95.5 Presence of coronary angioplasty implant and graft; Z96.41 Presence of insulin pump (external) (internal); X58.XXXA Exposure to other specified factors, initial encounter
CPT/HCPCS: 36415; 51702; 71046; 76770; 80048; 80053; 80180; 80197; 81001; 83036; 83540; 83550; 83605; 83735; 83880; 84100; 84132; 84484; 85025; 85027; 85610; 85730; 93005; 93306; 93970; 94640; 96374; 96375; 99285

== ENCOUNTER 2023-09-19 11:27 | Inpatient (IN) | payer MEDICARE ==
--- NOTE | 2023-09-19 11:33 | ED ---
General Adult HPI - General Source: RN notes reviewed <Mandi Garcia - Last Filed: 09/19/23 11:32> - General Source: patient, family, RN notes reviewed Limitations: no limitations <Karthik Conklin - Last Filed: 09/19/23 13:44> - General Stated complaint: kidney issue Time Seen by Provider: 09/19/23 11:32 - History of Present Illness Initial comments: 58-year-old male with past medical history significant for chronic kidney disease presents to the emergency department with a chief complaint of abnormal labs. Patient unwilling to provide much of history during quick note assessment. (Mandi Garcia) Patient is a pleasant 58-year-old male presenting to the emergency department with abnormal labs. is present and helps right history as patient is carlos ewhat a poor historian. Patient does have history of chronic kidney disease and previous renal transplant. Patient did go to his l tacker today and was advised come the emergency department. Patient feels a little bit lightheaded and fatigued. (Karthik Conklin) - Related Data Home Medications Medication Instructions Recorded Confirmed Metoclopramide [Reglan] 5 mg PO TID 10/06/19 09/03/23 Omeprazole 40 mg PO DAILY 10/06/19 09/03/23 Sodium Bicarbonate Tab 1,300 mg PO TID 10/06/19 09/03/23 carvediloL 25 mg PO BID 10/06/19 09/03/23 predniSONE 5 mg PO DAILY 10/06/19 09/03/23 Mycophenolate Sodium [Mycophenolic 720 mg PO BID 09/03/23 09/03/23 Acid] hydrALAZINE HCL [Apresoline] 100 mg PO TID 09/03/23 09/03/23 Previous Rx's Medication Instructions Recorded Atorvastatin [Lipitor] 40 mg PO HS #30 tab 10/08/19 Clopidogrel [Plavix] 75 mg PO DAILY #30 tab 10/08/19 Insulin Aspart (For Pump) [NovoLOG 0.01 unit SQ-PUMP CONTINUOUS #1 10/08/19 (For Pump)] vial Bumetanide [BUMEX] 2 mg PO BID #90 tab 09/11/23 Tacrolimus [Prograf] 2 mg PO BID #60 cap 09/11/23 metOLazone [Zaroxolyn] 5 mg PO DAILY #60 tab 09/11/23 Allergies Allergy/AdvReac Type Severity Reaction Status Date / Time No Known Drug Allergies Allergy Unknown Verified 09/19/23 12:15 Review of Systems ROS Other: All systems not noted in ROS Statement are negative. <Mandi Garcia - Last Filed: 09/19/23 11:32> ROS Other: All systems not noted in ROS Statement are negative. Constitutional: Denies: fever Eyes: Denies: eye pain ENT: Denies: ear pain Respiratory: Denies: cough Cardiovascular: Denies: chest pain Endocrine: Reports: fatigue Gastrointestinal: Denies: abdominal pain Genitourinary: Denies: urgency Musculoskeletal: Denies: back pain <Karthik Conklin - Last Filed: 09/19/23 13:44> ROS Statement: Those systems with pertinent positive or pertinent negative responses have been documented in the HPI. Past Medical History Past Medical History: Dialysis, Hyperlipidemia, Renal Disease Additional Past Medical History / Comment(s): pancreatitis, last dialysis 2012, hernia, History of Any Multi-Drug Resistant Organisms: None Reported Additional Past Surgical History / Comment(s): kidney and pancreases transplant 2012, lt arm fistul which has been reserved june 2019 Past Anesthesia/Blood Transfusion Reactions: No Reported Reaction Past Psychological History: Depression Smoking Status: Current every day smoker Past Alcohol Use History: Occasional Past Drug Use History: None Reported <Mandi Garcia - Last Filed: 09/19/23 11:32> General Exam <Mandi Garcia - Last Filed: 09/19/23 11:32> Limitations: no limitations General appearance: alert, in no apparent distress Head exam: Present: normocephalic Eye exam: Present: normal appearance Neck exam: Present: normal inspection Respiratory exam: Present: normal lung sounds bilaterally Cardiovascular Exam: Present: regular rate, normal rhythm GI/Abdominal exam: Present: soft. Absent: tenderness exam: Present: normal inspection Extremities exam: Present: normal inspection Neurological exam: Present: alert, normal gait. Absent: motor sensory deficit Psychiatric exam: Present: flat affect Skin exam: Present: other (Left inguinal and genital region erythema and moisture. Trace swelling. Mild tenderness.) <Karthik Conklin - Last Filed: 09/19/23 13:44> - General Exam Comments Initial Comments: Visual Physical Exam Vital signs reviewed General: Well-appearing, nontoxic, no acute distress. Head: Normocephalic, atraumatic Eyes: PERRLA, EOMI ENT: Airway patent Chest: Nonlabored breathing Skin: No visual rash, normal skin tone Neuro: Alert and oriented 3 Musculoskeletal: No gross abnormalities (Mandi Garcia) Course Vital Signs 09/19/23 09/19/23 12:10 13:15 Temperature 98.1 F 97.7 F Pulse Rate 67 67 Respiratory 18 18 Rate Blood Pressure 119/62 126/65 O2 Sat by Pulse 98 100 Oximetry Medical Decision Making - Lab Data Result diagrams: 09/19/23 12:17 09/19/23 12:17 <Karthik Conklin - Last Filed: 09/19/23 13:44> - Medical Decision Making Was pt. sent in by a medical professional or institution (, PA, CLUB FORMER, urgent care, hospital, or assisted...) When possible be specific @ -Patient was sent over from nephrology office Did you speak to anyone other than the patient for history (EMS, parent, family, police, friend...)? What history was obtained from this source @ - helps provide history as patient is a poor historian. Did you review nursing and triage notes (agree or disagree)? Why? @ -I reviewed and agree with nursing and triage notes Were old charts reviewed (outside hosp., previous admission, EMS record, old EKG, old radiological studies, urgent care reports/EKG's, assisted records)? Report findings @ -Previous admission reviewed Differential Diagnosis (chest pain, altered mental status, abdominal pain women, abdominal pain men, vaginal bleeding, weakness, fever, dyspnea, syncope, headache, dizziness, GI bleed, back pain, seizure, CVA, palpatations, mental health, musculoskeletal)? @ -Differential Weakness: Hypoglycemia, shock, sepsis, hyponatremia, anemia, infection, OK, ETOH, adverse medicine reaction, overdose, stroke, this is not meant to be an all-inclusive list. EKG interpreted by me (3pts min.). @ -As above X-rays interpreted by me (1pt min.). @ -None done CT interpreted by me (1pt min.). @ -None done U/S interpreted by me (1pt. min.). @ -None done What testing was considered but not performed or refused? (CT, X-rays, U/S, labs)? Why? @ -None What meds were considered but not given or refused? Why? @ -None Did you discuss the management of the patient with other professionals (professionals i.e. , PA, CL[employer], lab, RT, psych nurse, social welfare research worker, drapery and upholstery estimator, teacher, financial aid officer, residential case manager)? Give summary @ -Case was discussed with Dr. galvan, who will admit covering for hospital call. Was smoking cessation discussed for >3mins.? @ -No Was critical care preformed (if so, how long)? @ -No Were there social determinants of health that impacted care today? How? (Homelessness, low income, unemployed, alcoholism, drug addiction, transportation, low edu. Level, literacy, decrease access to med. care, residential, rehab)? @ -No Was there de-escalation of care discussed even if they declined (Discuss DNR or withdrawal of care, Hospice)? DNR status @ -No What co-morbidities impacted this encounter? (DM, HTN, Smoking, COPD, CAD, Cancer, CVA, ARF, Chemo, Hep., AIDS, mental health diagnosis, sleep apnea, morbid obesity)? @ -None Was patient admitted / discharged? Hospital course, mention meds given and route, prescriptions, significant lab abnormalities, going to OR and other pertinent info. @ -Patient and family are updated on results and plan. Patient admitted with nephrology consult. Admission orders written. Patient also be covered for concern with fungal infection left groin Undiagnosed new problem with uncertain prognosis? @ -No Drug Therapy requiring intensive monitoring for toxicity (Heparin, Nitro, Insulin, Cardizem)? @ -No Were any procedures done? @ -No Diagnosis/symptom? @ -Renal failure, fungal infection left groin Acute, or Chronic, or Acute on Chronic? @ -Acute on chronic, acute Uncomplicated (without systemic symptoms) or Complicated (systemic symptoms)? @ -default Side effects of treatment? @ -No Exacerbation, Progression, or Severe Exacerbation? @ -No Poses a threat to life or bodily function? How? (Chest pain, USA, OK, pneumonia, PE, COPD, DKA, ARF, appy, cholecystitis, CVA, Diverticulitis, Homicidal, Suicidal, threat to staff... and all critical care pts) @ -No (Karthik Conklin) - Lab Data Lab Results 09/19/23 09/19/23 09/19/23 Range/Units 12:17 12:17 12:17 WBC 6.1 (3.8-10.6) k/uL RBC 2.83 L (4.30-5.90) m/uL Hgb 8.7 L (13.0-17.5) gm/dL Hct 26.6 L (39.0-53.0) % MCV 94.0 (80.0-100.0) fL MCH 30.8 (25.0-35.0) pg MCHC 32.7 (31.0-37.0) g/dL RDW 13.2 (11.5-15.5) % Plt Count 227 (150-450) k/uL MPV 8.6 Neutrophils % 86 % Lymphocytes % 6 % Monocytes % 6 % Eosinophils % 1 % Basophils % 0 % Neutrophils # 5.3 (1.3-7.7) k/uL Lymphocytes # 0.4 L (1.0-4.8) k/uL Monocytes # 0.4 (0-1.0) k/uL Eosinophils # 0.1 (0-0.7) k/uL Basophils # 0.0 (0-0.2) k/uL PT 11.1 (10.0-12.5) sec INR 1.0 (<1.2) APTT 22.6 (22.0-30.0) sec Sodium 138 (137-145) mmol/L Potassium 4.0 (3.5-5.1) mmol/L Chloride 93 L (98-107) mmol/L Carbon Dioxide 26 (22-30) mmol/L Anion Gap 19 mmol/L BUN 158 H* (9-20) mg/dL Creatinine 5.02 H (0.66-1.25) mg/dL Est GFR (CKD-EPI)AfAm 14 (>60 ml/min/1.73 sqM) Est GFR (CKD-EPI)NonAf 12 (>60 ml/min/1.73 sqM) Glucose 185 H (74-99) mg/dL Calcium 9.5 (8.4-10.2) mg/dL Total Bilirubin 0.5 (0.2-1.3) mg/dL AST 15 L (17-59) U/L ALT 12 (4-49) U/L Alkaline Phosphatase 117 (38-126) U/L Total Protein 6.6 (6.3-8.2) g/dL Albumin 4.2 (3.5-5.0) g/dL Disposition <Mandi Garcia - Last Filed: 09/19/23 11:32> Is patient prescribed a controlled substance at d/c from ED?: No Time of Disposition: 13:42 <Karthik Conklin - Last Filed: 09/19/23 13:44> Clinical Impression: Kidney failure Disposition: ADMITTED IP TO THIS HOSP Condition: Serious Referrals: None,Stated [Primary Care Provider] - 1-2 days
[2023-09-19 12:38] LABS: Basophils % (A) 0 %; Eosinophils # (A) 0.1 k/uL (0-0.7); Eosinophils % (A) 1 %; HCT 26.6 % (39.0-53.0); HGB 8.7 gm/dL (13.0-17.5); Lymphocytes # (A) 0.4 k/uL (1.0-4.8); Lymphocytes % (A) 6 %; MCH 30.8 pg (25.0-35.0); MCHC 32.7 g/dL (31.0-37.0); Mean Platelet Volume 8.6; Monocytes # (A) 0.4 k/uL (0-1.0); Monocytes % (A) 6 %; Neutrophils # (A) 5.3 k/uL (1.3-7.7); Neutrophils % (A) 86 %; Platelet Count 227 k/uL (150-450); RBC 2.83 m/uL (4.30-5.90); RDW 13.2 % (11.5-15.5); WBC 6.1 k/uL (3.8-10.6)
[2023-09-19 12:49] LABS: ALT 12 U/L (4-49); AST 15 U/L (17-59); African American GFR (CKD) 14 (>60 ml/min/1.73 sqM); Albumin 4.2 g/dL (3.5-5.0); Alkaline Phosphatase 117 U/L (38-126); Anion Gap 19 mmol/L; Calcium 9.5 mg/dL (8.4-10.2); Carbon Dioxide 26 mmol/L (22-30); Chloride 93 mmol/L (98-107); Glucose 185 mg/dL (74-99); Non-African American GFR(CKD) 12 (>60 ml/min/1.73 sqM); Sodium 138 mmol/L (137-145); Total Bilirubin 0.5 mg/dL (0.2-1.3); Total Protein 6.6 g/dL (6.3-8.2)
[2023-09-19 12:53] LABS: Partial Thromboplastin Time 22.6 sec (22.0-30.0); Prothrombin Time 11.1 sec (10.0-12.5)
[2023-09-19 12:58] LABS: Blood Urea Nitrogen 158 mg/dL (9-20)
[2023-09-19] MEDS ORDERED: NALOXONE 0.4 MG/ML 1 ML VIAL IV PRN (13:46)
[2023-09-19] MEDS ORDERED: ACETAMINOPHEN TAB 325 MG TAB PO PRN (13:46)
[2023-09-19] MEDS: CEPHALEXIN 500 MG CAP PO SCH ×2 (13:58→22:14)
[2023-09-19 14:02] LABS: Magnesium 1.9 mg/dL (1.6-2.3); Phosphorus 7.5 mg/dL (2.5-4.5)
[2023-09-19 14:38] LABS: Appearance,Urine Clear (Clear); Bilirubin,Urine Negative (Negative); Blood,Urine Negative (Negative); Color,Urine Light Yellow; Glucose,Urine (UA) Negative (Negative); Ketones,Urine Negative (Negative); Leukocyte Esterase,Urine Negative (Negative); Nitrite,Urine Negative (Negative); Protein,Urine Trace (Negative); Specific Gravity,Urine 1.011 (1.001-1.035); Urobilinogen,Urine <2.0 mg/dL (<2.0)
[2023-09-19] MEDS: NYSTATIN 100,000 UNIT/GM POWD 15 GM TOPICAL SCH ×2 (15:10→22:17)
[2023-09-19] MEDS ORDERED: LACTULOSE 20 GM/30 ML CUP PO PRN (17:10)
[2023-09-19] MEDS ORDERED: ONDANSETRON 4 MG/2 ML VIAL IVP PRN (17:10)
[2023-09-19] MEDS ORDERED: MELATONIN 3 MG TABLET PO PRN (17:10)
--- NOTE | 2023-09-19 17:33 | P.HPIM ---
History of Present Illness H&P Date: 09/19/23 Patient is a 58 -year-old male with history of diabetes currently on insulin pump status post pancreatic transplant, end-stage renal disease, CVA, coronary artery disease status post 2 stents, and multiple other comorbid conditions who was recently hospitalized here from 09/03 through 09/11 due to acute kidney injury and acute exacerbation of diastolic congestive heart failure. He was subsequently discharged home and followed up with Dr. Garcia. He was noted to have worsening creatinine and therefore was referred to the hospital. On arrival to the emergency department he underwent an extensive evaluation. Initial vital signs within normal limits. Initial lab work consisted of CBC, coags, basic metabolic profile, liver enzymes, albumin, and urinalysis which were remarkable for hemoglobin 8.7, BUN 158, creatinine 5.02, and phosphorus 7.5. Arrangements were made for admission. Nephrology was consulted. Patient seen and examined at bedside. He states that he was sent from nephrology office for abnormal labs. He also complains of significant groin pain with groin infection. Vital signs reviewed General: nontoxic, no distress, appears at stated age Derm: warm, dry Eyes: EOMI, no lid lag, anicteric sclera, pupils equal round reactive to light ENT: Nose and ears atraumatic, no thrush, no pharyngeal erythema Cardiovascular: S1S2 reg, no murmur, positive posterior tibial pulse bilateral, 1+ edema b/l LE Lungs: clear to auscultation bilateral, no rhonchi, no rales, no wheeze, no accessory muscle use Abdominal: soft, nontender to palpation, no guarding, no appreciable organomegaly, normal bowel sounds Ext: no gross muscle atrophy, moving all 4 extremities independently, no contractures Neuro: CN II-XII grossly intact, no focal neurodeficits Psych: Alert, oriented, appropriate affect : Erythema, moisture in b/l groin with purulent material Chaparone: Trent Reeves RN Assessment/Plan: Acute exacerbation of congestive diastolic heart failure, EF 45-50% Acute kidney injury on 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 on immunosupression Anemia of chronic kidney disease Candidal groin infection - admit to inpatient, case discussed with Dr. Conklin - Start normal saline at 75 mL/h, hold Bumex and metabolism -Case discussed with Dr. Jose. Resume tacrolimus 2 mg twice daily and mycophenolate 720 mg twice daily, prednisone 5 mg daily -Check a.m. mycophenolate and tacrolimus levels, for a trough level -Check post void residual -Check CT abdomen and pelvis to rule out more aggressive groin infection -Sodium bicarbonate 1300 mg 3 times daily - avoid nephrotoxic agents - check CBC and BMP in AM due to anemia and renal dysfunction - nystatin powder 100,000 units TID - Fluconazole 100 mg daily Diabetes mellitus type 1, insulin requiring status post pancreatic transplant -Accu-Cheks every before meals and at bedtime, patient to continue with his home insulin pump. We will continue to monitor Accu-Cheks despite him having a [employer] Kathleen monitor to ensure there are no signs of insulin toxicity such as hypoglycemia. - A1C 7.9 09/06/23 Compensated diastolic congestive heart failure, EF 45-50% Coronary artery disease History of CVA Dyslipidemia -Plavix 75 mg daily, Coreg 25 mg oral twice daily - hold hydralazine 100 mg oral 3 times daily - hold bumex and metalozone Imaging: As per HPI Data Review: per HPI The patient is admitted with an anticipated greater than 2 midnight stay for evaluation of MARIO on CKD Surrogate decision-maker: Sister CODE STATUS:Full DVT prophylaxis: SCDs Anticipated discharge date: Pending Clinical Course Anticipated discharge place: Pending Clinical Course This dictation was prepared using [employer] voice recognition software. Though every attempt is made to correct errors during dictation some may still exist. Past Medical History Past Medical History: Coronary Artery Disease (CAD), CVA/TIA, Diabetes Mellitus, Dialysis, Hyperlipidemia, Hypertension, Renal Disease Additional Past Medical History / Comment(s): pancreatitis, last dialysis 2012, hernia, CHF History of Any Multi-Drug Resistant Organisms: None Reported Past Surgical History: Heart Catheterization With Stent Additional Past Surgical History / Comment(s): kidney and pancreases transplant 2012, lt arm fistula which has been reserved june 2019 Past Anesthesia/Blood Transfusion Reactions: No Reported Reaction Past Psychological History: Depression Smoking Status: Current every day smoker Past Alcohol Use History: Occasional Past Drug Use History: None Reported Medications and Allergies Home Medications Medication Instructions Recorded Confirmed Type Metoclopramide [Reglan] 5 mg PO TID 10/06/19 09/19/23 History Omeprazole 40 mg PO DAILY 10/06/19 09/19/23 History Sodium Bicarbonate Tab 1,300 mg PO TID 10/06/19 09/19/23 History carvediloL 25 mg PO BID 10/06/19 09/19/23 History predniSONE 5 mg PO DAILY 10/06/19 09/19/23 History Atorvastatin [Lipitor] 40 mg PO HS #30 tab 10/08/19 09/19/23 Rx Clopidogrel [Plavix] 75 mg PO DAILY #30 tab 10/08/19 09/19/23 Rx Insulin Aspart (For Pump) [NovoLOG 0.01 unit SQ-PUMP CONTINUOUS #1 10/08/19 09/19/23 Rx (For Pump)] vial Mycophenolate Sodium [Mycophenolic 720 mg PO BID 09/03/23 09/19/23 History Acid] hydrALAZINE HCL [Apresoline] 100 mg PO TID 09/03/23 09/19/23 History Bumetanide [BUMEX] 2 mg PO BID #90 tab 09/11/23 09/19/23 Rx Tacrolimus [Prograf] 2 mg PO BID #60 cap 09/11/23 09/19/23 Rx metOLazone [Zaroxolyn] 5 mg PO DAILY #60 tab 09/11/23 09/19/23 Rx Allergies Allergy/AdvReac Type Severity Reaction Status Date / Time No Known Drug Allergies Allergy Unknown Verified 09/19/23 14:27 Physical Exam Osteopathic Statement: *. No significant issues noted on an osteopathic structural exam other than those noted in the History and Physical/Consult. Vitals: Vital Signs Temp Pulse Resp BP Pulse Ox 09/19/23 13:15 97.7 F 67 18 126/65 100 09/19/23 12:10 98.1 F 67 18 119/62 98 Intake and Output 09/19/23 09/19/23 09/19/23 06:59 14:59 22:59 Other: Weight 65.771 kg Results CBC & Chem 7: 09/19/23 12:17 09/19/23 12:17 Labs: Abnormal Lab Results - Last 24 Hours (Table) 09/19/23 09/19/23 09/19/23 Range/Units 12:17 12:17 12:17 RBC 2.83 L (4.30-5.90) m/uL Hgb 8.7 L (13.0-17.5) gm/dL Hct 26.6 L (39.0-53.0) % Lymphocytes # 0.4 L (1.0-4.8) k/uL Chloride 93 L (98-107) mmol/L BUN 158 H* (9-20) mg/dL Creatinine 5.02 H (0.66-1.25) mg/dL Glucose 185 H (74-99) mg/dL Phosphorus (2.5-4.5) mg/dL AST 15 L (17-59) U/L Urine Protein Trace H (Negative) 09/19/23 Range/Units 12:17 RBC (4.30-5.90) m/uL Hgb (13.0-17.5) gm/dL Hct (39.0-53.0) % Lymphocytes # (1.0-4.8) k/uL Chloride (98-107) mmol/L BUN (9-20) mg/dL Creatinine (0.66-1.25) mg/dL Glucose (74-99) mg/dL Phosphorus 7.5 H (2.5-4.5) mg/dL AST (17-59) U/L Urine Protein (Negative)
[2023-09-19] MEDS: FLUCONAZOLE 100 MG TAB PO SCH (17:52)
[2023-09-19] MEDS: SODIUM CHLORIDE 0.9% 1,000 ML IV SCH (17:53)
[2023-09-19] MEDS: carvediloL 12.5 MG TAB PO SCH (17:53)
[2023-09-19] MEDS ORDERED: Insulin Aspart (For Pump) 100 UNIT/ML VIAL SQ-PUMP SCH (18:00)
--- NOTE | 2023-09-19 21:23 | CT ---
EXAMINATION TYPE: CT abdomen pelvis wo con DATE OF EXAM: 09/19/2023 COMPARISON: None HISTORY: 58-year-old male pain, Infection to groin area. Hypotension. Poor kidney function labs. Pt w as just in hospital for heart failure and kidney failure. CT DLP: 365.7 mGycm. Automated exposure control for dose reduction was used. TECHNIQUE: Contiguous axial scanning of the abdomen and pelvis without IV contrast. Coronal and sagit loly reconstructions performed. FINDINGS: Heart upper limits of normal in size without pericardial effusion. Scattered coronary artery calcific ations are present. Bandlike atelectasis or scarring at the periphery of the left base. No pleural ef fusion. Noncontrast appearance of the liver, adrenal glands, spleen, and atrophic pancreas unremarkable gross abnormality. Markedly atrophic ven[place]ie ira kidneys. Gallbladder mildly hydropic at 4.1 cm wide but without any surrounding inflammation. Likely due to fa sting state. Small 2.8 cm wide left paraumbilical hernia containing nonobstructed small bowel loops. Prominent ingested solid material within the stomach. No dilated small bowel, free fluid, or free air. Normal appendix. Moderate stool burden. Mild sigmoid diverticulosis. No pericolonic inflammatory plummer ge. Moderate circumferential bladder wall thickening. Prostate gland enlarged at 4.9 cm wide. There may be slight asymmetric soft tissue swelling along the left inguinal region. This are areas tran btle. No soft tissue air or abnormal confluent edema is seen. There is a transplant left pelvic kidney without hydronephrosis. Mixed soft tissue and calcification in the right side of the pelvis could represent a chronically garrett led previous transplant and should be correlated clinically. Bones: Facet arthropathy lower lumbar spine. IMPRESSION: 1. Very subtle asymmetric soft tissue swelling overlying the left inguinal region could represent mi ld cellulitis. No confluent edema, abscess, soft tissue air, or signs of a tracking infection. 2. Moderate circumferential bladder wall thickening may be chronic for the patient. Correlate to exc lude cystitis. 3. Atrophic ven[place]ie ira kidneys. Left lower quadrant transplant kidney. There is mixed soft tissue and ca lcification in the right side of the pelvis that could represent a failed previous transplant and tania uld be correlated clinically.
[2023-09-19] MEDS ORDERED: hydrALAZINE HCL 50 MG TAB PO SCH (22:00)
[2023-09-19] MEDS: MYCOPHENOLATE SODIUM DR 180 MG TABLET.DR PO SCH (22:12)
[2023-09-19] MEDS: TACROLIMUS 1 MG CAP PO SCH (22:13)
[2023-09-19] MEDS: SODIUM BICARBONATE TAB 650 MG TAB PO SCH (22:14)
[2023-09-19] MEDS: ATORVASTATIN 40 MG TAB PO SCH (22:14)
[2023-09-19] MEDS: METOCLOPRAMIDE 5 MG TAB PO SCH (22:15)
[2023-09-20 05:37] LABS: Glucose,Whole Blood 323 mg/dL (70-110)
[2023-09-20] MEDS: PANTOPRAZOLE 40 MG TABLET PO SCH (06:11)
[2023-09-20] MEDS: carvediloL 12.5 MG TAB PO SCH ×2 (06:12→16:12)
[2023-09-20] MEDS: SODIUM CHLORIDE 0.9% 1,000 ML IV SCH ×2 (06:15→18:17)
[2023-09-20] MEDS ORDERED: INSULIN PUMP BASAL RATES 1 EACH MISC MISCELLANE PRN (07:10)
[2023-09-20] MEDS ORDERED: INSPUCOR MISCELLANE PRN (07:10)
[2023-09-20 07:38] LABS: HGB 8.1 gm/dL (13.0-17.5); MCH 32.1 pg (25.0-35.0); MCHC 33.6 g/dL (31.0-37.0); MCV 95.5 fL (80.0-100.0); Mean Platelet Volume 7.8; Platelet Count 213 k/uL (150-450); RBC 2.51 m/uL (4.30-5.90); RDW 13.3 % (11.5-15.5); WBC 4.7 k/uL (3.8-10.6)
--- NOTE | 2023-09-20 07:38 | XR ---
EXAMINATION TYPE: XR chest 2V DATE OF EXAM: 09/20/2023 6:24 AM CLINICAL INDICATION:Male, 58 years old with history of Renal failure; [facility] COMPARISON: Chest radiographs from 09/03/2023 TECHNIQUE: XR chest 2V Frontal and lateral views of the chest. FINDINGS: Lungs/Pleura: There is no evidence of pleural effusion, focal consolidation, or pneumothorax. Pulmonary vascularity: Unremarkable. Heart/mediastinum: Cardiomediastinal silhouette is unremarkable. Musculoskeletal: No acute osseous pathology. Other findings: None IMPRESSION: No acute cardiopulmonary disease/process.
[2023-09-20 07:47] LABS: African American GFR (CKD) 14 (>60 ml/min/1.73 sqM); Anion Gap 18 mmol/L; Calcium 9.2 mg/dL (8.4-10.2); Carbon Dioxide 24 mmol/L (22-30); Chloride 95 mmol/L (98-107); Glucose 188 mg/dL (74-99); Non-African American GFR(CKD) 12 (>60 ml/min/1.73 sqM); Potassium 3.4 mmol/L (3.5-5.1); Sodium 137 mmol/L (137-145)
[2023-09-20 08:25] LABS: Blood Urea Nitrogen 158 mg/dL (9-20)
[2023-09-20] MEDS: NYSTATIN 100,000 UNIT/GM POWD 15 GM TOPICAL SCH ×3 (09:54→23:35)
[2023-09-20] MEDS: CEPHALEXIN 500 MG CAP PO SCH ×2 (09:54→23:34)
[2023-09-20] MEDS: METOCLOPRAMIDE 5 MG TAB PO SCH ×3 (09:54→23:34)
[2023-09-20] MEDS: SODIUM BICARBONATE TAB 650 MG TAB PO SCH ×3 (09:54→23:34)
[2023-09-20] MEDS: MYCOPHENOLATE SODIUM DR 180 MG TABLET.DR PO SCH ×2 (09:55→23:35)
[2023-09-20] MEDS: CLOPIDOGREL 75 MG TAB PO SCH (09:55)
[2023-09-20] MEDS: FLUCONAZOLE 100 MG TAB PO SCH (09:55)
[2023-09-20] MEDS: predniSONE 5 MG TAB PO SCH (09:55)
[2023-09-20] MEDS: TACROLIMUS 1 MG CAP PO SCH ×2 (09:56→23:34)
[2023-09-20] MEDS: INSULIN PUMP MEAL BOLUS 1 UNIT MISC MISCELLANE SCH ×4 (10:13→23:35)
[2023-09-20] MEDS ORDERED: SODIUM CHLORIDE 0.9% 500 ML 500 ML IV ONE (11:05)
[2023-09-20] MEDS ORDERED: POTASSIUM CHLORIDE ER 10 MEQ TAB.ER.PRT PO STA (11:13)
--- NOTE | 2023-09-20 11:16 | P.PN ---
Subjective Progress Note Date: 09/20/23 Hospital Course: 58 -year-old male with history of diabetes currently on insulin pump status post pancreatic transplant, end-stage renal disease, CVA, coronary artery disease status post 2 stents, and multiple other comorbid conditions who was recently hospitalized here from 09/03 through 09/11 due to acute kidney injury and acute exacerbation of diastolic congestive heart failure. He was subsequently discharged home and followed up with Dr. Garcia. He was noted to have worsening creatinine and therefore was referred to the hospital. nitial lab work consisted of CBC, coags, basic metabolic profile, liver enzymes, albumin, and urinalysis which were remarkable for hemoglobin 8.7, BUN 158, creatinine 5.02, and phosphorus 7.5. Arrangements were made for admission. Nephrology was consulted. Patient also has inguinal and scrotal cellulitis, bacterial versus fungal. Subjective: Continue and examined at bedside. No acute events overnight. Continues to have some inguinal pain. Pertinent positives and negatives as discussed above, a complete review of systems was performed and all other systems are negative. Vitals Signs Reviewed. General: nontoxic, no distress, appears at stated age Derm: warm, dry, bilateral inguinal and scrotal erythema Head: atraumatic, normocephalic, symmetric Eyes: EOMI, no lid lag, anicteric sclera Mouth: no lip lesion, mucus membranes moist Cardiovascular: S1S2 reg, no murmur Lungs: CTA bilateral, no rhonchi, no rales , no accessory muscle use Abdominal: soft, nontender to palpation, no guarding, no appreciable organomega ly Ext: no gross muscle atrophy, trace peripheral edema, no contractures Neuro: CN II-XI grossly intact, no focal neuro deficits Psych: Alert, oriented, appropriate affect Data Reviewed Today: Pertinent Labs: Hemoglobin 8.1, potassium 3.4 creatinine 4.87, BUN 158, WBC 4.7 Imaging: Chest x-ray independently interpreted, no opacities CT abdomen and pelvis report reviewed, shows very subtle asymmetric soft tissue swelling overlying the left inguinal region representing mild cellulitis Assessment and Plan: Acute kidney injury on 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 on immunosupression Anemia of chronic kidney disease Mild hypokalemia Inguinal and scrotal cellulitis Intertrigo -Nephrology following, pending recommendations -Continue normal saline IV at 75 mL an hour -10 mEq oral potassium given -Renal function slowly improving -Continue mycophenolate 720 mg twice a day, prednisone 5 mg daily, tacrolimus 2 mg twice a day -Oral bicarbonate 1300 mg 3 times a day -Blood count stable -Wound care consult -Continue topical nystatin powder 3 times a day, oral fluconazole 100 mg daily, and Keflex oral 500 mg every 12 hours Diabetes mellitus type 1, insulin requiring status post pancreatic transplant -Accu-Cheks every before meals and at bedtime, patient to continue with his home insulin pump. We will continue to monitor Accu-Cheks despite him having a [employer] Kathleen monitor to ensure there are no signs of insulin toxicity such as hypoglycemia. - A1C 7.9 09/06/23 Chronic: Compensated chronic diastolic congestive heart failure, EF 45-50% Coronary artery disease History of CVA Dyslipidemia -Plavix 75 mg daily, Coreg 25 mg oral twice daily - hold hydralazine 100 mg oral 3 times daily - hold bumex and metalozone DVT ppx: Subcu heparin Code status: Full code Anticipated discharge place: Home Anticipated discharge time: 1-2 days Objective - Vital Signs Vital signs: Vital Signs Temp 98.9 F 09/20/23 07:45 Pulse 70 09/20/23 07:45 Resp 20 09/20/23 07:45 BP 125/74 09/20/23 07:45 Pulse Ox 99 09/20/23 07:45 FiO2 Intake & Output 09/19/23 09/20/23 09/20/23 18:59 06:59 18:59 Output Total 200 Balance -200 Weight 65.771 kg 65.771 kg Output: Urine 200 Other: Voiding Method Toilet - Labs CBC & Chem 7: 09/20/23 06:46 09/20/23 06:46 Labs: Abnormal Lab Results - Last 24 Hours (Table) 09/19/23 09/19/23 09/19/23 Range/Units 12:17 12:17 12:17 RBC 2.83 L (4.30-5.90) m/uL Hgb 8.7 L (13.0-17.5) gm/dL Hct 26.6 L (39.0-53.0) % Lymphocytes # 0.4 L (1.0-4.8) k/uL Potassium (3.5-5.1) mmol/L Chloride 93 L (98-107) mmol/L BUN 158 H* (9-20) mg/dL Creatinine 5.02 H (0.66-1.25) mg/dL Glucose 185 H (74-99) mg/dL POC Glucose (mg/dL) (70-110) mg/dL Phosphorus (2.5-4.5) mg/dL AST 15 L (17-59) U/L Urine Protein Trace H (Negative) 09/19/23 09/20/23 09/20/23 Range/Units 12:17 05:36 06:46 RBC 2.51 L (4.30-5.90) m/uL Hgb 8.1 L (13.0-17.5) gm/dL Hct 24.0 L (39.0-53.0) % Lymphocytes # (1.0-4.8) k/uL Potassium (3.5-5.1) mmol/L Chloride (98-107) mmol/L BUN (9-20) mg/dL Creatinine (0.66-1.25) mg/dL Glucose (74-99) mg/dL POC Glucose (mg/dL) 323 H (70-110) mg/dL Phosphorus 7.5 H (2.5-4.5) mg/dL AST (17-59) U/L Urine Protein (Negative) 09/20/23 Range/Units 06:46 RBC (4.30-5.90) m/uL Hgb (13.0-17.5) gm/dL Hct (39.0-53.0) % Lymphocytes # (1.0-4.8) k/uL Potassium 3.4 L (3.5-5.1) mmol/L Chloride 95 L (98-107) mmol/L BUN 158 H* (9-20) mg/dL Creatinine 4.87 H (0.66-1.25) mg/dL Glucose 188 H (74-99) mg/dL POC Glucose (mg/dL) (70-110) mg/dL Phosphorus (2.5-4.5) mg/dL AST (17-59) U/L Urine Protein (Negative)
[2023-09-20 11:40] LABS: Glucose,Whole Blood 221 mg/dL (70-110)
--- NOTE | 2023-09-20 13:59 | P.NPCON ---
History of Present Illness - Reason for Consult acute renal failure - History of Present Illness Patient is a 58-year-old male with history of chronic kidney disease NKF stage 4-5 with underlying history of simultaneous kidney pancreas transplant in 2012. Pancreatic transplant has failed and patient has CK D with serum creatinine around 3.5 mg/dL last month. Patient had stated that about 2 months ago his GFR was around 30 in [place]. He was seen last month when he was admitted for fluid overload and CHF exacerbation. Serum creatinine was 3.8 on 09/11/2023. Patient is admitted again with worsening renal function. Serum creatinine was 5.0 on 09/19/2023 with BUN of 158. Patient was maintained on Bumex 2 mg twice a day along with Zaroxolyn 5 mg daily. He denies any complaints of nausea or vomiting. No history of abdominal pain fever chills or cough. Patient states that he has been voiding well. No complaints of shortness of breath. Lexapro swelling has improved significantly from last admission about a month ago. Review of Systems As per HPI Past Medical History Past Medical History: Coronary Artery Disease (CAD), CVA/TIA, Diabetes Mellitus, Dialysis, Hyperlipidemia, Hypertension, Renal Disease Additional Past Medical History / Comment(s): pancreatitis, last dialysis 2012, hernia, CHF History of Any Multi-Drug Resistant Organisms: None Reported Past Surgical History: Heart Catheterization With Stent Additional Past Surgical History / Comment(s): kidney and pancreases transplant 2012, lt arm fistula which has been reserved june 2019 Past Anesthesia/Blood Transfusion Reactions: No Reported Reaction Date of Last Stent Placement:: 2022 Past Psychological History: Depression Smoking Status: Former smoker Past Alcohol Use History: Occasional Additional Past Alcohol Use History / Comment(s): 1 pack per week Past Drug Use History: None Reported Medications and Allergies Home Medications Medication Instructions Recorded Confirmed Type Metoclopramide [Reglan] 5 mg PO TID 10/06/19 09/19/23 History Omeprazole 40 mg PO DAILY 10/06/19 09/19/23 History Sodium Bicarbonate Tab 1,300 mg PO TID 10/06/19 09/19/23 History carvediloL 25 mg PO BID 10/06/19 09/19/23 History predniSONE 5 mg PO DAILY 10/06/19 09/19/23 History Atorvastatin [Lipitor] 40 mg PO HS #30 tab 10/08/19 09/19/23 Rx Clopidogrel [Plavix] 75 mg PO DAILY #30 tab 10/08/19 09/19/23 Rx Insulin Aspart (For Pump) [NovoLOG 0.01 unit SQ-PUMP CONTINUOUS #1 10/08/19 09/19/23 Rx (For Pump)] vial Mycophenolate Sodium [Mycophenolic 720 mg PO BID 09/03/23 09/19/23 History Acid] hydrALAZINE HCL [Apresoline] 100 mg PO TID 09/03/23 09/19/23 History Bumetanide [BUMEX] 2 mg PO BID #90 tab 09/11/23 09/19/23 Rx Tacrolimus [Prograf] 2 mg PO BID #60 cap 09/11/23 09/19/23 Rx metOLazone [Zaroxolyn] 5 mg PO DAILY #60 tab 09/11/23 09/19/23 Rx Allergies Allergy/AdvReac Type Severity Reaction Status Date / Time No Known Drug Allergies Allergy Unknown Verified 09/19/23 14:27 Physical Exam Vitals: Vital Signs Temp Pulse Pulse Resp BP BP Pulse Ox 09/20/23 07:45 98.9 F 70 20 125/74 99 09/20/23 02:00 97.7 F 74 17 124/70 96 09/19/23 22:20 97.8 F 70 18 129/73 95 09/19/23 18:00 97.9 F 69 20 129/70 100 09/19/23 17:00 71 18 115/69 98 Intake and Output 09/19/23 09/20/23 09/20/23 22:59 06:59 14:59 Output Total 200 100 Balance -200 -100 Output: Urine 200 Post Void Residual 100 Other: Voiding Method Toilet Weight 65.771 kg Patient is awake, comfortable, no acute distress Alert oriented 3 Examination of the heart S1 and S2 Examination of the lungs bilateral breath sounds are heard Abdomen is soft nontender Examination of the lower extremities shows 1+ edema bilaterally with chronic skin changes 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 Acute kidney injury secondary to recent diuresis. Patient is currently asymptomatic. I have discussed renal replacement therapy with the patient. At this time there is no indication to proceed with acute hemodialysis however if the renal function does not improve significantly he will need to start renal replacement therapy soon. At this time expect improvement in renal function with hydration and withholding diuretics. 2. Status post simultaneous kidney pancreas transplant in 2012 with failed pancreatic transplant. Patient is visiting from [place]. He is maintained on Prograf and CellCept along with prednisone. 3. Hypokalemia associated with diuresis 4. Anemia with no evidence of iron deficiency. Mostly anemia of chronic disease 5. Metabolic acidosis associated with CK D and chronic use of calcineurin inhibitors maintained on sodium bicarb, CO2 is 24 Plan: Agree with holding diuretics Replace potassium IV fluid bolus 1 and continue with saline at 75 mL an hour Repeat labs in a.m. Check post void residual Check trough Prograf level Patient is currently largely asymptomatic. I will hold off on renal replacement therapy. We will continue to monitor on a daily basis. So far serum creatinine has decreased slightly. Thank you for the consultation. We will continue to follow the patient with you during his hospitalization.
[2023-09-20] MEDS: HEPARIN SODIUM,PORCINE 5,000 UNIT/ML 1 ML VIAL SQ SCH ×2 (16:12→23:36)
[2023-09-20 16:24] LABS: Glucose,Whole Blood 306 mg/dL (70-110)
[2023-09-20 21:06] LABS: Glucose,Whole Blood 248 mg/dL (70-110)
[2023-09-20] MEDS: ATORVASTATIN 40 MG TAB PO SCH (23:34)
[2023-09-21 06:23] LABS: Glucose,Whole Blood 204 mg/dL (70-110)
[2023-09-21] MEDS: PANTOPRAZOLE 40 MG TABLET PO SCH (06:34)
[2023-09-21] MEDS: INSULIN PUMP MEAL BOLUS 1 UNIT MISC MISCELLANE SCH ×4 (07:30→21:32)
[2023-09-21 07:47] LABS: Basophils % (A) 0 %; Eosinophils # (A) 0.1 k/uL (0-0.7); Eosinophils % (A) 2 %; HCT 24.1 % (39.0-53.0); HGB 7.9 gm/dL (13.0-17.5); Lymphocytes # (A) 0.7 k/uL (1.0-4.8); Lymphocytes % (A) 16 %; MCHC 32.7 g/dL (31.0-37.0); MCV 94.8 fL (80.0-100.0); Mean Platelet Volume 8.3; Monocytes # (A) 0.4 k/uL (0-1.0); Monocytes % (A) 9 %; Neutrophils # (A) 3.1 k/uL (1.3-7.7); Neutrophils % (A) 72 %; Platelet Count 224 k/uL (150-450); RBC 2.54 m/uL (4.30-5.90); RDW 13.1 % (11.5-15.5); WBC 4.3 k/uL (3.8-10.6)
[2023-09-21 07:57] LABS: African American GFR (CKD) 15 (>60 ml/min/1.73 sqM); Anion Gap 16 mmol/L; Chloride 99 mmol/L (98-107); Glucose 169 mg/dL (74-99); Magnesium 1.7 mg/dL (1.6-2.3); Non-African American GFR(CKD) 13 (>60 ml/min/1.73 sqM)
[2023-09-21 08:20] LABS: Carbon Dioxide 22 mmol/L (22-30); Potassium 3.8 mmol/L (3.5-5.1); Sodium 137 mmol/L (137-145)
[2023-09-21 08:33] LABS: Blood Urea Nitrogen 141 mg/dL (9-20)
[2023-09-21] MEDS: carvediloL 12.5 MG TAB PO SCH ×2 (10:12→17:12)
[2023-09-21] MEDS: SODIUM BICARBONATE TAB 650 MG TAB PO SCH ×3 (10:12→20:22)
[2023-09-21] MEDS: CEPHALEXIN 500 MG CAP PO SCH ×2 (10:13→20:22)
[2023-09-21] MEDS: HEPARIN SODIUM,PORCINE 5,000 UNIT/ML 1 ML VIAL SQ SCH ×3 (10:13→23:48)
[2023-09-21] MEDS: MYCOPHENOLATE SODIUM DR 180 MG TABLET.DR PO SCH ×2 (10:13→20:23)
[2023-09-21] MEDS: FLUCONAZOLE 100 MG TAB PO SCH (10:13)
[2023-09-21] MEDS: CLOPIDOGREL 75 MG TAB PO SCH (10:13)
[2023-09-21] MEDS: METOCLOPRAMIDE 5 MG TAB PO SCH ×3 (10:14→20:22)
[2023-09-21] MEDS: predniSONE 5 MG TAB PO SCH (10:14)
[2023-09-21] MEDS: TACROLIMUS 1 MG CAP PO SCH ×2 (10:14→20:21)
[2023-09-21] MEDS: NYSTATIN 100,000 UNIT/GM POWD 15 GM TOPICAL SCH ×3 (10:14→23:17)
[2023-09-21] MEDS: SODIUM CHLORIDE 0.9% 1,000 ML IV SCH ×2 (10:24→23:17)
--- NOTE | 2023-09-21 11:06 | P.PN ---
Subjective Patient is seen for follow-up for acute kidney injury and top of chronic kidney disease. He is currently maintained on IV fluids. No complaints of shortness of breath Good urine output Serum creatinine improved slightly to 4.7 mg/dL with BUN down to 141. Objective - Vital Signs Vital signs: Vital Signs Temp 98.3 F 09/21/23 07:36 Pulse 66 09/21/23 07:36 Resp 20 09/21/23 07:36 BP 132/79 09/21/23 07:36 Pulse Ox 99 09/21/23 07:36 FiO2 Intake & Output 09/20/23 09/21/23 09/21/23 18:59 06:59 18:59 Output Total 100 920 Balance -100 -920 Output: Urine 720 Post Void Residual 100 200 Other: Voiding Method Urinal # Voids 2 # Bowel Movements 1 - Exam Patient is awake, comfortable, no acute distress Alert oriented 3 Examination of the heart S1 and S2 Examination of the lungs bilateral breath sounds are heard Abdomen is soft nontender Examination of the lower extremities shows 2+ edema bilaterally with chronic skin changes 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70 H (0.66-1.25) mg/dL Glucose 169 H (74-99) mg/dL POC Glucose (mg/dL) 204 H (70-110) mg/dL Assessment and Plan Assessment: 1. Acute kidney injury secondary to recent diuresis. Patient is currently asymptomatic. I have discussed renal replacement therapy with the patient. At this time there is no indication to proceed with acute hemodialysis however if the renal function does not improve significantly he will need to start renal replacement therapy soon. At this time expect improvement in renal function with hydration and withholding diuretics. 2. Status post simultaneous kidney pancreas transplant in 2012 with failed pancreatic transplant. Patient is visiting from [place]. He is maintained on Prograf and CellCept along with prednisone. 3. Hypokalemia associated with diuresis 4. Anemia with no evidence of iron deficiency. Mostly anemia of chronic disease 5. Metabolic acidosis associated with CK D and chronic use of calcineurin inhibitors maintained on sodium bicarb, CO2 is 24 Plan: Continue IV fluids for 1 more day Can resume lower dose of diuretics upon discharge with close monitoring of renal function as outpatient. Follow-up in the office in one week post discharge. Maintain salt and fluid restriction.
--- NOTE | 2023-09-21 11:39 | P.PN ---
Subjective Progress Note Date: 09/21/23 Hospital Course: 58 -year-old male with history of diabetes currently on insulin pump status post pancreatic transplant, end-stage renal disease, CVA, coronary artery disease status post 2 stents, and multiple other comorbid conditions who was recently hospitalized here from 09/03 through 09/11 due to acute kidney injury and acute exacerbation of diastolic congestive heart failure. He was subsequently discharged home and followed up with Dr. Garcia. He was noted to have worsening creatinine and therefore was referred to the hospital. nitial lab work consisted of CBC, coags, basic metabolic profile, liver enzymes, albumin, and urinalysis which were remarkable for hemoglobin 8.7, BUN 158, creatinine 5.02, and phosphorus 7.5. Arrangements were made for admission. Nephrology was consulted. Patient also has inguinal and scrotal cellulitis, bacterial versus fungal. Renal function improving. CT abdomen and pelvis shows very subtle asymmetric soft tissue swelling overlying the left inguinal region representing mild cellulitis Subjective: Continue and examined at bedside. No acute events overnight. Continues to have some inguinal pain. Pertinent positives and negatives as discussed above, a complete review of systems was performed and all other systems are negative. Vitals Signs Reviewed. General: nontoxic, no distress, appears at stated age Derm: warm, dry, bilateral inguinal and scrotal erythema Head: atraumatic, normocephalic, symmetric Eyes: EOMI, no lid lag, anicteric sclera Mouth: no lip lesion, mucus membranes moist Cardiovascular: S1S2 reg, no murmur Lungs: CTA bilateral, no rhonchi, no rales , no accessory muscle use Abdominal: soft, nontender to palpation, no guarding, no appreciable organomegaly Ext: no gross muscle atrophy, trace peripheral edema, no contractures Neuro: CN II-XI grossly intact, no focal neuro deficits Psych: Alert, oriented, appropriate affect Data Reviewed Today: Pertinent Labs: Hemoglobin 7.9, BUN 141, creatinine 4.7, blood sugars range between 169-248 Imaging: No new imaging Assessment and Plan: Acute kidney injury on 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 on immunosupression Anemia of chronic kidney disease Mild hypokalemia, resolved Inguinal and scrotal cellulitis Intertrigo -Discussed management with nephrology, continue normal saline at 75 mL an hour -Renal function slowly improving -Continue mycophenolate 720 mg twice a day, prednisone 5 mg daily, tacrolimus 2 mg twice a day -Oral bicarbonate 1300 mg 3 times a day -Blood count stable -Wound care consult -Continue topical nystatin powder 3 times a day, oral fluconazole 100 mg daily, and Keflex oral 500 mg every 12 hours Diabetes mellitus type 1, insulin requiring status post pancreatic transplant -Accu-Cheks every before meals and at bedtime, patient to continue with his home insulin pump. We will continue to monitor Accu-Cheks despite him having a [employer] Kathleen monitor to ensure there are no signs of insulin toxicity such as hypoglycemia. - A1C 7.9 09/06/23 Chronic: Compensated chronic diastolic congestive heart failure, EF 45-50% Coronary artery disease History of CVA Dyslipidemia -Plavix 75 mg daily, Coreg 25 mg oral twice daily - hold hydralazine 100 mg oral 3 times daily - hold bumex and metalozone DVT ppx: Subcu heparin Code status: Full code Anticipated discharge place: Home Anticipated discharge time: Likely tomorrow Objective - Vital Signs Vital signs: Vital Signs Temp 98.3 F 09/21/23 07:36 Pulse 66 09/21/23 07:36 Resp 20 09/21/23 07:36 BP 132/79 09/21/23 07:36 Pulse Ox 99 09/21/23 07:36 FiO2 Intake & Output 09/20/23 09/21/23 09/21/23 18:59 06:59 18:59 Output Total 100 920 Balance -100 -920 Output: Urine 720 Post Void Residual 100 200 Other: Voiding Method Urinal # Voids 2 # Bowel Movements 1 - Labs CBC & Chem 7: 09/21/23 07:03 09/21/23 07:03 Labs: Abnormal Lab Results - Last 24 Hours (Table) 09/20/23 09/20/23 09/20/23 Range/Units 11:38 16:23 21:04 RBC (4.30-5.90) m/uL Hgb (13.0-17.5) gm/dL Hct (39.0-53.0) % Lymphocytes # (1.0-4.8) k/uL BUN (9-20) mg/dL Creatinine (0.66-1.25) mg/dL Glucose (74-99) mg/dL POC Glucose (mg/dL) 221 H 306 H 248 H (70-110) mg/dL 09/21/23 09/21/23 09/21/23 Range/Units 06:20 07:03 07:03 RBC 2.54 L (4.30-5.90) m/uL Hgb 7.9 L (13.0-17.5) gm/dL Hct 24.1 L (39.0-53.0) % Lymphocytes # 0.7 L (1.0-4.8) k/uL BUN 141 H* (9-20) mg/dL Creatinine 4.70 H (0.66-1.25) mg/dL Glucose 169 H (74-99) mg/dL POC Glucose (mg/dL) 204 H (70-110) mg/dL
[2023-09-21 11:43] LABS: Glucose,Whole Blood 308 mg/dL (70-110)
--- NOTE | 2023-09-21 15:28 | CDI ---
Documentation Clarification Form Date: 09/21/2023 03:02:02 PM From: Henrietta Red RN, CCDS Admit Date: 09/19/2023 01:46:00 PM Patient Name: Richar Olson Visit Number: [id number] Discharge Date: ATTENTION: The Clinical Documentation Specialists (CDI) and [facility] Coding Staff appreciate your assistance in clarifying documentation. Please respond to the clarification below the line at the bottom and electronically sign. The CDI & [facility] Coding staff will review the response and follow-up if needed. Please note: Queries are made part of the Legal Health Record. If you have any questions, please contact the author of this message via ITS. Dr. Keyon Hugo Conflicting documentation has been found in the medical record. We are not able to pick from the range provided. As attending physician, please provide clarification. 09/20/23 Nephrology consult: Chronic kidney disease NKF stage 4-5 with underlying history of simultaneous kidney pancreas transplant in 2012. 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 History/Risk Factors: Hyperlipidemia, Renal Disease last dialysis 2012, Current every day smoker Clinical Indicators: 58-year-old male with complaint of abnormal labs. Patient had stated that about 2 months ago his GFR was around 30 in [place]. He was seen last month when he was admitted for fluid overload and CHF exacerbation. Serum creatinine was 3.8 on 09/11/2023. 09/19 BUN 158 CR 5.02 GFR 12 09/20 BUN 158 CR 4.87 GFR 12 09/21 BUN 141 CR 4.70 GFR 13 Treatment: .9 % Saline 500 ML IV bolus x1 and continue with saline @ 75 ml/hr monitor daily labs per orders Check post void residual Check trough Prograf level Sodium Bicarbonate Tab 1,300 MG PO TID 09/19-09/21 Prograf 2 MG PO BID 09/19-09/21 Please clarify which diagnosis is most appropriate: [ ] CKD Stage 3 (GFR 30-59) [ ] CKD Stage 3a (GFR 45-59) [ ] CKD Stage 3b (GFR 30-44) [ ] CKD Stage 4 (GFR 15-29) [ x ] CKD Stage 5 (GFR <15) [ ] ESRD [ ] Other, please specify [ ] Unable to determine (Template Last Revised: January 2021) MTDD
[2023-09-21 17:01] LABS: Glucose,Whole Blood 369 mg/dL (70-110)
[2023-09-21 20:13] LABS: Glucose,Whole Blood 132 mg/dL (70-110)
[2023-09-21 20:15] VITALS: RESP 18
[2023-09-21] MEDS: ATORVASTATIN 40 MG TAB PO SCH (20:21)
[2023-09-22 06:17] LABS: Glucose,Whole Blood 150 mg/dL (70-110)
[2023-09-22 08:00] LABS: Basophils % (A) 0 %; Eosinophils # (A) 0.1 k/uL (0-0.7); Eosinophils % (A) 1 %; HGB 7.7 gm/dL (13.0-17.5); Lymphocytes # (A) 0.7 k/uL (1.0-4.8); Lymphocytes % (A) 13 %; MCH 30.3 pg (25.0-35.0); MCHC 32.1 g/dL (31.0-37.0); MCV 94.1 fL (80.0-100.0); Mean Platelet Volume 7.9; Monocytes # (A) 0.4 k/uL (0-1.0); Monocytes % (A) 7 %; Neutrophils # (A) 4.1 k/uL (1.3-7.7); Neutrophils % (A) 77 %; Platelet Count 205 k/uL (150-450); RBC 2.55 m/uL (4.30-5.90); RDW 13.2 % (11.5-15.5); WBC 5.4 k/uL (3.8-10.6)
[2023-09-22 08:25] LABS: African American GFR (CKD) 19 (>60 ml/min/1.73 sqM); Anion Gap 14 mmol/L; Calcium 9.1 mg/dL (8.4-10.2); Carbon Dioxide 21 mmol/L (22-30); Chloride 104 mmol/L (98-107); Glucose 125 mg/dL (74-99); Non-African American GFR(CKD) 16 (>60 ml/min/1.73 sqM); Potassium 3.6 mmol/L (3.5-5.1); Sodium 139 mmol/L (137-145)
[2023-09-22] MEDS: MYCOPHENOLATE SODIUM DR 180 MG TABLET.DR PO SCH (08:34)
[2023-09-22] MEDS: HEPARIN SODIUM,PORCINE 5,000 UNIT/ML 1 ML VIAL SQ SCH (08:34)
[2023-09-22] MEDS: CEPHALEXIN 500 MG CAP PO SCH (08:35)
[2023-09-22] MEDS: CLOPIDOGREL 75 MG TAB PO SCH (08:35)
[2023-09-22] MEDS: carvediloL 12.5 MG TAB PO SCH (08:35)
[2023-09-22] MEDS: predniSONE 5 MG TAB PO SCH (08:35)
[2023-09-22] MEDS: METOCLOPRAMIDE 5 MG TAB PO SCH (08:35)
[2023-09-22] MEDS: FLUCONAZOLE 100 MG TAB PO SCH (08:35)
[2023-09-22] MEDS: SODIUM BICARBONATE TAB 650 MG TAB PO SCH (08:35)
[2023-09-22] MEDS: NYSTATIN 100,000 UNIT/GM POWD 15 GM TOPICAL SCH (08:38)
[2023-09-22 08:42] LABS: Blood Urea Nitrogen 130 mg/dL (9-20)
[2023-09-22] MEDS: PANTOPRAZOLE 40 MG TABLET PO SCH (08:50)
[2023-09-22 08:58] VITALS: BP 137/78; PULSE 71; TEMP 97.8
[2023-09-22] MEDS: INSULIN PUMP MEAL BOLUS 1 UNIT MISC MISCELLANE SCH (10:02)
--- NOTE | 2023-09-22 11:15 | P.DS ---
Providers Date of admission: 09/19/23 13:46 Expected date of discharge: 09/22/23 Attending physician: Mervat Salgado DO Consults: 09/19/23 13:46 Consult Physician Urgent Consulting Provider: Winnie Garcia Consult Reason/Comments: Renal failure Do you want consulting provider notified?: Yes Primary care physician: Stated None Hospital Course: Discharge Diagnosis: Acute kidney injury on 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 on immunosupression Anemia of chronic kidney disease Mild hypokalemia Inguinal and scrotal cellulitis Intertrigo Diabetes mellitus type 1, insulin requiring status post pancreatic transplant Hospital Course: 58 -year-old male with history of diabetes currently on insulin pump status post pancreatic transplant, end-stage renal disease, CVA, coronary artery disease status post 2 stents, and multiple other comorbid conditions who was recently hospitalized here from 09/03 through 09/11 due to acute kidney injury and acute exacerbation of diastolic congestive heart failure. He was subsequently discharged home and followed up with Dr. Garcia. He was noted to have worsening creatinine and therefore was referred to the hospital. nitial lab work consisted of CBC, coags, basic metabolic profile, liver enzymes, albumin, and urinalysis which were remarkable for hemoglobin 8.7, BUN 158, creatinine 5.02, and phosphorus 7.5. Arrangements were made for admission. Nephrology was consulted. Patient also has inguinal and scrotal cellulitis, bacterial versus fungal. Renal function improving with fluids. CT abdomen and pelvis shows very subtle asymmetric soft tissue swelling overlying the left inguinal region representing mild cellulitis. Patient being discharged on oral and topical antifungal as well as oral antibiotic. He will also follow-up with his parasitologist within a week. Patient seen and examined at bedside. Vital signs reviewed and stable. General: nontoxic, no distress, appears at stated age Derm: warm, dry, bilateral inguinal and scrotal erythema improved Head: atraumatic, normocephalic, symmetric Eyes: EOMI, no lid lag, anicteric sclera Mouth: no lip lesion, mucus membranes moist Cardiovascular: S1S2 reg, no murmur Lungs: CTA bilateral, no rhonchi, no rales , no accessory muscle use Abdominal: soft, nontender to palpation, no guarding, no appreciable organomegaly Ext: no gross muscle atrophy, trace peripheral edema, no contractures Neuro: CN II-XI grossly intact, no focal neuro deficits Psych: Alert, oriented, appropriate affect A total of 33 minutes of time were spent preparing this complex discharge summary. Patient was discharged on 09/22/23 at 10:59. Patient Condition at Discharge: Stable Plan - Discharge Summary Discharge Rx Participant: Yes New Discharge Prescriptions: New Bumetanide [BUMEX] 1 mg PO BID@0900,1600 #90 tab Fluconazole [Diflucan] 100 mg PO DAILY #3 tab Cephalexin [Keflex] 500 mg PO Q12HR #6 cap Nystatin 100,000 Unit/gm Powd [Mycostatin Powder] 1 applic TOPICAL TID #14 each Continue predniSONE 5 mg PO DAILY Metoclopramide [Reglan] 5 mg PO TID Sodium Bicarbonate Tab 1,300 mg PO TID Omeprazole 40 mg PO DAILY carvediloL 25 mg PO BID Atorvastatin [Lipitor] 40 mg PO HS #30 tab Clopidogrel [Plavix] 75 mg PO DAILY #30 tab Insulin Aspart (For Pump) [NovoLOG (For Pump)] 0.01 unit SQ-PUMP CONTINUOUS #1 vial Mycophenolate Sodium [Mycophenolic Acid] 720 mg PO BID Changed Tacrolimus [Prograf] 1 mg PO BID #60 cap Discontinued metOLazone [Zaroxolyn] 5 mg PO DAILY #60 tab hydrALAZINE HCL [Apresoline] 100 mg PO TID Bumetanide [BUMEX] 2 mg PO BID #90 tab Discharge Medication List Metoclopramide [Reglan] 5 mg PO TID 10/06/19 [History] Omeprazole 40 mg PO DAILY 10/06/19 [History] Sodium Bicarbonate Tab 1,300 mg PO TID 10/06/19 [History] carvediloL 25 mg PO BID 10/06/19 [History] predniSONE 5 mg PO DAILY 10/06/19 [History] Atorvastatin [Lipitor] 40 mg PO HS #30 tab 10/08/19 [Rx] Clopidogrel [Plavix] 75 mg PO DAILY #30 tab 10/08/19 [Rx] Insulin Aspart (For Pump) [NovoLOG (For Pump)] 0.01 unit SQ-PUMP CONTINUOUS #1 vial 10/08/19 [Rx] Mycophenolate Sodium [Mycophenolic Acid] 720 mg PO BID 09/03/23 [History] Bumetanide [BUMEX] 1 mg PO BID@0900,1600 #90 tab 09/22/23 [Rx] Cephalexin [Keflex] 500 mg PO Q12HR #6 cap 09/22/23 [Rx] Fluconazole [Diflucan] 100 mg PO DAILY #3 tab 09/22/23 [Rx] Nystatin 100,000 Unit/gm Powd [Mycostatin Powder] 1 applic TOPICAL TID #14 each 09/22/23 [Rx] Tacrolimus [Prograf] 1 mg PO BID #60 cap 09/22/23 [Rx] Follow up Appointment(s)/Referral(s): Winnie Garcia MD [STAFF PHYSICIAN] - 1 Week None,Stated [Primary Care Provider] - 1-2 days Ambulatory/Diagnostic Orders: Basic Metabolic Panel [LAB.AMB] Time Frame: 1 Week, Location: None Selected Magnesium [LAB.AMB] Time Frame: 1 Week, Location: None Selected Miscellaneous Lab Order [LAB.AMB] Time Frame: 1 Week, Location: None Selected Activity/Diet/Wound Care/Special Instructions: Please see nephrology. Blood work to be done in 1 week. Restart prograf on Sunday at 1 twice a day. Discharge Disposition: HOME SELF-CARE
[2023-09-22 11:22] LABS: Glucose,Whole Blood 190 mg/dL (70-110)
--- NOTE | 2023-09-22 11:23 | P.PN ---
Subjective Patient is seen for follow-up for acute kidney injury and top of chronic kidney disease. He is currently maintained on IV fluids. No complaints of shortness of breath Good urine output Serum creatinine improved slightly to 3.8 mg/dL with BUN down to 130. Tacrolimus level was elevated at 14.6. Prograf held yesterday. Objective - Vital Signs Vital signs: Vital Signs Temp 97.8 F 09/22/23 07:52 Pulse 71 09/22/23 07:52 Resp 18 09/22/23 07:52 BP 137/78 09/22/23 07:52 Pulse Ox 98 09/22/23 07:52 FiO2 Intake & Output 09/21/23 09/22/23 09/22/23 18:59 06:59 18:59 Output Total 1450 950 Balance -1450 -950 Output: Urine 1450 950 Other: Voiding Method Urinal Urinal - Exam Patient is awake, comfortable, no acute distress Alert oriented 3 Examination of the heart S1 and S2 Examination of the lungs bilateral breath sounds are heard Abdomen is soft nontender Examination of the lower extremities shows 2+ edema bilaterally with chronic skin changes STOCK FITTER exam grossly intact No asterixis noted - Labs CBC & Chem 7: 09/22/23 06:57 09/22/23 06:57 Labs: Abnormal Lab Results - Last 24 Hours (Table) 09/21/23 09/21/23 09/21/23 Range/Units 11: 17:00 20:10 RBC (4.30-5.90) m/uL Hgb (13.0-17.5) gm/dL Hct (39.0-53.0) % Lymphocytes # (1.0-4.8) k/uL Carbon Dioxide (22-30) mmol/L BUN (9-20) mg/dL Creatinine (0.66-1.25) mg/dL Glucose (74-99) mg/dL POC Glucose (mg/dL) 308 H 369 H 132 H (70-110) mg/dL 09/22/23 09/22/23 09/22/23 Range/Units 06:06 06:57 06:57 RBC 2.55 L (4.30-5.90) m/uL Hgb 7.7 L (13.0-17.5) gm/dL Hct 24.0 L (39.0-53.0) % Lymphocytes # 0.7 L (1.0-4.8) k/uL Carbon Dioxide 21 L (22-30) mmol/L BUN 130 H* (9-20) mg/dL Creatinine 3.84 H (0.66-1.25) mg/dL Glucose 125 H (74-99) mg/dL POC Glucose (mg/dL) 150 H (70-110) mg/dL Assessment and Plan Assessment: 1. Acute kidney injury secondary to recent diuresis. Patient is currently asymptomatic. I have discussed renal replacement therapy with the patient. At this time there is no indication to proceed with acute hemodialysis however if the renal function does not improve significantly he will need to start renal replacement therapy soon. Renal function has improved with hydration. 2. Status post simultaneous kidney pancreas transplant in 2012 with failed p ancreatic transplant. Patient is visiting from [place]. He is maintained on Prograf and CellCept along with prednisone. Tacrolimus level was elevated at 14.6. Prograf discontinued yesterday. We can resume lower dose in couple of days and check level in about 5-7 days. 3. Hypokalemia associated with diuresis 4. Anemia with no evidence of iron deficiency. Mostly anemia of chronic disease 5. Metabolic acidosis associated with CK D and chronic use of calcineurin inhibitors maintained on sodium bicarb, CO2 is 24 Plan: Patient can be discharged from nephrology standpoint. Hold tacrolimus for 2 days and can resume on Sunday at 1 mg twice a day. Check tacrolimus level next week Bumex can be restarted at 1 mg twice a day tomorrow. Labs to be done in one week. Patient is going back to [place] on 10/14/2023. 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
[2023-09-23] MEDS ORDERED: BUMETANIDE 1 MG TAB PO SCH (16:00)
== END 2023-09-22 12:23 | disposition home or self-care (01) | DRG 683 ==
LOC: EC 11:27 → 4SSUR 13:46
PROVIDERS: ADMIT Internal Medicine; ATTEND Internal Medicine
DX: N17.9 Acute kidney failure, unspecified (principal); E87.1 Hypo-osmolality and hyponatremia; I13.2 Hypertensive heart and chronic kidney disease with heart failure and with stage 5 chronic kidney disease, or end stage renal disease; T86.19 Other complication of kidney transplant; E87.20 Acidosis, unspecified; I50.32 Chronic diastolic (congestive) heart failure; F17.210 Nicotine dependence, cigarettes, uncomplicated; F32.A Depression, unspecified; E78.5 Hyperlipidemia, unspecified; T50.2X5A Adverse effect of carbonic-anhydrase inhibitors, benzothiadiazides and other diuretics, initial encounter; E10.649 Type 1 diabetes mellitus with hypoglycemia without coma; N18.5 Chronic kidney disease, stage 5; E10.22 Type 1 diabetes mellitus with diabetic chronic kidney disease; D63.1 Anemia in chronic kidney disease; E87.6 Hypokalemia; L30.4 Erythema intertrigo; N49.2 Inflammatory disorders of scrotum; Y83.0 Surgical operation with transplant of whole organ as the cause of abnormal reaction of the patient, or of later complication, without mention of misadventure at the time of the procedure; Z96.41 Presence of insulin pump (external) (internal); X58.XXXA Exposure to other specified factors, initial encounter; Z79.02 Long term (current) use of antithrombotics/antiplatelets; Z79.52 Long term (current) use of systemic steroids; Z79.4 Long term (current) use of insulin; Z79.624 Long term (current) use of inhibitors of nucleotide synthesis; Z79.899 Other long term (current) drug therapy; Z86.73 Personal history of transient ischemic attack (TIA), and cerebral infarction without residual deficits; Z95.5 Presence of coronary angioplasty implant and graft
CPT/HCPCS: 36415; 71046; 74176; 80048; 80053; 80197; 81003; 83735; 84100; 85025; 85027; 85610; 85730; 96360; 96361; 99285